=== PATIENT | male | born 1945 | race Caucasian/White ===

== ENCOUNTER → 2018-05-06 21:32 | Outpatient (CLI) | payer MEDICARE, SELFPAY ==
[2018-05-06 21:50] LABS: Absolute Lymphocyte Count 2.33 X10^3/ul (0.83-4.51); Absolute Neutrophil Count 4.7 X10^3/uL (2.0-7.7); Basophil# 0.03 X10^3/uL; Basophil% 0.4 % (0-1); Eosinophil# 0.26 X10^3/uL; Eosinophils% 3.3 % (0-5); Hemoglobin 15.9 g/dl (13.0-16.5); Lymphocyte # 2.33 X10^3/ul (4.0); Lymphocyte % 29.7 % (19-41); Mean Corp Hgb Conc 33.8 g/gl (32-36); Mean Corpuscular Hgb 29.4 pg (27.0-32.0); Mean Platelet Vol. 10.8 fl (6.2-12.0); Monocyte# 0.48 X10^3/uL; Monocyte% 6.1 % (0-10); Neutrophil # 4.72 X10^3/uL (2.7-7.7); Neutrophil % 60.2 % (47-70); Platelet Count 225 K/mm3 (150-450); RBC Distribution Width CV 12.8 % (11.6-14.6); RBC Distribution Width SD 40.8 fl (35.1-43.9); White Blood Count 7.8 K/mm3 (4.4-11.0)
[2018-05-06 21:51] LABS: POSITIVE COUNT NO; POSITIVE DIFFERENTIAL NO; POSITIVE MORPHOLOGY NO
[2018-05-06 21:54] LABS: ALB/GLOB Ratio 1.1 RATIO (0.9-2.4); AST(SGOT) 21 U/L (15-37); Alanine Aminotransfer ALT/SGPT 34 U/L (16-61); Alkaline Phosphatase 92 U/L (45-117); Anion Gap 7 (5-15); BUN 16 mg/dL (7-18); BUN/Creat Ratio 16.2 RATIO (10-20); Calcium,Total 8.7 mg/dL (8.5-10.1); Chloride 103 mmol/L (98-107); Cholesterol 185 mg/dL (200); Creatinine, Serum 0.98 mg/dL (0.70-1.30); EST Glomerular Filtration Rate 80 mL/min (>60); Est Glom Filt Rate - Afr Amer 97 mL/min (>60); Globulin 3.7 g/dL (2.2-4.2); Glucose 119 mg/dL (74-106); High Density Lipoprotein 29 mg/dL; Potassium 4.2 mmol/L (3.5-5.1); Protein, Total 7.7 g/dL (6.4-8.2); Sodium Level 136 mmol/L (136-145); Triglycerides 378 mg/dL; Very Low Density Lipoprotein 76 mg/dL (5-40)
== END ==
PROVIDERS: Referring Provider Nurse Practitioner; Visit Provider Nurse Practitioner
DX: I10 Essential (primary) hypertension (principal)
CPT/HCPCS: 80053; 80061; 85025

== ENCOUNTER → 2019-05-06 21:53 | Outpatient (CLI) | payer MEDICARE, SELFPAY ==
[2019-05-06 16:41] VITALS: BMI 34.3
[2019-05-06 22:01] LABS: Absolute Lymphocyte Count 2.89 X10^3/uL (0.83-4.51); Absolute Neutrophil Count 5.1 X10^3/uL (2.0-7.7); Basophil# 0.04 X10^3/uL; Basophil% 0.5 % (0-1); Eosinophil# 0.23 X10^3/uL; Eosinophils% 2.6 % (0-5); Hematocrit 48.5 % (40-54); Hemoglobin 16.2 g/dL (13.0-16.5); Lymphocyte # 2.89 X10^3/ul (4.0); Lymphocyte % 32.8 % (19-41); Mean Corp Hgb Conc 33.4 g/dL (32-36); Mean Corpuscular Hgb 28.8 pg (27.0-32.0); Mean Corpuscular Volume 86.3 fL (80-94); Mean Platelet Vol. 11.7 fl (6.2-12.0); Monocyte# 0.52 X10^3/uL; Monocyte% 5.9 % (0-10); NRBC Flagged by Analyzer 0 % (0-5); Neutrophil # 5.11 X10^3/uL (2.7-7.7); Platelet Count 239 K/mm3 (150-450); RBC Distribution Width CV 12.4 % (11.6-14.6); RBC Distribution Width SD 38.7 fl (35.1-43.9); Red Blood Count 5.62 M/mm3 (4.6-6.2); White Blood Count 8.8 K/mm3 (4.4-11.0)
[2019-05-06 22:29] LABS: ALB/GLOB Ratio 1.1 RATIO (0.9-2.4); AST(SGOT) 28 U/L (15-37); Alanine Aminotransfer ALT/SGPT 39 U/L (16-61); Albumin, Serum 4.2 g/dL (3.2-5.0); Alkaline Phosphatase 87 U/L (45-117); Anion Gap 7 (5-15); BUN 20 mg/dL (7-18); BUN/Creat Ratio 21.5 RATIO (10-20); Calcium,Total 9.2 mg/dL (8.5-10.1); Chloride 100 mmol/L (98-107); Cholesterol 202 mg/dL (200); Creatinine, Serum 0.93 mg/dL (0.70-1.30); EST Glomerular Filtration Rate 85 mL/min (>60); Est Glom Filt Rate - Afr Amer 103 mL/min (>60); Globulin 3.7 g/dL (2.2-4.2); Glucose 108 mg/dL (74-106); High Density Lipoprotein 34 mg/dL; PSA,Total - Annual Screen 0.84 ng/mL (0.00-4.00); Potassium 4.3 mmol/L (3.5-5.1); Protein, Total 7.9 g/dL (6.4-8.2); Sodium Level 136 mmol/L (136-145); Triglycerides 379 mg/dL; Very Low Density Lipoprotein 76 mg/dL (5-40)
== END ==
PROVIDERS: Referring Provider Nurse Practitioner; Visit Provider Nurse Practitioner
DX: R35.0 Frequency of micturition (principal); I10 Essential (primary) hypertension; E78.1 Pure hyperglyceridemia; Z12.5 Encounter for screening for malignant neoplasm of prostate
CPT/HCPCS: 80053; 80061; 84153; 85025; G0103

== ENCOUNTER → 2020-05-03 21:17 | Outpatient (CLI) | payer MEDICARE, SELFPAY ==
[2020-05-03 15:18] VITALS: BMI 33.1
[2020-05-03 21:28] LABS: Absolute Lymphocyte Count 2.02 X10^3/uL (0.83-4.51); Absolute Neutrophil Count 5.9 X10^3/uL (2.0-7.7); Basophil# 0.04 X10^3/uL; Basophil% 0.5 % (0-1); Eosinophil# 0.13 X10^3/uL; Eosinophils% 1.5 % (0-5); Hematocrit 46.2 % (40-54); Hemoglobin 15.4 g/dL (13.0-16.5); Lymphocyte # 2.02 X10^3/ul (4.0); Lymphocyte % 23.5 % (19-41); Mean Corp Hgb Conc 33.3 g/dL (32-36); Mean Corpuscular Hgb 29.2 pg (27.0-32.0); Mean Corpuscular Volume 87.5 fL (80-94); Mean Platelet Vol. 11.6 fl (6.2-12.0); Monocyte# 0.44 X10^3/uL; Monocyte% 5.1 % (0-10); NRBC Flagged by Analyzer 0 % (0-5); Neutrophil # 5.93 X10^3/uL (2.7-7.7); Neutrophil % 69.1 % (47-70); Platelet Count 249 K/mm3 (150-450); RBC Distribution Width CV 12.3 % (11.6-14.6); RBC Distribution Width SD 39.6 fl (35.1-43.9); Red Blood Count 5.28 M/mm3 (4.6-6.2); White Blood Count 8.6 K/mm3 (4.4-11.0)
[2020-05-03 22:08] LABS: ALB/GLOB Ratio 1.1 RATIO (0.9-2.4); AST(SGOT) 21 U/L (15-37); Alanine Aminotransfer ALT/SGPT 35 U/L (16-61); Albumin, Serum 4.1 g/dL (3.2-5.0); Alkaline Phosphatase 88 U/L (45-117); Anion Gap 5 (5-15); BUN 15 mg/dL (7-18); BUN/Creat Ratio 15.3 RATIO (10-20); Calcium,Total 9.3 mg/dL (8.5-10.1); Chloride 101 mmol/L (98-107); Cholesterol 194 mg/dL (200); Creatinine, Serum 0.98 mg/dL (0.70-1.30); EST Glomerular Filtration Rate 80 mL/min (>60); Est Glom Filt Rate - Afr Amer 96 mL/min (>60); Globulin 3.7 g/dL (2.2-4.2); Glucose 102 mg/dL (74-106); High Density Lipoprotein 38 mg/dL; Potassium 4.3 mmol/L (3.5-5.1); Protein, Total 7.8 g/dL (6.4-8.2); Sodium Level 137 mmol/L (136-145); Triglycerides 319 mg/dL; Very Low Density Lipoprotein 64 mg/dL (5-40)
== END ==
LOC: OLS.AHF 21:18 → LABSPEC 05-04 06:30
PROVIDERS: Visit Provider Nurse Practitioner
DX: I10 Essential (primary) hypertension (principal); E11.9 Type 2 diabetes mellitus without complications
CPT/HCPCS: 80053; 80061; 85025

== ENCOUNTER → 2022-05-02 | Outpatient (CLI) | payer MEDICARE, SELFPAY ==
[2022-05-02 22:04] LABS: Absolute Lymphocyte Count 1.73 X10^3/uL (0.83-4.51); Absolute Neutrophil Count 4.8 X10^3/uL (2.0-7.7); Basophil# 0.03 X10^3/uL; Basophil% 0.4 % (0-1); Eosinophil# 0.22 X10^3/uL; Hematocrit 44.4 % (40-54); Hemoglobin 14.6 g/dL (13.0-16.5); Lymphocyte # 1.73 X10^3/ul (0.83-4.51); Mean Corp Hgb Conc 32.9 g/dL (32-36); Mean Corpuscular Hgb 29.2 pg (27.0-32.0); Mean Corpuscular Volume 88.8 fL (80-94); Monocyte# 0.45 X10^3/uL; Monocyte% 6.2 % (0-10); NRBC Flagged by Analyzer 0 % (0-5); Neutrophil # 4.77 X10^3/uL (2.7-7.7); Neutrophil % 66.1 % (47-70); Platelet Count 219 K/mm3 (150-450); RBC Distribution Width CV 12.4 % (11.6-14.6); RBC Distribution Width SD 40.2 fl (35.1-43.9); White Blood Count 7.2 K/mm3 (4.4-11.0)
[2022-05-02 22:33] LABS: ALB/GLOB Ratio 1.2 RATIO (0.9-2.4); AST(SGOT) 25 U/L (15-37); Alanine Aminotransfer ALT/SGPT 47 U/L (16-61); Albumin, Serum 3.9 g/dL (3.2-5.0); Alkaline Phosphatase 93 U/L (45-117); Anion Gap 5 (5-15); BUN 23 mg/dL (7-18); BUN/Creat Ratio 25.5 RATIO (10-20); Calcium,Total 8.9 mg/dL (8.5-10.1); Chloride 105 mmol/L (98-107); Cholesterol 102 mg/dL (200); EST Glomerular Filtration Rate 87 mL/min (>60); Est Glom Filt Rate - Afr Amer 106 mL/min (>60); Globulin 3.3 g/dL (2.2-4.2); Glucose 111 mg/dL (74-106); High Density Lipoprotein 39 mg/dL; PSA,Total - Annual Screen 0.85 ng/mL (0.00-4.00); Potassium 4.6 mmol/L (3.5-5.1); Protein, Total 7.2 g/dL (6.4-8.2); Sodium Level 138 mmol/L (136-145); Triglycerides 163 mg/dL; Very Low Density Lipoprotein 33 mg/dL (5-40)
[2022-05-02 22:41] LABS: Hemoglobin A1c 6.4 % (3.8-5.6)
== END | disposition home or self-care (01) ==
PROVIDERS: Visit Provider Nurse Practitioner
DX: I10 Essential (primary) hypertension (principal); E11.9 Type 2 diabetes mellitus without complications; N40.0 Benign prostatic hyperplasia without lower urinary tract symptoms; Z12.5 Encounter for screening for malignant neoplasm of prostate
CPT/HCPCS: 80053; 80061; 83036; 84153; 85025; G0103

== ENCOUNTER → 2023-04-22 | Outpatient (CLI) | payer MEDICARE, SELFPAY ==
[2023-04-22 21:47] LABS: Absolute Lymphocyte Count 1.79 X10^3/uL (0.83-4.51); Absolute Neutrophil Count 5.2 X10^3/uL (2.0-7.7); Basophil# 0.04 X10^3/uL; Basophil% 0.5 % (0-1); Eosinophil# 0.19 X10^3/uL; Eosinophils% 2.5 % (0-5); Hematocrit 44.3 % (40-54); Hemoglobin 14.9 g/dL (13.0-16.5); Lymphocyte # 1.79 X10^3/ul (0.83-4.51); Lymphocyte % 23.6 % (19-41); Mean Corp Hgb Conc 33.6 g/dL (32-36); Mean Corpuscular Hgb 29.4 pg (27.0-32.0); Mean Corpuscular Volume 87.4 fL (80-94); Mean Platelet Vol. 11.6 fl (6.2-12.0); Monocyte# 0.35 X10^3/uL; Monocyte% 4.6 % (0-10); NRBC Flagged by Analyzer 0 % (0-5); Neutrophil # 5.18 X10^3/uL (2.7-7.7); Neutrophil % 68.4 % (47-70); Platelet Count 224 K/mm3 (150-450); RBC Distribution Width CV 12.7 % (11.6-14.6); RBC Distribution Width SD 40.4 fl (35.1-43.9); Red Blood Count 5.07 M/mm3 (4.6-6.2); White Blood Count 7.6 K/mm3 (4.4-11.0)
[2023-04-22 22:07] LABS: ALB/GLOB Ratio 1.3 RATIO (0.9-2.4); AST(SGOT) 23 U/L (15-37); Alanine Aminotransfer ALT/SGPT 49 U/L (16-61); Albumin, Serum 3.9 g/dL (3.2-5.0); Alkaline Phosphatase 82 U/L (45-117); Anion Gap 6 (5-15); BUN 23 mg/dL (7-18); Calcium,Total 8.8 mg/dL (8.5-10.1); Chloride 104 mmol/L (98-107); Cholesterol 96 mg/dL (200); Creatinine, Serum 1.15 mg/dL (0.70-1.30); EST Glomerular Filtration Rate 66 mL/min (>60); Est Glom Filt Rate - Afr Amer 80 mL/min (>60); Globulin 2.9 g/dL (2.2-4.2); Glucose 148 mg/dL (74-106); High Density Lipoprotein 41 mg/dL; Potassium 4.1 mmol/L (3.5-5.1); Protein, Total 6.8 g/dL (6.4-8.2); Sodium Level 138 mmol/L (136-145); Triglycerides 103 mg/dL; Very Low Density Lipoprotein 21 mg/dL (5-40)
[2023-04-23 14:05] LABS: Hemoglobin A1c 6.4 % (3.8-5.6)
== END | disposition home or self-care (01) ==
PROVIDERS: Visit Provider Nurse Practitioner
DX: E11.9 Type 2 diabetes mellitus without complications (principal); I10 Essential (primary) hypertension; E78.1 Pure hyperglyceridemia; N40.0 Benign prostatic hyperplasia without lower urinary tract symptoms
CPT/HCPCS: 80053; 80061; 83036; 84153; 85025

== ENCOUNTER → 2024-04-16 | Outpatient (CLI) | payer MEDICARE, SELFPAY ==
[2024-04-16 21:55] LABS: Absolute Lymphocyte Count 1.71 X10^3/uL (0.83-4.51); Absolute Neutrophil Count 5.5 X10^3/uL (2.0-7.7); Basophil# 0.04 X10^3/uL; Basophil% 0.5 % (0-1); Eosinophil# 0.24 X10^3/uL; Hematocrit 44.2 % (40-54); Hemoglobin 14.7 g/dL (13.0-16.5); Lymphocyte # 1.71 X10^3/ul (0.83-4.51); Lymphocyte % 21.6 % (19-41); Mean Corp Hgb Conc 33.3 g/dL (32-36); Mean Corpuscular Hgb 29.1 pg (27.0-32.0); Mean Corpuscular Volume 87.5 fL (80-94); Mean Platelet Vol. 11.8 fl (6.2-12.0); Monocyte# 0.37 X10^3/uL; Monocyte% 4.7 % (0-10); NRBC Flagged by Analyzer 0 % (0-5); Neutrophil # 5.51 X10^3/uL (2.7-7.7); Neutrophil % 69.8 % (47-70); Platelet Count 220 K/mm3 (150-450); RBC Distribution Width CV 13.3 % (11.6-14.6); RBC Distribution Width SD 42.5 fl (35.1-43.9); Red Blood Count 5.05 M/mm3 (4.6-6.2); White Blood Count 7.9 K/mm3 (4.4-11.0)
[2024-04-16 22:15] LABS: ALB/GLOB Ratio 1.3 RATIO (0.9-2.4); AST(SGOT) 21 U/L (15-37); Alanine Aminotransfer ALT/SGPT 41 U/L (16-61); Alkaline Phosphatase 80 U/L (45-117); Anion Gap 5 (5-15); BUN 19 mg/dL (7-18); BUN/Creat Ratio 21.6 RATIO (10-20); Calcium,Total 9.2 mg/dL (8.5-10.1); Chloride 105 mmol/L (98-107); Cholesterol 95 mg/dL (200); Creatinine, Serum 0.88 mg/dL (0.70-1.30); EST Glomerular Filtration Rate 89 mL/min (>60); Est Glom Filt Rate - Afr Amer 108 mL/min (>60); Glucose 112 mg/dL (74-106); High Density Lipoprotein 40 mg/dL; PSA,Total - Annual Screen 1.08 ng/mL (0.00-4.00); Potassium 4.2 mmol/L (3.5-5.1); Sodium Level 137 mmol/L (136-145); Triglycerides 118 mg/dL; Very Low Density Lipoprotein 24 mg/dL (5-40)
== END | disposition home or self-care (01) ==
PROVIDERS: PCP Nurse Practitioner; Referring Provider Nurse Practitioner; Visit Provider Nurse Practitioner
DX: E11.65 Type 2 diabetes mellitus with hyperglycemia (principal); N40.0 Benign prostatic hyperplasia without lower urinary tract symptoms; E78.1 Pure hyperglyceridemia; I10 Essential (primary) hypertension; Z12.5 Encounter for screening for malignant neoplasm of prostate
CPT/HCPCS: 80053; 80061; 84153; 85025; G0103

== ENCOUNTER → 2025-04-14 | Outpatient (CLI) | payer MEDICARE, SELFPAY ==
--- OUTSIDE RECORDS SUMMARY | 2025-04-14 21:51 | XMS RPT_ITS | CCD ---
Author Organization [facility] Care Team Providers Care Loaf Counter Name Role Phone Gorge Moore Unavailable Unavailable Claude Medina Unavailable Unavailable Stefano MANAGER ENVIRONMENTAL HEALTH.Claude LÓPEZ Primary Care Provide r Stefano MANAGER ENVIRONMENTAL HEALTH.Claude LÓPEZ Primary Care Provide r CLAUDE MEDINA Primary Care Unavailable GABBY GAMA Referring Unavailable GABBY GAMA Attending Unavailable CLAUDE MEDINA Primary Care Unavailable Stefano MANAGER ENVIRONMENTAL HEALTH.Claude LÓPEZ Primary Care Provide r Medications Current Medications Medication Drug Class(es) Dates Sig (Normalized) Sig (Original) aspirin 81 mg delayed release oral tablet (5 sources) Platelet Aggregation Inhibitor, Nonsteroidal Anti-inflammatory Drug take 1 tablet by mouth once daily aspirin, enteric coated 81 mg ORAL EC tablet Take 81 mg by mouth once daily. Active Comment on above: Take 81 mg by mouth once daily. ASPIRIN/SOD BICARB/CITRIC ACID (SVITLANA-SELTZER ORAL) (5 sources) ASPIRIN/SOD BICARB/CITRIC ACID (SVITLANA-SELTZER ORAL) Take by mouth as needed. Active ASPIRIN/SOD BICA RB/CITRIC ACID (SVITLANA-SELTZER ORAL) Take by mouth as needed. 0 Active Comment on above: Take by mouth as nee ded. atenolol 100 mg oral tablet (5 sources) beta-Adrenergic Bobby take 1 tablet by mouth once daily atenolol 100 mg ORAL tablet Take 100 mg by mouth once daily. Active Comment on above: Take 100 mg by mouth once daily. atorvastatin 80 mg oral tablet (5 sources) HMG-CoA Reductase Inhibitor Start: 1 take 1 tablet by mouth once daily at bedtime atorvastatin (LIPITOR) 80 mg tablet 1 tablet by ORAL/FEEDING TUBE route daily at bedtime. 90 tablet 1 04/26/2021 Active Start: 04-26-2021 take 1 tablet by zina th once daily at bedtime atorvastatin (LIPITOR) 80 mg tablet 1 tablet by ORAL/FEEDING TUBE route daily at bedtime. 90 tablet 1 04/26/2021 Active Comment on above: 1 tablet by ORAL/FEE DING TUBE route daily at bedtime. cholecalciferol 0.025 mg oral capsule (5 sources) Vitamin D Cholecalciferol, Vitamin D3, (VITAMIN D) 25 mcg (1,000 unit) cap Take 1,000 Units by mouth once daily. Active Comment on above: Take 1,000 Units by mouth once daily. clopidogrel 75 mg oral tablet (5 sources) P2Y12 Platelet Inhibitor Start: 04-27-20 take 1 tablet by mouth once daily clopidogrel (PLAVIX) 75 mg tablet Take 1 tablet by mouth once daily for 88 doses. 88 tablet 04/27/2021 Active Comment on above: Take 1 tablet by zina th once daily for 88 doses. CYANOCOBALAMIN/COBAMAMID E (B12 SUBLINGUAL) (5 sources) CYANOCOBALAMIN/C OBA MAMIDE (B12 SUBLINGUAL) Dissolve under the tongue once daily. Active CYANOCOBALAMIN/C OBAMAMIDE (B12 SUBLINGUAL) Dissolve under the tongue once daily. 0 Active Comment on above: Dissolve under the t ongue once daily. esomeprazole 40 mg delayed release oral capsule (5 sources) Proton Pump Inhibitor take 1 capsule by mouth once daily esomeprazole (NEXIUM) 40 mg capsule Take 40 mg by mouth once daily. Active Comment on above: Take 40 mg by mouth once daily. hydroCHLOROthiazide / Lisinopril (5 sources) Thiazide Diuretic, Angiotensin Converting Enzyme Inhibitor take 20 mg by mouth twice daily LISINOPRIL-HYDROCHLO ROTHIAZIDE ORAL Take 20 mg by mouth twice daily. Active take 20 mg by mouth twice daily LISINOPRIL-HYDROCHLOROTHIAZIDE ORAL Take 20 mg by mouth twice daily. 0 Active Comment on above: Take 20 mg by mouth twice daily. meclizine hydrochloride 12.5 mg oral tablet (5 sources) Antiemetic take 2 tablets by mouth every eight hours as needed meclizine (ANTIVERT) 12.5 mg tab Take 25 mg by mouth three times daily as needed. Active Comment on above: Take 25 mg by mouth three times daily as needed. metFORMIN hydrochloride 500 mg oral tablet (5 sources) Biguanide take 1 tablet by mouth twice daily at mealtime metFORMIN (GLUCOPHAGE) 500 mg tablet Take 500 mg by mouth twice daily with meals. Active Comment on above: Take 500 mg by mouth twice daily with meals. Mcqmdnzdfrdwk-Nibimpcw-L utein (CENTRUM SILVER) ORAL Tab (5 sources) take 1 tablet by mouth once daily Multivitamins-Plodding Operator als-Lutein (CENTRUM SILVER) ORAL Tab Take 1 tablet by mouth once daily. Active take 1 tablet by zina th once daily Bdxouefummyps-Rhfljjsd-Hfewgg (CENTRUM S ILVER) ORAL Tab Take 1 tablet by mouth once daily. 0 Active Comment on above: Take 1 tablet by zina th once daily. Opumt-4-XKM-EPA-Fis h Oil (FISH OIL) 1,000 (120-180) mg cap (1 source) Start: 02-06-2024 take 2 capsules by mouth once daily Tglny-6-OQM-EPA-Fis h Oil (FISH OIL) 1,000 (120-180) mg cap Take 2 capsules by mouth once daily. 02/06/2024 Active psyllium husk (METAMUCIL ORAL) (1 source) psyllium husk (METAMUCIL ORAL) Take by mouth. Active turmeric/turmeric ext/pepr ext (TURMERIC-TURMERIC EXT-PEPPER) 500-3 mg cap (1 source) turmeric/turmeri c ext/pepr ext (TURMERIC-TURMERIC EXT-PEPPER) 500-3 mg cap Take by mouth. Active Completed/Discontinued Medications Medication Drug Class(es) Dates Sig (Normalized) Sig (Original) doxycycline hyclate 100 mg oral tablet (1 source) Tetracycline-clas s Drug Start: 09-20-2019 take 1 tablet by mouth once daily Doxycycline Monohydrate 100 MG Oral Tablet TAKE 1 TABLET EVERY 12 HOURS DAILY. Quantity: 20 Refills: 0 Gorge Moore MD Start : 20-Sep-2019 Active Problems Problem Classification Problem Date Documented Date Episodic/Chronic Acute cerebrovascular disease (7 sources) Cerebrovascular accident; Translations: [Cerebral infarction, unspecified] Onset: 04-24-2021 Chronic Diabetes mellitus without complication (5 sources) Type 2 diabetes mellitus; Translations: [Type 2 diabetes mellitus without complications] Onset: 04-24-2021 04-26-2021 Chronic Disorders of lipid metabolism (6 sources) Mixed hyperlipidemia; Translations: [Mixed hyperlipidemia] Onset: 10-19-2021 Chronic Essential hypertension (7 sources) Essential hypertension; Translations: [Essential (primary) hypertension] Onset: 04-24-2021 Chronic Occlusion or stenosis of precerebral arteries (14 sources) Bilateral stenosis of carotid arteries; Translations: [Occlusion and stenosis of bilateral carotid arteries] Onset: 04-24-2021 Chronic Other nutritional; endocrine; and metabolic disorders (5 sources) Obese class I; Translations: [Obesity, unspecified] Onset: 04-24-2021 04-26-2021 Chronic Other screening for suspected conditions (not mental disorders or infectious disease) (2 sources) Patient encounter status; Translations: [Encounter for screening for cardiovascular disorders] Episodic Otitis media and related conditions (1 source) Infection of ear; Translations: [Infection of left ear] Episodic Results Test Name Value Interpretation Reference Range Facility CNOVon 05-04-2024 CNOV Office Visit (VASSMD ) KAMAR FOUNTAIN ([id number]) 1945 M Date Time Provider Department 05/04/24 1:15 PM GABBY GAMA During your visit today, we recorded the following information about you: Pulse Blood pressure 83/minute 126/64 Gabby Gama DO 05/04/2024 2:19 PM Signed [facility] [place] [facility] OUTPATIENT VISIT DATE May 04, 2024 OUTPATIENT VISIT TYPE ESTABLISHED SERVICE DATE: 05/04/2024 SERVICE TIME: 1:15 PM PRIMARY CARE PHYSICIAN: Claude Medina APRN.PHYSICIAN NEONATOLOGY HISTORY OF PRESENT ILLNESS: Mr. Fountain is a 78 year old male who presents today for a vascular surgery follow-up visit after carotid duplex. He denies any complaints. Denies focal neurologic deficit PAST MEDICAL HISTORY Diagnosis Date Carotid artery stenosis 04/24/2021 Hypertension Mixed hyperlipidemia 10/19/2021 Stroke (cerebrum) ([facility]) 04/24/2021 Type 2 diabetes mellitus ([facility]) 04/24/2021 PAST SURGICAL HISTORY Procedure Laterality Date APPENDECTOMY HX SOCIAL HISTORY Social History Tobacco Use Smoking status: Former Current packs/day: 0.00 Types: Cigarettes Quit date: 09/22/1991 Years since quittin.6 Smokeless tobacco: Never Substance Use Topics Alcohol use: No Drug use: No MEDICATIONS: atorvastatin (LIPITOR) 80 mg tablet 1 tablet by ORAL/FEEDING TUBE route daily at bedtime. metFORMIN (GLUCOPHAGE) 500 mg tablet Take 500 mg by mouth twice daily with meals. atenolol 100 mg ORAL tablet Take 100 mg by mouth once daily. aspirin, enteric coated 81 mg ORAL EC tablet Take 81 mg by mouth once daily. meclizine (ANTIVERT) 12.5 mg tab Take 25 mg by mouth three times daily as needed. (Patient not taking: Reported on 10/19/2021 ) Cholecalciferol, Vitamin D3, (VITAMIN D) 25 mcg (1,000 unit) cap Take 1,000 Units by mouth once daily. clopidogrel (PLAVIX) 75 mg tablet Take 1 tablet by mouth once daily for 88 doses. (Patient not taking: Reported on 10/19/2021 ) LISINOPRIL-HYDROCHLOROT HIAZIDE ORAL Take 20 mg by mouth twice daily. Multivitamins-Minerals- Lutein (CENTRUM SILVER) ORAL Tab Take 1 tablet by mouth once daily. CYANOCOBALAMIN/COBAMAMI DE (B12 SUBLINGUAL) Dissolve under the tongue once daily. esomeprazole (NEXIUM) 40 mg capsule Take 40 mg by mouth once daily. (Patient not taking: Reported on 10/19/2021 ) ASPIRIN/SOD BICARB/CITRIC ACID (SVITLANA-SELTZER ORAL) Take by mouth as needed. ALLERGIES: ALLERGIES No Known Allergies PHYSICAL EXAM: There were no vitals taken for this visit. Gen- no distress Neuro- no focal deficit Diagnostic tests reviewed for today's visit: Most recent labs Most recent imaging Carotid Duplex Compared to prior study of 02/26/2023, No change from previous study. RIGHT SIDE Common carotid artery: Plaque visualized without evidence of hemodynamically significant stenosis. Internal carotid artery: Occluded. Known occlusion. External carotid artery: Patent. Vertebral artery: Patent and antegrade flow noted. Innominate artery: Patent. Subclavian artery: Patent. LEFT SIDE Common carotid artery: Plaque visualized without evidence of hemodynamically significant stenosis. Internal carotid artery: 20-39% stenosis. External carotid artery: Patent. Vertebral artery: Patent and antegrade flow noted. Subclavian artery: Patent. IMPRESSION: Mr. Fountain is a 78 year old male with carotid artery stenosis . PLAN and RECOMMENDATIONS: Continue surveillance Recommend continued blood pressure and cholesterol control Follow up in 2 years with repeat imaging SIGNATURE: Gabby Gama DO PATIENT NAME: Kamar Fountain DATE: May 04, 2024 TIME: 1:15 PM Referring Provider: GABBY GAMA [[id number]] Allergies As of Date: 05/04/2024 (No Known Allergies) Date Reviewed: 05/04/2024 Reviewed by: Chana Bonilla OCCA - Fully Assessed Reason for Visit: Established Patient [175] Primary Visit Diagnosis:Bilateral carotid artery stenosis [I65.23] Prescriptions as of 05/04/2024 - psyllium husk (METAMUCIL ORAL) Take by mouth. - Wioxd-1-EZT-EPA-Fish Oil (FISH OIL) 1,000 (120-180) mg cap Take 2 capsules by mouth once daily. - turmeric/turmeric ext/pepr ext (TURMERIC-TURMERIC EXT-PEPPER) 500-3 mg cap Take by mouth. - meclizine (ANTIVERT) 12.5 mg tab Take 25 mg by mouth three times daily as needed. - Cholecalciferol, Vitamin D3, (VITAMIN D) 25 mcg (1,000 unit) cap Take 1,000 Units by mouth once daily. - atorvastatin (LIPITOR) 80 mg tablet 1 tablet by ORAL/FEEDING TUBE route daily at bedtime. - clopidogrel (PLAVIX) 75 mg tablet Take 1 tablet by mouth once daily for 88 doses. - metFORMIN (GLUCOPHAGE) 500 mg tablet Take 500 mg by mouth twice daily with meals. - atenolol 100 mg ORAL tablet Take 100 mg by mouth once daily. - LISINOPRIL-HYDROCHLOROT HIAZIDE ORAL T (more content not included)... Normal [facility] CAROTID ARTERIES [facility]AS LABon 05-04-2024 US CAROTID ARTERIES [facility] Non-Invasive Vascular Laboratory [facility] Carotid Duplex Bilateral/Complete Date of service/time: 05/04/2024 12:28:25 PM Name: KAMAR FOUNTAIN Date of : 1945 Age: 78 years Gender: M Medical History Tobacco: Former Carotid artery disease: Yes Hypertension: Yes Diabetes: Yes Clinical Indication Follow-up study on a patient with known carotid disease. TECHNIQUE -------- A carotid duplex ultrasound examination was performed, including grayscale imaging and color Doppler and spectral Doppler examination of the below mentioned arteries. FINDINGS -------- RIGHT SIDE Common carotid artery: Origin: PSV: 60 cm/s. EDV: 0 cm/s. Proximal: PSV: 93 cm/s. EDV: 0 cm/s. Mid: PSV: 92 cm/s. EDV: 0 cm/s. Distal: PSV: 41 cm/s. EDV: 7 cm/s. Mild heterogeneous calcified plaque at distal. Internal carotid artery: Origin: PSV: 0 cm/s. EDV: 0 cm/s. Proximal: PSV: 0 cm/s. EDV: 0 cm/s. Mid: PSV: 0 cm/s. EDV: 0 cm/s. Distal: PSV: 0 cm/s. EDV: 0 cm/s. ICA/CCA Ratio: 0.0 External carotid artery: PSV: 84 cm/s. EDV: 10 cm/s. heterogeneous calcified and shadowing plaque at origin. Subclavian artery: Proximal: PSV: 99 cm/s. EDV: 0 cm/s. Innominate artery: PSV: 75 cm/s. EDV: 0 cm/s. Vertebral artery: PSV: 46 cm/s. EDV: 13 cm/s. LEFT SIDE Common carotid artery: Proximal: PSV: 68 cm/s. EDV: 17 cm/s. Mid: PSV: 77 cm/s. EDV: 21 cm/s. Distal: PSV: 64 cm/s. EDV: 19 cm/s. Mild heterogeneous plaque at distal. Internal carotid artery: Origin: PSV: 75 cm/s. EDV: 19 cm/s. Proximal: PSV: 80 cm/s. EDV: 21 cm/s. Mid: PSV: 80 cm/s. EDV: 29 cm/s. Distal: PSV: 75 cm/s. EDV: 24 cm/s. heterogeneous calcified and shadowing plaque from origin to proximal. ICA/CCA Ratio: 1.2 External carotid artery: PSV: 87 cm/s. EDV: 14 cm/s. Subclavian artery: Proximal: PSV: 94 cm/s. EDV: 0 cm/s. Vertebral artery: PSV: 29 cm/s. EDV: 8 cm/s. IMPRESSION Irregular cardiac rhythm noted. Compared to prior study of 02/26/2023, No change from previous study. RIGHT SIDE Common carotid artery: Plaque visualized without evidence of hemodynamically significant stenosis. Internal carotid artery: Occluded. Known occlusion. External carotid artery: Patent. Vertebral artery: Patent and antegrade flow noted. Innominate artery: Patent. Subclavian artery: Patent. LEFT SIDE Common carotid artery: Plaque visualized without evidence of hemodynamically significant stenosis. Internal carotid artery: 20-39% stenosis. External carotid artery: Patent. Vertebral artery: Patent and antegrade flow noted. Subclavian artery: Patent. Technologist: Alyssa Rice T Ordering physician: GABBY GAMA Interpreting physician: Juan Farah MD, RPVI Final CC [facility] : [id number] ISUID See Link below for Image Normal [facility] Basic Metabolic Panlon 04-26 Anion gap [Moles/Vol] 8 mmol/L Low -18 [facility] Comment on above: Performed By: #### B MP, CBC ####[facility] [address] [place], [place] [phone] Calcium [Mass/Vol] 9.2 mg/dL Normal 8.5-10.2 [facility] Comment on above: Performed By: #### B MP, CBC ####[facility] [address] [place] [address] Chloride [Moles/Vol] 101 mmol/L Normal 97-105 [facility] Comment on above: Performed By: #### B MP, CBC ####[facility] [address] [place] [address] CO2 [Moles/Vol] 26 mmol/L Normal 22-30 [facility] Comment on above: Performed By: #### B MP, CBC ####[facility] [address] [place] [address] Creatinine [Mass/Vol] 0.88 mg/dL Normal 0.73-1.22 [facility] Comment on above: Performed By: #### B MP, CBC ####[facility] [address] [place] [address] eGFR- Amer. >60 Normal [facility] Comment on above: Performed By: #### B MP, CBC ####[facility] [address] [place] [address] eGFR-All Other Races >60 Normal [facility] Comment on above: Result Comment: eGFR (Estimated GFR) Units of measure: mL/min/1.73 meters squared eGFR is derived from the reexpressed MDRD Study equation using the following parameters: serum creatinine, age, gender and race. The creatinine assay has been calibrated to be traceable to IDMS. An eGFR <60 mL/min/1.73m2 for >3 months is consistent with chronic kidney disease. Refer to KDOQI guidelines for clinical interpretation. In patients with unstable renal function, e.g. those with acute kidney injury, the eGFR may not accurately reflect actual GFR. Performed By: #### B MP, CBC ####[facility] [address] [place] [address] Glucose [Mass/Vol] 111 mg/dL High 74-99 [facility] Comment on above: Result Comment: The Stateless Diabetes Association (ADA) provides guidance for cutoff values for fasting glucose and random glucose. The ADA defines fasting as no caloric intake for at least 8 hours. Fasting plasma glucose results between 100 to 125 mg/dL indicate increased risk for diabetes (prediabetes). Fasting plasma glucose results greater than or equal to 126 mg/dL meet the criteria for diagnosis of diabetes. In the absence of unequivocal hyperglycemia, results should be confirmed by repeat testing. In a patient with classic symptoms of hyperglycemia or hyperglycemic crisis, random plasma glucose results greater than or equal to 200 mg/dL meet the criteria for diagnosis of diabetes. Reference: Standards of Medical Care in Diabetes 2016, Stateless Diabetes Association. Diabetes Care. 2016.39(Suppl 1). Performed By: #### B MP, CBC ####[place] [address] Potassium [Moles/Vol] 3.9 mmol/L Normal 3.7-5.1 [facility] Comment on above: Performed By: #### B MP, CBC ####[place] [address] Sodium [Moles/Vol] 135 mmol/L Low 136-144 [facility] Comment on above: Performed By: #### B MP, CBC ####[place] [address] Urea nitrogen [Mass/Vol] 16 mg/dL Normal 9-24 [facility] Comment on above: Performed By: #### B MP, CBC ####[place] [address] CBCon 04-26-2021 Absolute nRBC <0.01 Normal <0.01 [facility] Comment on above: Performed By: #### B MP, CBC ####[place] [address] Erythrocyte distribution width (RBC) [Ratio] 12.5 % Normal 11.5-15.0 [facility] Comment on above: Performed By: #### B MP, CBC ####[place] [address] Hematocrit (Bld) [Volume fraction] 43.0 % Normal 39.0-51.0 [facility] Comment on above: Performed By: #### B MP, CBC ####[place] [address] Hemoglobin (Bld) [Mass/Vol] 14.9 g/dL Normal 13.0-17.0 [facility] Comment on above: Performed By: #### B MP, CBC ####[place] [phone] MCH 30.4 pG Normal 26.0-34.0 [facility] Comment on above: Performed By: #### B MP, CBC ####[facility] [address] [place], [place] [phone] MCHC (RBC) [Mass/Vol] 34.7 g/dL Normal 30.5-36.0 [facility] Comment on above: Performed By: #### B MP, CBC ####[facility] [address] [place], [place] [phone] MCV (RBC) [Entitic vol] 87.8 fL Normal 80.0-100.0 [facility] Comment on above: Performed By: #### B MP, CBC ####[facility] [address] [place], [place] [phone] Platelet mean volume (Bld) [Entitic vol] 11.3 fL Normal 9.0-12.7 [facility] Comment on above: Performed By: #### B MP, CBC ####[facility] [address] [place], [place] [phone] Platelets (Bld) [#/Vol] 212 10*3/uL Normal 150-400 [facility] Comment on above: Performed By: #### B MP, CBC ####[facility] [address] [place], [place] [phone] RBC (Bld) [#/Vol] 4.90 10*6/uL Normal 4.20-6.00 [facility] Comment on above: Performed By: #### B MP, CBC ####[facility] [address] [place], [place] [phone] WBC (Bld) [#/Vol] 8.25 10*3/uL Normal 3.70-11.00 [facility] Comment on above: Performed By: #### B MP, CBC ####[facility] [address] [place], [place] [phone] CNDSon 04-26-2021 CNDS HNO ID: [id number] Author: Jasmine Alcantara DO Service: Hospital Medicine Author Type: Physician Type: Discharge Summary Filed: 04/26/2021 11:09 AM Note Text: DISCHARGE SUMMARY PATIENT NAME: Kamar Fountain ADMISSION DATE: 04/23/2021 DISCHARGE DATE: 04/26/2021 ATTENDING PHYSICIAN: Jasmine Alcantara DO Code Status: Not on file Highest Readmission Risk Score: 15 The 30 day readmissions risk score is derived from an internally validated risk model which evaluates patient level characteristics, utilization history, medication orders and lab results up until the day of discharge. Patients with a score of 40 or above are considered highest risk for readmission. Specific patient level drivers will be listed at the bottom of the summary. CONSULTING TEAMS DURING HOSPITALIZATION: Treatment Team: Attending Provider: Jasmine Alcantara DO Consulting: MD Dr. Elizabteh Hirsch [facility] REASON FOR HOSPITALIZATION: Acute Stroke DIAGNOSIS: Principal Problem: Stroke (cerebrum) (HCC) POA: Yes Active Problems: Type 2 diabetes mellitus (HCC) POA: Unknown Hypertension POA: Unknown Obesity (BMI 30.0-34.9) POA: Unknown Carotid artery stenosis POA: Unknown Resolved Problems: * No resolved hospital problems. * OPERATIONS DURING HOSPITALIZATION: None PROCEDURES DURING HOSPITALIZATION: Echocardiogram The left ventricle is normal in size. There is mild septal left ventricular hypertrophy. Left ventricular systolic function is normal. EF = 69 ? 5% (2D biplane) Definity contrast used for endocardial border detection. Normal left ventricular diastolic function. - The right ventricle is dilated. Right ventricular systolic function is normal. - The right atrial cavity is dilated. - The visualized aorta is borderline dilated with a maximal dimension of 3.8 cm. - Tivial to mild tricuspid regurgitation. MRI Brain SMALL 8 MM FOCUS OF RESTRICTED DIFFUSION INVOLVING THE LEFT POSTERIOR/INFERIOR FRONTAL LOBE, COMPATIBLE WITH ACUTE INFARCT. NONSPECIFIC SMALL FOCI OF HIGH T2 SIGNAL INTENSITY SEEN INVOLVING THE WHITE MATTER, LIKELY REPRESENTING MILD CHRONIC MICROVASCULAR ISCHEMIC CHANGES. ABNORMAL FLOW VOID OF THE RIGHT INTERNAL CAROTID ARTERY, COMPATIBLE WITH OCCLUSION SEEN ON PRIOR CTA DATED 04/23/2021. CTA Brain ?Complete occlusion of the right ICA from origin to intradural communicating segment. Primary differential considerations include dissection versus thrombosis. * ?Moderate to severe calcified plaque of the left ICA bulb with approximately 60% stenosis. Moderate stenosis of the left nondominant vertebral artery origin and C5 foraminal segment. Otherwise, no significant stenosis on CTA neck. HOSPITAL COURSE: This is a 75 year old male with a history of hypertension, obesity, previous smoker, hard of hearing right ear. Patient was in apparent normal state of health until yesterday afternoon @1 PM when he developed dizziness which he describes as the room spinning around him including everything in the room. The dizziness persisted and subsequently he started having nausea with clear-colored emesis multiple times. He denies any headache, no change in vision, speech problem, gait problems, focal weakness, paresthesia, abdominal pain, chest pain, shortness of breath, fever no chills. He denies any URI symptoms recently, no tinnitus. No prior symptoms nor history of migraines ? The emergency room, blood pressure 152/72, pulse 76, temperature 97.4, respiratory rate 18. Labs with leukocytosis 14.54, hyperglycemia 225. COVID-19 negative. Troponin less than 0.01 CT brain no acute process. 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 Primary differential considerations includes dissection versus thrombosis Moderate to severe calcified plaque of the left ICA bulb with approximately 60% stenosis. Moderate stenosis of the left nondominant vertebral artery origin and C5 foraminal segment. EKG sinus rhythm with marked sinus arrhythmia. Chronic incomplete right bundle branch block. QTc 436. He received 1 L of normal saline, meclizine 25 mg x 1 and Ativan 1 mg x1 before admission On admission he was placed on stroke protocol. MRI of the brain was done and positive for stroke. He was seen in consult by tele-neurology. He was started on plavix and continued on aspirin therapy. He was also started on high dose statin. Echocardiogram was obtained. Risk factor modification was discussed. Neurology recommended DAPT for 3 months, follow up with stroke neuro then determine continuation of the plavix. He was also seen in consult by vascular surgery for carotid artery occlusion and stenosis. Statin and DAPT were recommended with outpatient follow up. His dizziness resolved and balance improved over the next 48 hours. He was seen by PT and outpatient PT was advised, but patient declined (more content not included)... Normal [facility] THERAPY NTon 04-26-2021 THERAPY NT HNO ID: [id number] Author: Suzanne Pierre OT/L Service: Occupational Therapy Author Type: Occupational Therapist Type: Therapy (PT/OT/Speech/Resp) Filed: 04/26/2021 10:19 AM Note Text: OCCUPATIONAL THERAPY MISSED VISIT SERVICE DATE: 04/26/2021 SERVICE TIME: 1018 to 1018 ROOM: [place] [address] Attempted Evaluation. Patient not seen due to No Skilled Needs. Pt reports no concerns with self care tasks at this time. Per RN, pt ready for d/c. Will discontinue OT order, please re-consult pending change in status. SIGNATURE: Suzanne Pierre OT/L PATIENT NAME: Kamar Fountain DATE: April 26, 2021 TIME: 10:18 AM [facility] ALLIED HEALTHon 04-25-2021 ALLIED HEALTH HNO ID: [id number] Author: DODIE Ulrich Service: Radiology Author Type: Clinical Hairspring Assembler Type: Allied Health Filed: 04/25/2021 10:59 AM Note Text: Radiology Service Progress Note PATIENT NAME: Kamar Fountain DATE OF SERVICE: April 25, 2021 TIME: 10:59 AM PATIENT IDENTITY VERIFICATION COMPLETED USING TWO (2) IDENTIFIERS: Name and Date of confirmed by patient verbally. FALL SCREENING: Has the patient had 2 falls in the last year or 1 fall with injury or currently using an Ambulatory Assistive Device (Walker, Cane, Wheelchair, Crutches, etc.)? Inpatient: Screened on floor PATIENT GENDER DATA: Male PATIENT RELEVANT IMPLANT DATA REVIEWED: Not Applicable RADIOLOGY DEPARTMENT: Ultrasound PERIPHERAL IV DATA: Not applicable SIGNED BY: DODIE Ulrich April 25, 2021 10:59 AM [facility] ASP/VINCENT Resist Panelon 04-25 ADP Max Aggreg 23 % Max Low 65-93 [facility] Comment on above: Performed By: #### A SPCLP ####[facility] [place], [place] [phone] Arach Max Aggreg 8 % Max Low 75-100 [facility] Comment on above: Performed By: #### A SPCLP ####[address] [phone] Interpretation (NOTE) Normal [facility] Comment on above: Result Comment: Perf orming Pathologist: Magda Paredes Interpretation: Abnormal - see comment below. The platelet aggregation study is abnormal and suggests combined therapy with aspirin and clopidogrel. If the patient is on aspirin therapy, the degree of platelet inhibition indicates aspirin responsiveness because the arachidonic acid aggregation is <20 percent and the ADP aggregation is <70 percent. These parameters were developed at the [facility] utilizing the assay and reagents performed on this patient's platelets. Moses OCASIO. Shayne Hutchinson. Diana OCASIO. Markie ROSEN. A prospective, blinded determination of the natural history of aspirin resistance among stable patients with cardiovascular disease. Journal of the Stateless College of Cardiology. 41(6):961-5, 2002. There is a decrease in ADP-induced platelet aggregation. Guidelines for optimal platelet inhibition during clopidogrel therapy have not been well-established. However, if the patient is currently receiving clopidogrel therapy, the results suggest clopidogrel response. No prior aspirin/clopidogrel results are available for comparison with the current study. The medication record indicates therapy with aspirin at 81 mg/day plus clopidogrel at 75 mg/day. Please correlate these laboratory results with clinical findings and medication history. Performed By: #### A SPCLP ####[facility] [address] [place], [place] [phone] Basic Metabolic Panlon 04-25 Anion gap [Moles/Vol] 9 mmol/L Normal 9-18 [facility] Comment on above: Performed By: #### B MP, CBC ####[facility] [address] [place] [address] Calcium [Mass/Vol] 9.3 mg/dL Normal 8.5-10.2 [facility] Comment on above: Performed By: #### B MP, CBC ####[facility] Ibynatbawe0567 [address] Chloride [Moles/Vol] 101 mmol/L Normal 97-105 [facility] Comment on above: Performed By: #### B MP, CBC ####[facility] Lzsigyrajs2944 [address] CO2 [Moles/Vol] 29 mmol/L Normal 22-30 [facility] Comment on above: Performed By: #### B MP, CBC ####[facility] Kuvqzmdtcy0168 [address] Creatinine [Mass/Vol] 0.95 mg/dL Normal 0.73-1.22 [facility] Comment on above: Performed By: #### B MP, CBC ####[facility] [address] [place] [address] eGFR- Amer. >60 Normal [facility] Comment on above: Performed By: #### B MP, CBC ####[facility] [address] [place] [address] eGFR-All Other Races >60 Normal [facility] Comment on above: Result Comment: eGFR (Estimated GFR) Units of measure: mL/min/1.73 meters squared eGFR is derived from the reexpressed MDRD Study equation using the following parameters: serum creatinine, age, gender and race. The creatinine assay has been calibrated to be traceable to IDMS. An eGFR <60 mL/min/1.73m2 for >3 months is consistent with chronic kidney disease. Refer to KDOQI guidelines for clinical interpretation. In patients with unstable renal function, e.g. those with acute kidney injury, the eGFR may not accurately reflect actual GFR. Performed By: #### B MP, CBC ####[facility] [address] [place] [address] Glucose [Mass/Vol] 116 mg/dL High 74-99 [facility] Comment on above: Result Comment: The Stateless Diabetes Association (ADA) provides guidance for cutoff values for fasting glucose and random glucose. The ADA defines fasting as no caloric intake for at least 8 hours. Fasting plasma glucose results between 100 to 125 mg/dL indicate increased risk for diabetes (prediabetes). Fasting plasma glucose results greater than or equal to 126 mg/dL meet the criteria for diagnosis of diabetes. In the absence of unequivocal hyperglycemia, results should be confirmed by repeat testing. In a patient with classic symptoms of hyperglycemia or hyperglycemic crisis, random plasma glucose results greater than or equal to 200 mg/dL meet the criteria for diagnosis of diabetes. Reference: Standards of Medical Care in Diabetes 2016, Stateless Diabetes Association. Diabetes Care. 2016.39(Suppl 1). Performed By: #### B MP, CBC ####[facility] Epnwavatxf0449 [address] Potassium [Moles/Vol] 4.0 mmol/L Normal 3.7-5.1 [facility] Comment on above: Performed By: #### B MP, CBC ####[facility] Fzjjxtqsew6728 [address] Sodium [Moles/Vol] 139 mmol/L Normal 136-144 [facility] Comment on above: Performed By: #### B MP, CBC ####[facility] [address] [place] [address] Urea nitrogen [Mass/Vol] 15 mg/dL Normal 9-24 [facility] Comment on above: Performed By: #### B MP, CBC ####[facility] [address] [place] [address] CBCon 04-25-2021 Absolute nRBC <0.01 Normal <0.01 [facility] Comment on above: Performed By: #### B MP, CBC ####[facility] [address] [place] [address] Erythrocyte distribution width (RBC) [Ratio] 12.8 % Normal 11.5-15.0 [facility] Comment on above: Performed By: #### B MP, CBC ####[place] [address] Hematocrit (Bld) [Volume fraction] 44.3 % Normal 39.0-51.0 [facility] Comment on above: Performed By: #### B MP, CBC ####[place] [address] Hemoglobin (Bld) [Mass/Vol] 15.2 g/dL Normal 13.0-17.0 [facility] Comment on above: Performed By: #### B MP, CBC ####[place] [address] MCH 30.3 pG Normal 26.0-34.0 [facility] Comment on above: Performed By: #### B MP, CBC ####[facility] [address] [place] [address] MCHC (RBC) [Mass/Vol] 34.3 g/dL Normal 30.5-36.0 [facility] Comment on above: Performed By: #### B MP, CBC ####[place] [address] MCV (RBC) [Entitic vol] 88.2 fL Normal 80.0-100.0 [facility] Comment on above: Performed By: #### B MP, CBC ####[facility] [address] [place] [address] Platelet mean volume (Bld) [Entitic vol] 10.9 fL Normal 9.0-12.7 [facility] Comment on above: Performed By: #### B MP, CBC ####[facility] Tseap[address]rfr6000 [phone] Platelets (Bld) [#/Vol] 203 10*3/uL Normal 150-400 [facility] Comment on above: Performed By: #### B MP, CBC ####[facility] Texyfangdj7647 [phone] RBC (Bld) [#/Vol] 5.02 10*6/uL Normal 4.20-6.00 [facility] Comment on above: Performed By: #### B MP, CBC ####[facility] [address] [place], [place] [phone] WBC (Bld) [#/Vol] 8.85 10*3/uL Normal 3.70-11.00 [facility] Comment on above: Performed By: #### B MP, CBC ####[facility] [address] [place], [place] [phone] CONSULT PROGon 04-25-2021 CONSULT PROG HNO ID: [id number] Author: Sherrie Castano MD Service: Neurology General Author Type: Physician Type: Consult Progress Note Filed: 04/25/2021 4:55 PM Note Text: [facility] TeleNeurology Consult Note Patient seen using Teleneurology Services. Recommendations are placed in the chart. Please review. For questions after hours, when teleneurologist is not available, for [place]: Please Page [phone] for the [facility] Neurology Group from 12pm to 8Am Admitting Provider/Consulted by:Gina Lopez MD Time of Note:04/25/2021 Patient Name:Kamar Fountain Admit Date:04/23/2021 Hospital Day:1 Patient is not dizzy any more. No weakness or numbness. Current Inpatient Medications: Scheduled meds: Current Facility-Administered Medications Medication Dose Route Frequency Provider Last Rate Last Admin - enoxaparin 40 mg injection (LOVENOX) 40 mg SUBCUTANEOUS q 24 HR Gina Lopez MD 40 mg at 04/25/21 0532 - NaCl 0.9% iv flush bag 20 mL INTRAVENOUS PRN Gina Lopez MD - sodium chloride 0.9 % (flush) 3-5 mL (BD POSIFLUSH) 3-5 mL INTRAVENOUS q 12 H Gina Lopez MD 5 mL at 04/24/212099 - sodium chloride 0.9 % (flush) 2-10 mL (BD POSIFLUSH) 2-10 mL INTRAVENOUS q 12 H Gina Lopez MD 5 mL at 04/24/21 2100 - aspirin 81 mg chewable tab(s) 81 mg ORAL/FEEDING TUBE DAILY Gina Lopez MD 81 mg at 04/24/21 0956 Or - aspirin 300 mg suppository 300 mg RECTAL DAILY Gina Lopez MD - ondansetron (PF) 4 mg injection (ZOFRAN) 4 mg INTRAVENOUS q 6 H PRN Gina Lopez MD - meclizine 25 mg tab(s) (ANTIVERT) 25 mg ORAL TID PRN Gina Lopez MD - dextrose 40 % 15 g 15 g ORAL PRN Gina Lopez MD Or - glucagon 1 mg injection 1 mg INTRAMUSCULAR PRN Gina Lopez MD Or - dextrose 50% in water 25 mL syringe 12.5 g INTRAVENOUS PRN Gina Lopez MD - pantoprazole DR 40 mg tab(s) (PROTONIX) 40 mg ORAL DAILY (6 AM) Gina Lopez MD 40 mg at 04/25/21 05 - clopidogrel 75 mg tab(s) (PLAVIX) 75 mg ORAL DAILY Sherrie Castano MD - atorvastatin 80 mg tab(s) (LIPITOR) 80 mg ORAL/FEEDING TUBE AT BEDTIME Sherrie Castano MD 80 mg at 04/24/212007 - sodium chloride 0.9 % (flush) 2-10 mL (BD POSIFLUSH) 2-10 mL INTRAVENOUS DIRECTED PRN Jasmine Alcantara DO And - perflutren lipid microspheres 1.1 mg/mL 1.3 mL injection (DEFINITY) 1.3 mL INTRAVENOUS DIRECTED PRN Jasmine Alcantara DO PHYSICAL EXAM: Performed over the teleneurology video Assisted by the teleneurology nurse at patient bedside BP 135/63 Pulse 60 Temp 36.3 ?C (97.4 ?F) (Temporal) Resp 18 Ht 175.3 cm (5' 9) Wt 100.4 kg (221 lb 5.5 oz) SpO2 95% BMI 32.69 kg/m? General Appearance: Well appearing, alert, in no acute distress, well-hydrated, well nourished. Neurological: ? Mental Status: Alert, with normal speech and language. Attention and concentration appeared normal. Oriented x 3. - Cranial Nerves: - CNII: Visual acuity normal, Visual eddy full to confrontation, Pupils OD 2-3mm, OS 2-3mm, equal, round and reactive to light, - CNIII, IV, : full extraoccular movements, nystagmus at primary gaze as well as right gaze. - CN V: Facial sensation intact bilaterally to fine touch and pinprick, masseter 5/5 - CN VII: right facial droop - CN VIII: Hears finger rub well bilaterally - CN IX: Gag Reflex Not examined - CN X: Palate elevates symmetrically - CN XI: Full strength shoulder shrug bilaterally - CN XII: Tongue protrusion full and midline ? Motor Exam: no muscle atrophy Individual muscle group was not assessed due to the indirect encounter over teleneurology RIGHT LEFT MUSCLES Upper Extremity 5 5 MUSCLES Lower Extremity 5 5 ? Reflexes Right Left Bicep 2/4 2/4 Tricep 2/4 2/4 Knee 0/4 0/4 Plantar Response Downward response Downward response ? Complex motor and coordination: No resting, postural or action tremor. No asterixis. Finger-to- nose-finger intact bilaterally Wbav-ye-vmai intact bilaterally. ? Sensory: Intact to light touch b/l. ? Gait: not assessed NIHSS: 1(a). Mental Status - LOC 0 = Alert and Attentive 1(b). LOC Questions 0 = Correct age and month 1(c). LOC-Commands 0 = Both 2. Gaze 0 = Normal 3. Visual Eddy 0 = Full 4. Facial Weakness 1 = Minor, lower 5(a). Left Arm 0 = No drift 5(b). Right Arm 0 = No drift 6(a). Left Leg 0 = No drift 6(b). Right Leg 0 = No drift 7. Ataxia 0 = Absent 8. Sensory 0 = Normal 9. Aphasia 0 = None 10. Dysarthria 0 = Absent 11. Neglect 0 = None NIHSS Total (0-42): 1 DATA: Diagnostic tests reviewed for today's visit, films/specimens were personally reviewed and interpreted by me: LABS: Lab Results Component Value Date PLT 247 04/24/2021 HB 15.0 04/24/2021 HCT 44.2 04/24/2021 ALB 4.2 04/24/2021 CA 9.0 04/24/2021 TBILI 0.5 04/24/2021 ALKPHOS 70 04/24/2021 AST 19 04/24/2021 GLUC 137 04/24/2021 (more content not included)... Normal [facility] CONSULT PROG HNO ID: [id number] Author: Sherrie Castano MD Service: Neurology General Author Type: Physician Type: Consult Progress Note Filed: 04/25/2021 2:39 PM Note Text: [facility] TeleNeurology Consult Note Patient seen using Teleneurology Services. Recommendations are placed in the chart. Please review. For questions after hours, when teleneurologist is not available, for [place]: Please Page [phone] for the [facility] Neurology Group from 12pm to 8Am Admitting Provider/Consulted by:Gina Lopez MD Time of Note:04/25/2021 Patient Name:Kamar Fountain Admit Date:04/23/2021 Hospital Day:1 Patient is not dizzy any more. No weakness or numbness. Current Inpatient Medications: Scheduled meds: Current Facility-Administered Medications Medication Dose Route Frequency Provider Last Rate Last Admin - enoxaparin 40 mg injection (LOVENOX) 40 mg SUBCUTANEOUS q 24 HR Gina Lopez MD 40 mg at 04/25/21 0532 - NaCl 0.9% iv flush bag 20 mL INTRAVENOUS PRN Gina Lopez MD - sodium chloride 0.9 % (flush) 3-5 mL (BD POSIFLUSH) 3-5 mL INTRAVENOUS q 12 H Gina Lopez MD 5 mL at 04/24/21 2100 - sodium chloride 0.9 % (flush) 2-10 mL (BD POSIFLUSH) 2-10 mL INTRAVENOUS q 12 H Gina Lopez MD 5 mL at 04/24/21 2100 - aspirin 81 mg chewable tab(s) 81 mg ORAL/FEEDING TUBE DAILY Gina Lopez MD 81 mg at 04/24/21 0956 Or - aspirin 300 mg suppository 300 mg RECTAL DAILY Gina Lopez MD - ondansetron (PF) 4 mg injection (ZOFRAN) 4 mg INTRAVENOUS q 6 H PRN Gina Lopez MD - meclizine 25 mg tab(s) (ANTIVERT) 25 mg ORAL TID PRN Gina Lopez MD - dextrose 40 % 15 g 15 g ORAL PRN Gina Lopez MD Or - glucagon 1 mg injection 1 mg INTRAMUSCULAR PRN Gina Lopez MD Or - dextrose 50% in water 25 mL syringe 12.5 g INTRAVENOUS PRN Gina Lopez MD - pantoprazole DR 40 mg tab(s) (PROTONIX) 40 mg ORAL DAILY (6 AM) Gina Lopez MD 40 mg at 04/25/21 0532 - clopidogrel 75 mg tab(s) (PLAVIX) 75 mg ORAL DAILY Sherrie Castano MD - atorvastatin 80 mg tab(s) (LIPITOR) 80 mg ORAL/FEEDING TUBE AT BEDTIME Sherrie Castano MD 80 mg at 04/24/212007 - sodium chloride 0.9 % (flush) 2-10 mL (BD POSIFLUSH) 2-10 mL INTRAVENOUS DIRECTED PRN Jasmine Alcantara DO And - perflutren lipid microspheres 1.1 mg/mL 1.3 mL injection (DEFINITY) 1.3 mL INTRAVENOUS DIRECTED PRN Jasmine Alcantara DO PHYSICAL EXAM: Performed over the teleneurology video Assisted by the teleneurology nurse at patient bedside BP 135/63 Pulse 60 Temp 36.3 ?C (97.4 ?F) (Temporal) Resp 18 Ht 175.3 cm (5' 9) Wt 100.4 kg (221 lb 5.5 oz) SpO2 95% BMI 32.69 kg/m? General Appearance: Well appearing, alert, in no acute distress, well-hydrated, well nourished. Neurological: ? Mental Status: Alert, with normal speech and language. Attention and concentration appeared normal. Oriented x 3. - Cranial Nerves: - CNII: Visual acuity normal, Visual eddy full to confrontation, Pupils OD 2-3mm, OS 2-3mm, equal, round and reactive to light, - CNIII, IV, : full extraoccular movements, nystagmus at primary gaze as well as right gaze. - CN V: Facial sensation intact bilaterally to fine touch and pinprick, masseter 5/5 - CN VII: right facial droop - CN VIII: Hears finger rub well bilaterally - CN IX: Gag Reflex Not examined - CN X: Palate elevates symmetrically - CN XI: Full strength shoulder shrug bilaterally - CN XII: Tongue protrusion full and midline ? Motor Exam: no muscle atrophy Individual muscle group was not assessed due to the indirect encounter over teleneurology RIGHT LEFT MUSCLES Upper Extremity 5 5 MUSCLES Lower Extremity 5 5 ? Reflexes Right Left Bicep 2/4 2/4 Tricep 2/4 2/4 Knee 0/4 0/4 Plantar Response Downward response Downward response ? Complex motor and coordination: No resting, postural or action tremor. No asterixis. Finger-to- nose-finger intact bilaterally Qdfk-mc-lxfb intact bilaterally. ? Sensory: Intact to light touch b/l. ? Gait: not assessed NIHSS: 1(a). Mental Status - LOC 0 = Alert and Attentive 1(b). LOC Questions 0 = Correct age and month 1(c). LOC-Commands 0 = Both 2. Gaze 0 = Normal 3. Visual Eddy 0 = Full 4. Facial Weakness 1 = Minor, lower 5(a). Left Arm 0 = No drift 5(b). Right Arm 0 = No drift 6(a). Left Leg 0 = No drift 6(b). Right Leg 0 = No drift 7. Ataxia 0 = Absent 8. Sensory 0 = Normal 9. Aphasia 0 = None 10. Dysarthria 0 = Absent 11. Neglect 0 = None NIHSS Total (0-42): 1 DATA: Diagnostic tests reviewed for today's visit, films/specimens were personally reviewed and interpreted by me: LABS: Lab Results Component Value Date PLT 247 04/24/2021 HB 15.0 04/24/2021 HCT 44.2 04/24/2021 ALB 4.2 04/24/2021 CA 9.0 04/24/2021 TBILI 0.5 04/24/2021 ALKPHOS 70 04/24/2021 AST 19 04/24/2021 GLUC 137 04/24/2021 (more content not included)... Normal [facility] Lipid Panel, [place] 021 Cholesterol [Mass/Vol] 184 mg/dL Normal <200 [facility] Comment on above: Performed By: #### L IPB ####[facility] Abxbqisptn2852 [address] Cholesterol in HDL [Mass/Vol] 35 mg/dL Low >39 [facility] Comment on above: Performed By: #### L IPB ####[facility] Pcqmzyevwg5425 [address] Cholesterol in LDL [Mass/Vol] 93 mg/dL Normal <100 [facility] Comment on above: Performed By: #### L IPB ####[facility] Urbcdxbqfd5143 [address] Fasting Time Unknown Normal [facility] Comment on above: Performed By: #### L IPB ####[facility] Yxrkbibqhh7096 [address] LDL:HDL Ratio 2.66 High <2.54 [facility] Comment on above: Result Comment: Refe rence: 1. National Cholesterol Education Program ATP III Guideline At-A-Glance Quick Desk Reference: National Heart, Lung, and Blood [place]. National Institutes of Health. 2001: NIH Publication No. 01-3305. 2. An International Atherosclerosis Society position paper: global recommendations for the management of dyslipidemia: executive summary, Atherosclerosis. 2014: 232(2):410-413. Performed By: #### L IPB ####[facility] [address] [place] [phone] Non HDL Cholesterol 149 mg/dL High <130 [facility] Comment on above: Performed By: #### L IPB ####[facility] Iy[address]ahbmw2148 [address] TC:HDL Ratio 5.26 High <5.10 [facility] Comment on above: Performed By: #### L IPB ####[facility] Hjrinikmye2414 [address] Triglyceride [Mass/Vol] 280 mg/dL High <150 [facility] Comment on above: Performed By: #### L IPB ####[facility] [address] [place] [address] VLDL Cholesterol 56 mg/dL High <30 [facility] Comment on above: Performed By: #### L IPB ####[facility] [address] [place] [address] THERAPY NTon 04-25-2021 THERAPY NT HNO ID: [id number] Author: Princess Sher, PT Service: Physical Therapy Author Type: Physical Therapist Type: Therapy (PT/OT/Speech/Resp) Filed: 04/25/2021 2:13 PM Note Text: Physical Therapy Evaluation SERVICE DATE: 04/25/2021 SERVICE TIME: 1116 to 1158 ROOM: [place] [address] Recommended Discharge Disposition: Outpatient Physical Therapy Recommended Discharge Disposition Comments: Pt with decreased balance post CVA, would benefit from high level balance activity for return to OF Anticipated Discharge Needs: Physical Assist at Home Physical Assist at Home for: Laundry;Cleaning;Meals; Shopping;Transportation (until returned to baseline) Recommended Discharge Equipment: Wheeled Walker (to be issued) PT 6 Clicks Score: 22 Precautions/Activity Restrictions: Fall Risk Current Hospital Course: + CVA Reason for Hospital Admission: dizziness, N/V Relevant Past Medical History: HTN Response to Therapy Interventions: Good participation in activities, Notable progression with functional activities/skills, On-track to achieve discharge goals Continue skilled needs due to: Functional mobility/skill impairments Treatment Interventions: Education;Joint Mobility;Strengthening; Functional Mobility Training;Balance Training Plan for next visit: Sit to Stand Transfers, Standing Balance, Walker Training Home Environment Patient Lives With: Spouse Assistance Available: 24 Hour Entry To Home: Stairs Number Of Stairs Into Home: 3 (platform) Number Of Stairs To Bed/Bath: 0 Tub/Shower Type: tub shower with grab bar Laundry: first floor Equipment Owned: Cane;Grab Bars-Shower;Hand Held Shower Prior Functional Level: Within Functional Limits Prior Functional Level Comments: Pt reports independence with ADLs/IADLs, no use of device, 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 Pt reports dizziness has subsided CURRENT FUNCTIONAL STATUS: Most recent performance Current Functional Mobility Assist Level Additional Information Rolling Supine to Sit Stand By Assistance Sit to Supine Stand By Assistance Scooting Stand By Assistance Sit to Stand Stand By Assistance Stand to Sit Stand By Assistance Bed to Chair Stand By Assistance Toilet/Commode Gait Contact Guard Assistance;Additional Information Gait Device: None;Wheeled Walker Gait Distance (feet): 1 x 120', 1 x 20' intermittent L lateral lean, able to readjust. 20' bout without device with decreased love/step length noted Stairs Curb Step Additional Information demonstration/vrbal explanation provided for technique with walker Car Transfer Blank eddy indicate activity not attempted General Deviations/Observations : Lateral sway increased Range of Motion: WFL Strength: WFL Balance: Static Sitting;Dynamic Sitting;Static Standing;Dynamic Standing Static Sitting Balance: Good Patient able to maintain balance without handhold support, limited postural sway Dynamic Sitting Balance: Good Patient accepts moderate challenge, able to maintain balance while picking up object off floor Static Standing Balance: Good Patient able to maintain balance without handhold support, limited postural sway Dynamic Standing Balance: Fair Patient accepts minimal challenge, able to maintain balance while turning head/trunk -HLM: 7: Walk 25 feet or more Learning/Educational Needs: Discharge Plan;Equipment;Family Education/Training;Func tional Activities/Mobility;Kay n of Care;Rehabilitation Techniques and Procedures;Safety Goals for Plan of Care: Patient /Caregiver Goals: Go Home Goals: Patient will demonstrate understanding of importance of mobility during hospital stay and resolve all functional needs identified.;Patient will demonstrate progress with functional mobility to allow safe discharge to home with available support and/or physical assistance.;Patient will demonstrate progress to optimize functional mobility, maximize activity tolerance and endurance to maximize function upon discharge. Progress Toward Goals: Progressing as expected Rehab Potential: Good Patient will be discontinued from Physical Therapy when no further skilled needs are identified in this setting. PLAN: PT Frequency: 5 times per week Plan of Care developed with: Patient (spouse) TREATMENT INTERVENTIONS: Therapy Diagnosis: Unsteadiness on feet Interventions Provided: Evaluation;Therapeutic Activity (55737);Gait Training (30044) $ Evaluation-Low (96464) Billed Units: 1 unit Therapeutic Activity (02027) Treatment Minutes: 15 $ Therapeutic Activity (63154) Billed Units: 1 unit Gait Training (57836) Treatment Minutes: 10 $ Gait Training (96718) Billed Units: 1 unit Training AND education provided in: Anatomy and impact on deficits, Assistive device use, Benefits of in-hospital mobility, Curb step navigation, Discharge planning, Disease specific education, Equipment, Expected function (more content not included)... [facility] THERAPY NT HNO ID: [id number] Author: Princess Sher PT Service: Physical Therapy Author Type: Physical Therapist Type: Therapy (PT/OT/Speech/Resp) Filed: 04/25/2021 9:56 AM Note Text: PHYSICAL THERAPY MISSED VISIT SERVICE DATE: 04/25/2021 SERVICE TIME: 0950 to 0950 ROOM: [place] [address] ([facility]) Attempted Evaluation. Patient not seen due to Test/Procedure (echo). SIGNATURE: Princess Sher PT PATIENT NAME: Kamar Fountain DATE: April 25, 2021 TIME: 9:56 AM [facility] US CAROTID BILon 04-25-2021 US CAROTID MECHE * * *Final Report* * * DATE OF EXAM: Apr 25 2021 10:57AM U 1077 - US CAROTID MECHE / PROCEDURE REASON: Stroke, follow up * * * * Physician Interpretation * * * * Duplex Ultrasound with Color Flow analysis of Carotid Arteries: HISTORY: Stroke, follow up TECHNIQUE: Grayscale and color-flow Doppler ultrasound were used to examine the carotid arterial systems bilaterally.Images stored and permanent archive. RESULT: Comparison: CTA neck 04/23/2021. Showed complete occlusion of the RIGHT internal carotid artery FINDINGS: Plaque: Mild amount of plaque in the distal common arteries bilaterally and LEFT proximal internal carotid arteries is seen. Large amount of calcified plaque in the distal common carotid arteries bilaterally ICA Peak Systolic Velocity (cm/sec) Right: Completely occluded Left 114 ICA End Diastolic Velocity (cm/sec) Right: Completely occluded Left: 32 CCA Peak Systolic Velocity (cm/sec) Right: 119 Left: 96 ECA Peak Systolic Velocity (cm/sec) Right: 103 Left: 107 Vertebrals Right: Antegrade Left: Antegrade ICA/CCA Systolic Velocity Ratio Right: N/A Left: 1.2 ICA Stenosis Estimation per NASCET criteria. Right: <30% Left: <30% IMPRESSION: 1. Complete occlusion RIGHT internal carotid artery 2. No other hemodynamically significant lesions are seen. 3. No significant plaque formation distal common proximal internal carotid arteries. Plastic And Reconstructive Surgeon: PSCB Transcribe Date/Time: Apr 25 2021 11:29A Dictated by : AUNDREA THAO DO This examination was interpreted and the report reviewed and electronically signed by: AUNDREA THAO DO on Apr 25 2021 11:33AM EST [id number] [facility] HNO ID: [id number] Author: DODIE Chavez Service: Radiology Author Type: Clinical Hairspring Assembler Type: [facility] Filed: 04/24/2021 12:20 PM Note Text: Radiology Service Progress Note PATIENT NAME: Kamar Fountain DATE OF SERVICE: April 24, 2021 TIME: 12:20 PM PATIENT IDENTITY VERIFICATION COMPLETED USING TWO (2) IDENTIFIERS: Name and Date of confirmed by patient verbally and Name and Date of confirmed by identification band. FALL SCREENING: Has the patient had 2 falls in the last year or 1 fall with injury or currently using an Ambulatory Assistive Device (Walker, Cane, Wheelchair, Crutches, etc.)? Inpatient: Screened on floor PATIENT GENDER DATA: Male PATIENT RELEVANT IMPLANT DATA REVIEWED: Yes RADIOLOGY DEPARTMENT: MR; Exam(s) Completed: Head: Routine Brain PERIPHERAL IV DATA: Not applicable SIGNED BY: DODIE Chavez April 24, 2021 12:20 PM [facility] HNO ID: [id number] Author: DODIE Neely Service: Radiology Author Type: Clinical Hairspring Assembler Type: [facility] Filed: 04/23/2021 10:38 PM Note Text: Radiology Service Progress Note DATE OF SERVICE: April 23, 2021 TIME: 10:37 PM PATIENT IDENTITY VERIFICATION COMPLETED USING TWO (2) STANDARD IDENTIFIERS: Name and Date of confirmed by patient verbally and Name and Date of confirmed by identification band. FALL SCREENING: Has the patient had 2 falls in the last year or 1 fall with injury or currently using an Ambulatory Assistive Device (Walker, Cane, Wheelchair, Crutches, etc.)? Emergency Room Patient: Screened in ED PATIENT GENDER DATA: Male PATIENT RELEVANT IMPLANT DATA REVIEWED: Not Applicable ALLERGIES: Reviewed and unchanged CONTRAST ALLERGY: NO. EXAM: CT -CONTRAST INDUCED NEPHROPATHY RISK FACTORS: Patient age > 60 years and Diabetic: Yes. Current medication(s): Metformin. Patient currently has insulin pump?: No. CREATININE: Creatinine Date Value Ref Range Status 04/23/2021 0.79 0.73 - 1.22 mg/dL Final 10/29/2011 0.76 0.70 - 1.40 mg/dL Final 10/08/2010 0.9 0.8 - 1.4 MG/DL Final eGFR-All Other Races Date Value Ref Range Status 04/23/2021 >60 . Final Comment: eGFR (Estimated GFR) Units of measure: mL/min/1.73 meters squared eGFR is derived from the reexpressed MDRD Study equation using the following parameters: serum creatinine, age, gender and race. The creatinine assay has been calibrated to be traceable to IDMS. An eGFR <60 mL/min/1.73m2 for >3 months is consistent with chronic kidney disease. Refer to KDOQI guidelines for clinical interpretation. In patients with unstable renal function, e.g. those with acute kidney injury, the eGFR may not accurately reflect actual GFR. eGFR- Date Value Ref Range Status 04/23/2021 >60 Final P.O.C.T. RESULTS: POC done: Yes, See Lab Tab April 23, 2021 TREATMENT: N/A PERIPHERAL IV DATA: Inpatient - refer to [facility] documentation RADIOLOGY DEPARTMENT: CT; Exam(s) Completed: CTA Brain and CTA Neck SIGNATURE: DODIE Neely PATIENT NAME: Kamar Fountain DATE: April 23, 2021 TIME: 10:37 PM Normal [facility] APC Resistanceon 04-24-2021 APC Resistance 2.52 Ratio Normal >1.96 [facility] Comment on above: Result Comment: The specimen was treated with heparinase to remove heparin activity from the plasma. No resistance to Activated Protein C was identified in a functional test. The Factor V Leiden mutation is unlikely. This does not exclude other causes for the hypercoagulable state. Performed By: #### F VIIIC, PRCFUN, AT3ASY, PRSCLT, APC, STACLT ####[facility] [place], [place] [phone]#### HYPER ####[place] [phone] Comment Test Not Indicated Normal [facility] Comment on above: Performed By: #### F VIIIC, PRCFUN, AT3ASY, PRSCLT, APC, STACLT ####[place] [phone]#### HYPER ####[place] [phone] APTTon 04-24-2021 aPTT Coag (Bld) [Time] 23.6 s Normal 23.0-32.4 [facility] Comment on above: Result Comment: Unfr actionated Heparin Therapeutic Ranges: Standard Heparin Nomogram: 53 to 78 seconds (anti-Xa level of 0.3 to 0.7 U/ml) Low Dose/ACS Nomogram: 49 to 67 seconds (anti-Xa level of 0.2 to 0.5 U/ml) Stroke Treatment Nomogram: 49 to 67 seconds (anti-Xa level of 0.2 to 0.5 U/ml) Note: The APTT therapeutic range has been determined for the current lot of laboratory APTT reagent in use throughout the [facility]. Performed By: #### H SCRP, PROCAL, HBA1C ####[place] [phone]#### PT, CBCDIF, PTT, CK ####[place] [address] Antithrombin Assayon 021 Antithrombin Assay 92 % Normal 84-138 [facility] Comment on above: Performed By: #### F VIIIC, PRCFUN, AT3ASY, PRSCLT, APC, STACLT ####[place] [phone]#### HYPER ####[address] [place], [place] [phone] CASE MGT INIT Tone 2020 CASE MGT INIT LEON HNO ID: [id number] Author: Veronica Messina RN Service: ? Author Type: Registered Nurse Type: Care Mgt Initial Assessment Filed: 04/24/2021 2:22 PM Note Text: CARE MANAGEMENT: ASSESSMENT AND DISCHARGE PLAN SERVICE DATE: April 24, 2021 SERVICE TIME: 2:12 PM parcel post carrier spoke with patient to complete Care Management Assessment. Introduction made and role of Care Management explained. PRIMARY CARE PHYSICIAN: Claude Medina APRN.PHYSICIAN NEONATOLOGY - confirms ADMISSION STATUS: Observation Needs Prior to Discharge: To Be Determined;OT/PT Evaluation MEDICAL: MEDICARE A AND B Patient/Direct Care Provider Stated Goals: To return home to life as it was Health Insurance: Medicare Health Issues Impacting Discharge Plan: Newly diagnosed;Chronic Newly Diagnosed: Dizziness Chronic: Hyperglycemia - HTN - Obesity Last Discharge Date: 10/29/11 Is this Within the Past 30 days? Last discharge within 30 days: No Advance Directive: Current Advance Directive: None Diving Supervisor Attempted to Assist with AD Completion: Yes Action: Education Provided Health LiteracyHow often do you need to have someone help you when you read instructions, pamphlets, or other written material from your doctor or pharmacy? : 1 - Never How confident are you filling out medical forms by yourself?: 1 - Extremely Baseline Mental Status Prior to this Illness what was the patient's Baseline Mental Status?: Alert AND Oriented Prior to this illness, has anyone described the patient having any of the following behaviors?: Not Applicable Relationship of the informant to the patient:: Self Functional Status: Independent Does Patient Currently Receive Any Community Services or Home Care?: None Equipment Prior to Admission: Cane;Glucometer Has the Patient Been in a Halfway Facility in the Past 30 days?: No Patient states only uses cane as needed. Not on a regular basis. Patient states he does not require any assistance prior to admission. . Drives himself. 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.) Primary Contact: Extended Emergency Contact Information Primary Emergency Contact: LISA FOUNTAIN Address: [address] [place], [place] [id number] [facility] Mobile Relation: None Supportive Patient Contact:: Yes Contact Resources: Family Family Name/Phone: LISA FOUNTAIN Caregiver AssessmentCaregiver is ready, willing and able to meet the patient's needs as recommended by the inter-professional team:: No Caregiver needed Does the patient have an acute stroke diagnosis, or has the patient had a stroke during this admission?: Unable to assess at this time Patient's transition needs and plan for meeting these needs: Home/Self Care. Spouse to Transport Home at Discharge. Patient's perception of need for this admission: Dizziness Medication Adherance I am convinced of the importance of my prescription medication: 0 - Agree Completely I worry that my prescription medication will do more harm than good to me : 0 - Disagree Completely I feel financially burdened by my qgl-sk-gajhyd expenses for my prescription medication:: 0 - Disagree Completely Risk Score: 0 Patient is categorized as: Low risk < 2 Medication Management: Self Pharmacy Preference: [facility] [place] Are you interested in bedside delivery of your medications? No Is Patient Psychosocially Complex?: No ASSESSMENT AND PLAN: Medical Needs: Medical Needs: Two or more chronic diseases Psychosocial Needs: Psychosocial Needs: None FREEDOM OF CHOICE EXPLAINED: [place] of Choice Given: No (No skilled service needs identified for discharge at this time.) POTENTIAL TRANSITION PLANS Discharge Needs: To be Determined PT/OT evaluations Patient anticipates returning Home/Self Care. Denies any discharge concerns or needs at this time. Spouse to Transport at Discharge. CM Dept to Follow. SIGNATURE: Veronica Messina RN PATIENT NAME: Kamar Fountain DATE: April 24, 2021 TIME: 2:08 PM PAGER/CONTACT #: [phone] Normal [facility] CBC and Differentialon 04-24 Abs Baso <0.03 Normal <0.11 [facility] Comment on above: Performed By: #### H SCRP, PROCAL, HBA1C ####[facility] [address] [place], [place] [phone]#### PT, CBCDIF, PTT, CK ####[facility] [address] [place] [address] Abs Eosin <0.03 Normal <0.46 [facility] Comment on above: Performed By: #### H SCRP, PROCAL, HBA1C ####[place] [address]#### PT, CBCDIF, PTT, CK ####[place] [address] Abs [place] 0.66 k/uL Normal <0.87 [facility] Comment on above: Performed By: #### H SCRP, PROCAL, HBA1C ####[place] [address]#### PT, CBCDIF, PTT, CK ####[place] [address] Abs Neut 11.13 k/uL High 1.45-7.50 [facility] Comment on above: Performed By: #### H SCRP, PROCAL, HBA1C ####[place] [address]#### PT, CBCDIF, PTT, CK ####[place] [address] Absolute nRBC <0.01 Normal <0.01 [facility] Comment on above: Performed By: #### H SCRP, PROCAL, HBA1C ####[place] [address]#### PT, CBCDIF, PTT, CK ####[place] [address] Basophils/100 WBC (Bld) 0.1 % Normal [facility] Comment on above: Performed By: #### H SCRP, PROCAL, HBA1C ####[place] [phone]#### PT, CBCDIF, PTT, CK ####[place] [address] DTYPE Auto Diff Normal [facility] Comment on above: Performed By: #### H SCRP, PROCAL, HBA1C ####[place] [address] [phone]#### PT, CBCDIF, PTT, CK ####[place] [address] Eosinophils/100 WBC (Bld) 0.0 % Normal [facility] Comment on above: Performed By: #### H SCRP, PROCAL, HBA1C ####[place] [address] [phone]#### PT, CBCDIF, PTT, CK ####[place] [address] Erythrocyte distribution width (RBC) [Ratio] 12.9 % Normal 11.5-15.0 [facility] Comment on above: Performed By: #### H SCRP, PROCAL, HBA1C ####[place] [address] [phone]#### PT, CBCDIF, PTT, CK ####[place] [address] Hematocrit (Bld) [Volume fraction] 44.2 % Normal 39.0-51.0 [facility] Comment on above: Performed By: #### H SCRP, PROCAL, HBA1C ####[place] [address] [place] [phone]#### PT, CBCDIF, PTT, CK ####[place] [address] Hemoglobin (Bld) [Mass/Vol] 15.0 g/dL Normal 13.0-17.0 [facility] Comment on above: Performed By: #### H SCRP, PROCAL, HBA1C ####[place] [address] [phone]#### PT, CBCDIF, PTT, CK ####[place] [address] Lymphocytes (Bld) [#/Vol] 1.64 10*3/uL Normal 1.00-4.00 [facility] Comment on above: Performed By: #### H SCRP, PROCAL, HBA1C ####[place] [address] [address] [phone]#### PT, CBCDIF, PTT, CK ####[place] [address] Lymphocytes/100 WBC (Bld) 12.2 % Normal [facility] Comment on above: Performed By: #### H SCRP, PROCAL, HBA1C ####[place] [phone]#### PT, CBCDIF, PTT, CK ####[place] [address] MCH 30.2 pG Normal 26.0-34.0 [facility] Comment on above: Performed By: #### H SCRP, PROCAL, HBA1C ####[place] [phone]#### PT, CBCDIF, PTT, CK ####[place] [address] MCHC (RBC) [Mass/Vol] 33.9 g/dL Normal 30.5-36.0 [facility] Comment on above: Performed By: #### H SCRP, PROCAL, HBA1C ####[place] [address] [phone]#### PT, CBCDIF, PTT, CK ####[place] [address] MCV (RBC) [Entitic vol] 89.1 fL Normal 80.0-100.0 [facility] Comment on above: Performed By: #### H SCRP, PROCAL, HBA1C ####[address] [phone]#### PT, CBCDIF, PTT, CK ####[facility] [address] [place] [address] Monocytes/100 WBC (Bld) 4.9 % Normal [facility] Comment on above: Performed By: #### H SCRP, PROCAL, HBA1C ####[place] [address] [phone]#### PT, CBCDIF, PTT, CK ####[place] [address] Neutrophils/100 WBC (Bld) 82.8 % Normal [facility] Comment on above: Performed By: #### H SCRP, PROCAL, HBA1C ####[place] [address] [address] [phone]#### PT, CBCDIF, PTT, CK ####[place] [address] NRBCs 0.0 /100 WBC Normal 0 [facility] Comment on above: Performed By: #### H SCRP, PROCAL, HBA1C ####[place] [address] [phone]#### PT, CBCDIF, PTT, CK ####[place] [address] Platelet mean volume (Bld) [Entitic vol] 11.4 fL Normal 9.0-12.7 [facility] Comment on above: Performed By: #### H SCRP, PROCAL, HBA1C ####[place] [address] [phone]#### PT, CBCDIF, PTT, CK ####[place] [address] Platelets (Bld) [#/Vol] 247 10*3/uL Normal 150-400 [facility] Comment on above: Performed By: #### H SCRP, PROCAL, HBA1C ####[place] [address] [address] [phone]#### PT, CBCDIF, PTT, CK ####[place] [address] [place] [phone] RBC (Bld) [#/Vol] 4.96 10*6/uL Normal 4.20-6.00 [facility] Comment on above: Performed By: #### H SCRP, PROCAL, HBA1C ####[place] [phone]#### PT, CBCDIF, PTT, CK ####[facility] [address] [place], [place] [phone] WBC (Bld) [#/Vol] 13.44 10*3/uL High 3.70-11.00 [facility] Comment on above: Performed By: #### H SCRP, PROCAL, HBA1C ####[place] [phone]#### PT, CBCDIF, PTT, CK ####[facility] [address] [place] [address] CKon 04-24-2021 CK [Catalytic activity/Vol] 123 U/L Normal 51-298 [facility] Comment on above: Performed By: #### H SCRP, PROCAL, HBA1C ####[place] [phone]#### PT, CBCDIF, PTT, CK ####[facility] [address] [place] [address] CONSULTon 04-24-2021 CONSULT HNO ID: [id number] Author: Robert Quiles MD Service: Vascular Surgery Author Type: Physician Type: Consults Filed: 04/24/2021 1:33 PM Note Text: [facility] INITIAL CONSULT Service Date: 04/24/2021 Admit Date: 04/23/2021 Service Time: 1215 LOS: 0 Vascular Physician: Robert Quiles MD Subjective Chief Complaint: Carotid artery stenosis HPI: Mr Fountain is a 75 y/o male PMH HTN, former smoker admitted yesterday for complaints of vertigo and nausea. Onset of symptoms presented after waking up from a nap following voodoo attendance. He notes the dizziness has somewhat improved. Denies prior episodes, denies history of stroke. Underwent CT head which was negative for infarction. CTA head/neck demonstrated occlusion of right ICA extending to skull base. Left ICA with 60% stenosis. He is active day to day, engaged in yardwork and chores. Denies any chest pain or shortness of breath with activities. Had been on ASA as outpatient. Started on plavix and statin therapy. PAST MEDICAL HISTORY Diagnosis Date - Hypertension PAST SURGICAL HISTORY Procedure Laterality Date - APPENDECTOMY HX No family history on file. Social History Tobacco Use - Smoking status: Former Smoker - Smokeless tobacco: Never Used Substance Use Topics - Alcohol use: No - Drug use: No atenolol 100 mg ORAL tablet, Take 100 mg by mouth once daily., Disp: , Rfl: , 04/23/2021 at Unknown time LISINOPRIL-HYDROCHLOROT HIAZIDE ORAL, Take 20 mg by mouth twice daily. , Disp: , Rfl: , 04/23/2021 at Unknown time aspirin, enteric coated 81 mg ORAL EC tablet, Take 81 mg by mouth once daily., Disp: , Rfl: , 04/23/2021 at Unknown time Multivitamins-Minerals- Lutein (CENTRUM SILVER) ORAL Tab, Take 1 tablet by mouth once daily., Disp: , Rfl: , 04/23/2021 at Unknown time CYANOCOBALAMIN/COBAMAMI DE (B12 SUBLINGUAL), Dissolve under the tongue once daily. , Disp: , Rfl: , 04/23/2021 at Unknown time esomeprazole (NEXIUM) 40 mg ORAL capsule, Take 40 mg by mouth once daily. , Disp: , Rfl: , 04/23/2021 at Unknown time ASPIRIN/SOD BICARB/CITRIC ACID (SVITLANA-SELTZER ORAL), Take by mouth as needed. , Disp: , Rfl: ondansetron 4 mg ORAL tablet, Take 1 tablet by mouth every 4 hours as needed for Nausea/Vomiting., Disp: 8 tablet, Rfl: 0 Current Facility-Administered Medications Medication Dose Route Frequency - iv contrast (radiology procedure) INTRAVENOUS DIRECTED PRN - enoxaparin 40 mg injection (LOVENOX) 40 mg SUBCUTANEOUS q 24 HR - NaCl 0.9% iv flush bag 20 mL INTRAVENOUS PRN - sodium chloride 0.9 % (flush) 3-5 mL (BD POSIFLUSH) 3-5 mL INTRAVENOUS q 12 H - sodium chloride 0.9 % (flush) 2-10 mL (BD POSIFLUSH) 2-10 mL INTRAVENOUS q 12 H - aspirin 81 mg chewable tab(s) 81 mg ORAL/FEEDING TUBE DAILY Or - aspirin 300 mg suppository 300 mg RECTAL DAILY - ondansetron (PF) 4 mg injection (ZOFRAN) 4 mg INTRAVENOUS q 6 H PRN - meclizine 25 mg tab(s) (ANTIVERT) 25 mg ORAL TID - [START ON 04/25/2021] meclizine 25 mg tab(s) (ANTIVERT) 25 mg ORAL TID PRN - dextrose 40 % 15 g 15 g ORAL PRN Or - glucagon 1 mg injection 1 mg INTRAMUSCULAR PRN Or - dextrose 50% in water 25 mL syringe 12.5 g INTRAVENOUS PRN - pantoprazole DR 40 mg tab(s) (PROTONIX) 40 mg ORAL DAILY (6 AM) - [START ON 04/25/2021] clopidogrel 75 mg tab(s) (PLAVIX) 75 mg ORAL DAILY - atorvastatin 80 mg tab(s) (LIPITOR) 80 mg ORAL/FEEDING TUBE AT BEDTIME Medication and Non-Pharmacologic VTE Prophylaxis/Anticoagula nts Anticoagulant AND Antiplatelet Medications (From admission, onward) Start Dose Route Frequency Last Action Ordered Stop 04/25/21899 clopidogrel 75 mg tab(s) (PLAVIX) 75 mg ORAL DAILY Ordered 04/24/2115 05/15/21 0859 04/24/21 09 aspirin 81 mg chewable tab(s) (aspirin non-enteric coated 81mg ORAL OR 300mg AL) 81 mg PO/FT DAILY Given, 04/24 95604/24/21537 -- 04/24/21599 enoxaparin 40 mg injection (LOVENOX) (Medical Risk Categories) 40 mg SUBCUTANEOUS EVERY 24 HOURS Given, 04/24 60304/24/21537 -- 04/24/21599 activity - mobilize patient (dc,wa) ALLERGIES No Known Allergies COMPLETE REVIEW OF SYSTEMS CONSTITUTIONAL: no malaise remainder ROS noncontributory Objective PHYSICAL EXAM Physical Exam Performed Patient Vitals for the past 24 hrs: BP Temp Temp src Pulse Resp SpO2 Height Weight 04/24/21 1250 158/72 36.4 ?C (97.5 ?F) Temporal 67 16 96 % ? ? 04/24/21 1000 143/68 36.4 ?C (97.6 ?F) Temporal 64 16 ? ? ? 04/24/21 0800 126/60 36.5 ?C (97.7 ?F) Temporal 73 16 96 % ? ? 04/24/21 0549 134/63 36.3 ?C (97.4 ?F) Temporal 71 16 94 % 175.3 cm (5' 9) 101.8 kg (224 lb 6.9 oz) 04/24/21 0500 127/60 ? ? 66 15 96 % ? ? 04/24/21 0400 131/64 ? ? 75 13 95 % ? ? 04/24/21 0200 121/56 ? ? 71 17 (!) 93 % ? ? 04/24/21 0109 139/66 ? ? 79 20 99 % ? ? 04/24/21 0036 147/82 ? ? 78 20 97 % ? ? 04/24/21 0002 127/61 ? ? (!) 95 20 97 % ? ? 04/23/21 2300 122/55 ? ? 76 17 96 % ? ? (more content not included)... [facility] CONSULT HNO ID: [id number] Author: Sherrie Castano MD Service: Neurology General Author Type: Physician Type: Consults Filed: 04/24/2021 9:30 AM Note Text: [facility] TeleNeurology Consult Note Patient seen using Teleneurology Services. Recommendations are placed in the chart. Please review. For questions after hours, when teleneurologist is not available, for [place]: Please Page [phone] for the [facility] from 12pm to 8Am Admitting Provider/Consulted by:Gina Lopez MD Time of Note:04/24/2021 Patient Name:Kamar Fountain Admit Date:04/23/2021 Hospital Day:0 CC: dizzy History of Present Illness: Kamar Fountain is a 75 year old right handed male with a past medical history of hypertension, DMII, obesity, previous smoker quit 37 years ago, hard of hearing right ear, who presented with vertigo. LKW/time of onset was 1pm yesterday afternoon when he was standing and started to feel room spinning and dizziness. He had some trouble to walk due to lack of balance. He feels ok when eyes are closed. He feels dizzy when eyes are open. No diplopia. No weakness or numbness. He endorsed slight nausea. No LOC. Prior to Admission medications : Medication atenolol 100 mg ORAL tablet, Sig Take 100 mg by mouth once daily., Start Date , End Date , Taking? Yes, Authorizing Provider [facility] Provider Medication LISINOPRIL-HYDROCHLOROT HIAZIDE ORAL, Sig Take 20 mg by mouth twice daily. , Start Date , End Date , Taking? Yes, Authorizing Provider [facility] Provider Medication aspirin, enteric coated 81 mg ORAL EC tablet, Sig Take 81 mg by mouth once daily., Start Date , End Date , Taking? Yes, Authorizing Provider [facility] Provider Medication Multivitamins-Minerals- Lutein (CENTRUM SILVER) ORAL Tab, Sig Take 1 tablet by mouth once daily., Start Date , End Date , Taking? Yes, Authorizing Provider [facility] Provider Medication CYANOCOBALAMIN/COBAMAMI DE (B12 SUBLINGUAL), Sig Dissolve under the tongue once daily. , Start Date , End Date , Taking? Yes, Authorizing Provider [facility] Provider Medication esomeprazole (NEXIUM) 40 mg ORAL capsule, Sig Take 40 mg by mouth once daily. , Start Date , End Date , Taking? Yes, Authorizing Provider [facility] Provider Medication ASPIRIN/SOD BICARB/CITRIC ACID (SVITLANA-SELTZER ORAL), Sig Take by mouth as needed. , Start Date , End Date , Taking? Yes, Authorizing Provider [facility] Provider Medication ondansetron 4 mg ORAL tablet, Sig Take 1 tablet by mouth every 4 hours as needed for Nausea/Vomiting., Start Date 10/29/11, End Date , Taking? Yes, Authorizing Provider Dori Maldonado Current Inpatient Medications: Scheduled meds: Current Facility-Administered Medications Medication Dose Route Frequency Provider Last Rate Last Admin - enoxaparin 40 mg injection (LOVENOX) 40 mg SUBCUTANEOUS q 24 HR Gina Lopez MD 40 mg at 04/24/21 0603 - NaCl 0.9% iv flush bag 20 mL INTRAVENOUS PRN Gina Lopez MD - sodium chloride 0.9 % (flush) 3-5 mL (BD POSIFLUSH) 3-5 mL INTRAVENOUS q 12 H Gina Lopez MD 5 mL at 04/24/21 0603 - sodium chloride 0.9 % (flush) 2-10 mL (BD POSIFLUSH) 2-10 mL INTRAVENOUS q 12 H Gina Lopez MD - aspirin 81 mg chewable tab(s) 81 mg ORAL/FEEDING TUBE DAILY Gina Lopez MD Or - aspirin 300 mg suppository 300 mg RECTAL DAILY Gina Lopez MD - atorvastatin 40 mg tab(s) (LIPITOR) 40 mg ORAL/FEEDING TUBE AT BEDTIME Gina Lopez MD - ondansetron (PF) 4 mg injection (ZOFRAN) 4 mg INTRAVENOUS q 6 H PRN Gina Lopez MD - meclizine 25 mg tab(s) (ANTIVERT) 25 mg ORAL TID Gina Lopez MD - [START ON 04/25/2021] meclizine 25 mg tab(s) (ANTIVERT) 25 mg ORAL TID PRN Gina Lopez MD - dextrose 40 % 15 g 15 g ORAL PRN Gina Lopez MD Or - glucagon 1 mg injection 1 mg INTRAMUSCULAR PRN Gina Lopez MD Or - dextrose 50% in water 25 mL syringe 12.5 g INTRAVENOUS PRN Gina Lopez MD - pantoprazole DR 40 mg tab(s) (PROTONIX) 40 mg ORAL DAILY (6 AM) Gina Lopez MD 40 mg at 04/24/21 0635 - iv contrast (radiology procedure) INTRAVENOUS DIRECTED PRN Erickson Alomdovar MD PAST MEDICAL HISTORY Diagnosis Date - Hypertension PAST SURGICAL HISTORY Procedure Laterality Date - APPENDECTOMY HX Social History Tobacco Use - Smoking status: Former Smoker - Smokeless tobacco: Never Used Substance Use Topics - Alcohol use: No - Drug use: No No family history on file. ALLERGIES No Known Allergies REVIEW OF SYSTEMS: GENERAL: Normal sleep, appetite and activity. No fevers or irritability. HEENT: Negative for headaches, No problems with hearing or vision, no nose bleeds or other nasal problems NECK: Negative for stiffness, lumps or significant neck swelling RESPIRATORY: Negative for cough, wheezing or respiratory distress CARDIOVASCULAR: Negative for chest pain, syncope, lightheadness or heart racing GI: No nausea, vomiting, or (more content not included)... Normal [facility] CTA HEAD W IVCONon 1 CTA HEAD W IVCON * * *Final Report* * * DATE OF EXAM: Apr 23 2021 10:36PM [facility] - CTA HEAD W IVCON / PROCEDURE REASON: Ataxia, stroke suspected * * * * Physician Interpretation * * * * EXAMINATION: CTA NECK W IVCON, CTA HEAD W IVCON HISTORY: Intracranial hemorrhage DIZZINESS/VERTIGO TECHNIQUE: Spiral high resolution axial images were obtained through the head, neck and superior mediastinum following bolus administration of intravenous contrast for CT angiography. The data was subsequently post-processed utilizing 3D multi-planar reconstructions, 3D maximum intensity projections, and a tissue segmentation algorithm at a separate workstation under physician supervision. MQ: CTABNPlus_3 Contrast: 80 mL Omnipaque 350 IV Dose-Length Product (DLP): 715 mGy*cm CT Dose Reduction Employed: No dose reduction techniques were required COMPARISON: None. RESULT: NECK: Soft tissues: The soft tissue planes are maintained throughout. No evidence of a soft tissue mass in the neck or superior mediastinum. No significant lymphadenopathy is seen. Spine: Alignment is normal. Multilevel age-related degenerative changes which are greatest at C5-6 and C6-7 where calcified disc osteophyte complexes cause moderate spinal canal stenosis. Lung apices: The visualized lungs are clear. CT ARTERIOGRAM: Extracranial Circulation: Aortic Arch: There is a normal branching pattern from the aortic arch. There is no significant stenosis in the proximal brachiocephalic vessels. Carotid Stenosis: Right Common: No significant stenosis with scattered plaque. Right Internal Carotid Plaque: Mild to moderate plaque formation with complete occlusion just past bifurcation. Right Internal Carotid Stenosis (% by NASCET Criteria): 100 percent Left Common: No significant stenosis. Left Internal Carotid Plaque: Moderate to severe calcified plaque formation. Left Internal Carotid Stenosis (% by NASCET Criteria): Approximate 60 percent Cervical Vertebral Arteries: Patency: Moderate calcification of the left nondominant origin and foraminal C5 extracranial vertebral artery. No focal or significant stenosis of the right dominant extracranial vertebral artery. Dominance: Right Intracranial Circulation: Spot Sign Presence: Not Applicable Spot Sign Number: Not Applicable Anterior Circulation: Complete occlusion of the right cavernous and communicating ICA with opacification of the right MCA and MANDO with caliber overall similar to contralateral side. Otherwise, no large vessel occlusion or significant stenosis. No evidence of aneurysm. Left circulation. Vertebrobasilar Circulation: Scattered atherosclerotic changes with mild to moderate focal short segment stenosis of the right dominant intradural vertebral artery and somewhat overall uniform a small caliber of the basilar artery which is likely secondary to circulation. No significant superimposed short segment stenosis of the basilar artery. No filling defect of the opacified dural venous sinuses to suggest thrombus. No evidence of vascular. 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 Primary differential considerations include dissection versus thrombosis. * Moderate to severe calcified plaque of the left ICA bulb with approximately 60% stenosis. Moderate stenosis of the left nondominant vertebral artery origin and C5 foraminal segment. Otherwise, no significant stenosis on CTA neck. * No large vessel occlusion or significant stenosis on CTA head beyond already mentioned right communicating and cavernous ICA occlusion. Right MCA and MANDO are opacified with caliber roughly equivocal to contralateral side. Findings discussed with also brought at 12:00 AM Plastic And Reconstructive Surgeon: EFRAIN Transcribe Date/Time: Apr 23 2021 11:42P Dictated by : MARIAM PIMENTEL MD This examination was interpreted and the report reviewed and electronically signed by: MARIAM PIMENTEL MD on Apr 24 2021 12:03AM EST [id number] [facility] CTA NECK W IVCONon CTA NECK W IVCON * * *Final Report* * * DATE OF EXAM: Apr 23 2021 10:36PM [facility] [place] - CTA NECK W IVCON / PROCEDURE REASON: Intracranial hemorrhage * * * * Physician Interpretation * * * * EXAMINATION: CTA NECK W IVCON, CTA HEAD W IVCON HISTORY: Intracranial hemorrhage DIZZINESS/VERTIGO TECHNIQUE: Spiral high resolution axial images were obtained through the head, neck and superior mediastinum following bolus administration of intravenous contrast for CT angiography. The data was subsequently post-processed utilizing 3D multi-planar reconstructions, 3D maximum intensity projections, and a tissue segmentation algorithm at a separate workstation under physician supervision. MQ: CTABNPlus_3 Contrast: 80 mL Omnipaque 350 IV Dose-Length Product (DLP): 715 mGy*cm CT Dose Reduction Employed: No dose reduction techniques were required COMPARISON: None. RESULT: NECK: Soft tissues: The soft tissue planes are maintained throughout. No evidence of a soft tissue mass in the neck or superior mediastinum. No significant lymphadenopathy is seen. Spine: Alignment is normal. Multilevel age-related degenerative changes which are greatest at C5-6 and C6-7 where calcified disc osteophyte complexes cause moderate spinal canal stenosis. Lung apices: The visualized lungs are clear. CT ARTERIOGRAM: Extracranial Circulation: Aortic Arch: There is a normal branching pattern from the aortic arch. There is no significant stenosis in the proximal brachiocephalic vessels. Carotid Stenosis: Right Common: No significant stenosis with scattered plaque. Right Internal Carotid Plaque: Mild to moderate plaque formation with complete occlusion just past bifurcation. Right Internal Carotid Stenosis (% by NASCET Criteria): 100 percent Left Common: No significant stenosis. Left Internal Carotid Plaque: Moderate to severe calcified plaque formation. Left Internal Carotid Stenosis (% by NASCET Criteria): Approximate 60 percent Cervical Vertebral Arteries: Patency: Moderate calcification of the left nondominant origin and foraminal C5 extracranial vertebral artery. No focal or significant stenosis of the right dominant extracranial vertebral artery. Dominance: Right Intracranial Circulation: Spot Sign Presence: Not Applicable Spot Sign Number: Not Applicable Anterior Circulation: Complete occlusion of the right cavernous and communicating ICA with opacification of the right MCA and MANDO with caliber overall similar to contralateral side. Otherwise, no large vessel occlusion or significant stenosis. No evidence of aneurysm. Left circulation. Vertebrobasilar Circulation: Scattered atherosclerotic changes with mild to moderate focal short segment stenosis of the right dominant intradural vertebral artery and somewhat overall uniform a small caliber of the basilar artery which is likely secondary to circulation. No significant superimposed short segment stenosis of the basilar artery. No filling defect of the opacified dural venous sinuses to suggest thrombus. No evidence of vascular. 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 Primary differential considerations include dissection versus thrombosis. * Moderate to severe calcified plaque of the left ICA bulb with approximately 60% stenosis. Moderate stenosis of the left nondominant vertebral artery origin and C5 foraminal segment. Otherwise, no significant stenosis on CTA neck. * No large vessel occlusion or significant stenosis on CTA head beyond already mentioned right communicating and cavernous ICA occlusion. Right MCA and MANDO are opacified with caliber roughly equivocal to contralateral side. Findings discussed with also brought at 12:00 AM Plastic And Reconstructive Surgeon: EFRAIN Transcribe Date/Time: Apr 23 2021 11:42P Dictated by : MARIAM PIMENTEL MD This examination was interpreted and the report reviewed and electronically signed by: MARIAM PIMENTEL MD on Apr 24 2021 12:03AM EST [id number] Normal [facility] Comp Metabolic Panelon 04-24 Albumin [Mass/Vol] 4.2 g/dL Normal 3.9-4.9 [facility] Comment on above: Performed By: #### C MP ####[facility] [address] [place] [address] ALP [Catalytic activity/Vol] 70 U/L Normal 38-113 [facility] Comment on above: Performed By: #### C MP ####[facility] [address] [place] [address] ALT [Catalytic activity/Vol] 23 U/L Normal 10-54 [facility] Comment on above: Performed By: #### C MP ####[facility] [address] [place] [address] Anion gap [Moles/Vol] 11 mmol/L Normal 9-18 [facility] Comment on above: Performed By: #### C MP ####[facility] [address] [place] [address] AST [Catalytic activity/Vol] 19 U/L Normal 14-40 [facility] Comment on above: Performed By: #### C MP ####[facility] [address] [place] [address] Bilirubin [Mass/Vol] 0.5 mg/dL Normal 0.2-1.3 [facility] Comment on above: Performed By: #### C MP ####[facility] [address] [place] [address] Calcium [Mass/Vol] 9.0 mg/dL Normal 8.5-10.2 [facility] Comment on above: Performed By: #### C MP ####[facility] [address] [place] [address] Chloride [Moles/Vol] 99 mmol/L Normal 97-105 [facility] Comment on above: Performed By: #### C MP ####[facility] [address] [place] [address] CO2 [Moles/Vol] 28 mmol/L Normal 22-30 [facility] Comment on above: Performed By: #### C MP ####[facility] [address] [place] [address] Creatinine [Mass/Vol] 0.89 mg/dL Normal 0.73-1.22 [facility] Comment on above: Performed By: #### C MP ####[facility] [address] [place] [address] eGFR- Amer. >60 Normal [facility] Comment on above: Performed By: #### C MP ####[facility] [address] [place] [address] eGFR-All Other Races >60 Normal [facility] Comment on above: Result Comment: eGFR (Estimated GFR) Units of measure: mL/min/1.73 meters squared eGFR is derived from the reexpressed MDRD Study equation using the following parameters: serum creatinine, age, gender and race. The creatinine assay has been calibrated to be traceable to IDMS. An eGFR <60 mL/min/1.73m2 for >3 months is consistent with chronic kidney disease. Refer to KDOQI guidelines for clinical interpretation. In patients with unstable renal function, e.g. those with acute kidney injury, the eGFR may not accurately reflect actual GFR. Performed By: #### C MP ####[facility] [address] [place] [address] Glucose [Mass/Vol] 137 mg/dL High 74-99 [facility] Comment on above: Result Comment: The Stateless Diabetes Association (ADA) provides guidance for cutoff values for fasting glucose and random glucose. The ADA defines fasting as no caloric intake for at least 8 hours. Fasting plasma glucose results between 100 to 125 mg/dL indicate increased risk for diabetes (prediabetes). Fasting plasma glucose results greater than or equal to 126 mg/dL meet the criteria for diagnosis of diabetes. In the absence of unequivocal hyperglycemia, results should be confirmed by repeat testing. In a patient with classic symptoms of hyperglycemia or hyperglycemic crisis, random plasma glucose results greater than or equal to 200 mg/dL meet the criteria for diagnosis of diabetes. Reference: Standards of Medical Care in Diabetes 2016, Stateless Diabetes Association. Diabetes Care. 2016.39(Suppl 1). Performed By: #### C MP ####[facility] [address] [place] [address] Potassium [Moles/Vol] 4.3 mmol/L Normal 3.7-5.1 [facility] Comment on above: Performed By: #### C MP ####[facility] [address] [place] [address] Protein [Mass/Vol] 6.5 g/dL Normal 6.3-8.0 [facility] Comment on above: Performed By: #### C MP ####[facility] [address] [place] [address] Sodium [Moles/Vol] 138 mmol/L Normal 136-144 [facility] Comment on above: Performed By: #### C MP ####[facility] [address] [place] [address] Urea nitrogen [Mass/Vol] 16 mg/dL Normal 9-24 [facility] Comment on above: Performed By: #### C MP ####[facility] [address] [place] [address] ED NOTEon 04-24-2021 ED NOTE HNO ID: [id number] Author: Akosua Elder RN Service: ? Author Type: Registered Nurse Type: ED Notes Filed: 04/24/2021 3:05 AM Note Text: admitting dr in room to see pt. [facility] ED NOTE HNO ID: [id number] Author: Akosua Elder RN Service: ? Author Type: Registered Nurse Type: ED Notes Filed: 04/24/2021 2:09 AM Note Text: pt and update on bed assignment. delay . is going home. pt given pillow and bed lowered for comfort. call [facility] within reach. [facility] ED NOTE HNO ID: [id number] Author: Nettie Jacobsen RN Service: ? Author Type: Registered Nurse Type: ED Notes Filed: 04/24/2021 1:24 AM Note Text: Pt report was given to Akosua AVENDANO [facility] ED NOTE HNO ID: [id number] Author: Nettie Jacobsen RN Service: ? Author Type: Registered Nurse Type: ED Notes Filed: 04/24/2021 12:04 AM Note Text: Dr Scooby is bedside [facility] LUIGI Antibody Panelon 10-04-2 021 Centromere <0.2 Normal <1.0 [facility] Comment on above: Result Comment: NEGA TIVE Negative: <1.0 AI Positive: >0.9 AI Test performed using the Multiplex Flow Immunoassay technology. Performed By: #### E NAID ####[address] [phone] Chromatin Antibody 0.2 AI Normal <1.0 [facility] Comment on above: Result Comment: NEGA TIVE Negative: <1.0 AI Positive: >0.9 AI Test performed using the Multiplex Flow Immunoassay technology. Performed By: #### E NAID ####[place] [address] [address] [place], [place] [phone] STEPHANI 1 Antibody <0.2 Normal <1.0 [facility] Comment on above: Result Comment: NEGA TIVE Negative: <1.0 AI Positive: >0.9 AI Test performed using the Multiplex Flow Immunoassay technology. Performed By: #### E NAID ####[address] [place], [place] [phone] Ribosomal WAXED BAG MACHINE OPERATOR <0.2 Normal <1.0 [facility] Comment on above: Result Comment: NEGA TIVE Negative: <1.0 AI Positive: >0.9 AI Test performed using the Multiplex Flow Immunoassay technology. Performed By: #### E NAID ####[address] [phone] WAXED BAG MACHINE OPERATOR Antibody 0.2 AI Normal <1.0 [facility] Comment on above: Result Comment: NEGA TIVE Negative: <1.0 AI Positive: >0.9 AI Test performed using the Multiplex Flow Immunoassay technology. Performed By: #### E NAID ####[place] [address] [address], [place] [phone] Scleroderma IgG Ab <0.2 Normal <1.0 [facility] Comment on above: Result Comment: NEGA TIVE Negative: <1.0 AI Positive: >0.9 AI Test performed using the Multiplex Flow Immunoassay technology. Performed By: #### E NAID ####[address] [phone] Sm Antibody <0.2 Normal <1.0 [facility] Comment on above: Result Comment: NEGA TIVE Negative: <1.0 AI Positive: >0.9 AI Test performed using the Multiplex Flow Immunoassay technology. Performed By: #### E NAID ####[place] [phone] SSA Antibody <0.2 Normal <1.0 [facility] Comment on above: Result Comment: NEGA TIVE Negative: <1.0 AI Positive: >0.9 AI Test performed using the Multiplex Flow Immunoassay technology. Performed By: #### E NAID ####[address] [phone] SSB Antibody <0.2 Normal <1.0 [facility] Comment on above: Result Comment: NEGA TIVE Negative: <1.0 AI Positive: >0.9 AI Test performed using the Multiplex Flow Immunoassay technology. Performed By: #### E NAID ####[place] [phone] Expedited [id number] 04-24-20 SARS-CoV-2 (COVID-19) RNA MARYLU+probe Ql (Unsp spec) UPPER RESPIRATORY TRACT SWAB Normal [facility] Comment on above: Performed By: #### E XCOVD ####[address] SARS-CoV-2 (COVID-19) RNA MARYLU+probe Ql (Unsp spec) Negative for COVID19 (SARS CoV2) by RT-PCR or equivalent method. Normal Negative for COVID19 (SARS CoV2) by RT-PCR or equivalent method. [facility] Comment on above: Result Comment: This test has been authorized by FDA under an Emergency Use Authorization (EUA). Performed By: #### E XCOVD ####[address] Factor VIII:C Assayon 2020 Factor VIII:C Assay 249 % High 50-173 [facility] Comment on above: Result Comment: The specimen was treated with heparinase to remove heparin activity from the plasma. The factor VIII clottable activity level is elevated This can be observed during the acute phase response. Persistent elevation of factor VIII, however, has been shown to be a risk factor for venous thrombosis. Suggest rechecking the factor VIII level in 1-2 months. Performed By: #### F VIIIC, PRCFUN, AT3ASY, PRSCLT, APC, STACLT ####[facility] [address] [place] [address] [phone]#### HYPER ####[facility] [address] [place], [place] [phone] [phone] HISTORY PHYSICALon HISTORY PHYSICAL HNO ID: [id number] Author: Gina Lopez MD Service: Hospital Medicine Author Type: Physician Type: HANDP Filed: 04/24/2021 5:47 AM Note Text: DEPARTMENT OF HOSPITAL MEDICINE HISTORY AND PHYSICAL EXAM SERVICE DATE: 04/24/2021 Code Status: Not on file SERVICE TIME: 3:50 AM Primary Care Physician: Claude Medina APRN.[facility] NIGHT AND WEEKEND COVERAGE: [place] COVERAGE: Days: [phone], please page attending physician. Nights: [phone], please page [facility] Night coverage pager [phone]. Subjective CHIEF COMPLAINT: Dizziness HPI: This is a 75 year old male with a history of hypertension, obesity, previous smoker, hard of hearing right ear. Patient was in apparent normal state of health until yesterday afternoon @1 PM when he developed dizziness which he describes as the room spinning around him including everything in the room. The dizziness persisted and subsequently he started having nausea with clear-colored emesis multiple times. He denies any headache, no change in vision, speech problem, gait problems, focal weakness, paresthesia, abdominal pain, chest pain, shortness of breath, fever no chills. He denies any URI symptoms recently, no tinnitus. No prior symptoms nor history of migraines The emergency room, blood pressure 152/72, pulse 76, temperature 97.4, respiratory rate 18. Labs with leukocytosis 14.54, hyperglycemia 225. COVID-19 negative. Troponin less than 0.01 CT brain no acute process. 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 Primary differential considerations includes dissection versus thrombosis Moderate to severe calcified plaque of the left ICA bulb with approximately 60% stenosis. Moderate stenosis of the left nondominant vertebral artery origin and C5 foraminal segment. EKG sinus rhythm with marked sinus arrhythmia. Chronic incomplete right bundle branch block. QTc 436. He received 1 L of normal saline, meclizine 25 mg x 1 and Ativan 1 mg x1 before admission. PAST MEDICAL HISTORY Diagnosis Date - Hypertension PAST SURGICAL HISTORY Procedure Laterality Date - APPENDECTOMY HX No family history on file. Social History Tobacco Use - Smoking status: Former Smoker - Smokeless tobacco: Never Used Substance Use Topics - Alcohol use: No - Drug use: No PRIOR TO ADMISSION MEDICATIONS: (Not in a hospital admission) ALLERGIES No Known Allergies REVIEW OF SYSTEM: PAIN ASSESSMENT: Negative for pain, history of chronic pain, or current treatment for a chronic pain condition. GENERAL: No weight loss, malaise or fevers HEENT: Negative for frequent or significant headaches, No changes in hearing or vision, no nose bleeds or other nasal problems NECK: Negative for lumps, goiter, pain and significant neck swelling RESPIRATORY: Negative for cough, hemoptysis, wheezing, COPD, dyspnea or shortness of breath CARDIOVASCULAR: Positive for hypertension. Negative for chest pain, leg swelling, CHF or palpitations GI: No nausea, vomiting, or diarrhea, No heartburn or reflux symptoms and Constipation : No history of dysuria, frequency or incontinence MUSCULOSKELETAL: Negative for joint pain or swelling, back pain or muscle pain SKIN: Negative for lesions, rash, and itching PSYCH: Negative for sleep disturbance, mood disorder and recent psychosocial stressors HEMATOLOGY/LYMPHOLOGY: Negative for prolonged bleeding, bruising easily or swollen nodes ENDOCRINE: Negative for cold or heat intolerance, polyuria, polydipsia and goiter NEURO: No history of headaches, syncope, paralysis, seizures or tremors Objective PHYSICAL EXAM: BP 121/56 Pulse 71 Temp (Src) 97.4 (Oral) Resp 17 Wt 223 lb 4.8 oz (101.3kg) SpO2 93% O2 Therapy: Room Air Physical Exam Performed: GENERAL: Alert, no distress, cooperative, Obese LUNGS: Lungs clear to auscultation, no wheezes no rhonchi CARDIAC: Normal S1 and S2; no rubs, murmurs, or gallops ABDOMEN: Abdomen soft, non-tender, BS normal, EXTREMITIES: No edema nor calf tenderness NEURO: Awake, alert, oriented x3. Power 5/5 all limbs. Sensation grossly intact. Lzffib-cu-lzld test and lpxk-vo-mqnw test within normal range. Gait not assessed. Not count fingers on his peripheral vision II: Visual eddy intact. PERRLA. III, IV, : EOMI. ? Ptosis right eye ? Chronic . None on the left eye. Normal pursuits. V: Symmetric facial sensation to touch VII: Mild loss of right nasolabial fold VIII: Hearing right ear. + nystagmus. IX, X: Symmetric palatal rise. XI: Symmetric shoulder shrug. XII: Tongue midline with symmetric movements. Lines, Drains, and Airways Line Peripheral 04/23/212112 Admission to Hospital Short Left Hand 22 Gauge <1 day Peripheral 04/23/212119 Short Right Arm 20 Gauge <1 day Reviewed lines and needs to be continued: REASONS: Intravenous fluids, Telemetry and Electrolyte replacement (more content not included)... Normal [facility] Hemoglobin A1con 04-24-2021 Glucose [Mass/Vol] 157 mg/dL Normal [facility] Comment on above: Result Comment: eAG: (Estimated average glucose) is a calculated value from HgbA1c and is corporate sales representative of the average blood glucose level in the last 2-3 month period. Performed By: #### H SCRP, PROCAL, HBA1C ####[facility] [address] [place], [place] [phone]#### PT, CBCDIF, PTT, CK ####[facility] [address]3769 [phone] HbA1c (Bld) [Mass fraction] 7.1 % High 4.3-5.6 [facility] Comment on above: Result Comment: Amer ican Diabetes Association guidelines indicate that patients with HgbA1c in the range 5.7-6.4% are at increased risk for development of diabetes, and intervention by lifestyle modification may be beneficial. HgbA1c greater or equal to 6.5% is considered diagnostic of diabetes. Performed By: #### H SCRP, PROCAL, HBA1C ####[place] [address] [address] AveCA[address] [place] [phone]#### PT, CBCDIF, PTT, CK ####[address] Neuon 1 Hex Phase Confirm 37.9 sec Normal 34.2-47.9 [facility] Comment on above: Performed By: #### F VIIIC, PRCFUN, AT3ASY, PRSCLT, APC, STACLT ####[place] [address] [address] AveCL[address] [place] [phone]#### HYPER ####[address] [place], [place] [address]d [phone] Hex Phase Delta 0.6 delta sec Normal <7.1 [facility] Comment on above: Performed By: #### F VIIIC, PRCFUN, AT3ASY, PRSCLT, APC, STACLT ####[place] [phone]#### HYPER ####[address] [address] [address] [phone] Hex Phase Screen 38.5 sec Normal 34.0-51.8 [facility] Comment on above: Performed By: #### F VIIIC, PRCFUN, AT3ASY, PRSCLT, APC, STACLT ####[address] Av[place] [phone]#### HYPER ####[address] [address] [address] [phone] Hypercoag Diag Pnlon 021 aPTT Coag (Bld) [Time] 25.6 s Normal 23.0-32.4 [facility] Comment on above: Result Comment: Unfr actionated Heparin Therapeutic Ranges: Standard Heparin Nomogram: 53 to 78 seconds (anti-Xa level of 0.3 to 0.7 U/ml) Low Dose/ACS Nomogram: 49 to 67 seconds (anti-Xa level of 0.2 to 0.5 U/ml) Stroke Treatment Nomogram: 49 to 67 seconds (anti-Xa level of 0.2 to 0.5 U/ml) Note: The APTT therapeutic range has been determined for the current lot of laboratory APTT reagent in use throughout the [facility]. Performed By: #### F VIIIC, PRCFUN, AT3ASY, PRSCLT, APC, STACLT ####[place] [phone]#### HYPER ####[place] [address] [phone] aPTT Coag (Bld) [Time] 28.0 s Normal 24.0-35.1 [facility] Comment on above: Performed By: #### F VIIIC, PRCFUN, AT3ASY, PRSCLT, APC, STACLT ####[address] [place] [phone]#### HYPER ####[place] [address] [place] [phone] CRP [Mass/Vol] mg/L Normal <0.9 [facility] Comment on above: Performed By: #### F VIIIC, PRCFUN, AT3ASY, PRSCLT, APC, STACLT ####[place] [address] [address] [place] [phone]#### HYPER ####[place] [phone] [address] [address] [place] [phone] Fibrinogen 270 mg/dL Normal 200-400 [facility] Comment on above: Performed By: #### F VIIIC, PRCFUN, AT3ASY, PRSCLT, APC, STACLT ####[address] AvJeff[address] [place] [address]#### HYPER ####[place] [address] Homocysteine 5.8 umol/L Normal <15.1 [facility] Comment on above: Performed By: #### F VIIIC, PRCFUN, AT3ASY, PRSCLT, APC, STACLT ####[place] [address]#### HYPER ####[place] [address] IgA Cardiolipin Ab. <9.0 Normal <12.0 [facility] Comment on above: Result Comment: Nega tive: <12.0 APL Indeterminate: 12.0-20.0 APL Positive: >20.0 APL The following results were obtained with an [employer] QUANTA Lite MANDO IgA III CASTRO. Cardiolipin IgA values obtained with different manufacturers' assay methods may not be used interchangeably. The magnitude of the reported IgA levels cannot be correlated to an endpoint titer. Performed By: #### F VIIIC, PRCFUN, AT3ASY, PRSCLT, APC, STACLT ####[place] [address]#### HYPER ####[place] [address] [place] [address] IgG Cardiolipin Ab. <9.0 Normal <15.0 [facility] Comment on above: Result Comment: Nega tive: <15.0 GPL Indeterminate: 15.0-20.0 GPL Positive: >20.0 GP The following results were obtained with the [employer] QUANTA Lite MANDO IgG III CASTRO. Cardiolipin IgG values obtained with the different manufacturers' assay methods may not be used interchangeably. The magnitude of the reported IgG levels cannot be correlated to an endpoint titer. Performed By: #### F VIIIC, PRCFUN, AT3ASY, PRSCLT, APC, STACLT ####[address] AvZachary [place] [phone]#### HYPER ####[place] [address] IgM Cardiolipin Ab. <9.0 Normal <12.5 [facility] Comment on above: Result Comment: Nega tive: <12.5 MP Indeterminate: 12.5-20.0 MPL Positive: >20.0 MPL The following results were obtained with the [employer] QUANTA Lite MANDO IgM III CASTRO. Cardiolipin IgM values obtained with different manufacturers' assay methods may not be used interchangeably. The magnitude of the reported IgM levels cannot be correlated to an endpoint titer. Performed By: #### F VIIIC, PRCFUN, AT3ASY, PRSCLT, APC, STACLT ####[place] [phone]#### HYPER ####[place] [phone] Interpretation (NOTE) Normal [facility] Comment on above: Result Comment: Perf orming Pathologist: Magda Paredes Interpretation: Abnormal - see comment below. SIGNIFICANT FINDINGS: 1. Drug Effect: enoxaparin 2. Factor VIII clottable activity level: ELEVATED A laboratory evaluation for congenital and acquired risk factors for thrombophilia was performed. Both the PT and APTT results are normal. The anti-Xa screen was positive with a normal thrombin time and the results show adequate neutralization after heparinase. These results are consistent with the medication record indicating enoxaparin therapy. LUPUS ANTICOAGULANT AND ANTIPHOSPHOLIPID ANTIBODY TESTING: The normal hexagonal phase phospholipid neutralization and APTT assays make a lupus anticoagulant unlikely. The IgG, IgM and IgA anticardiolipin antibody titers were all negative. PROTEIN STUDIES: The factor VIII clottable activity level is elevated with normal levels of fibrinogen and C-reactive protein. A persistent elevation of factor VIII has been associated with an increased risk of venous thrombosis. Suggest rechecking the factor VIII in 8-12 weeks to determine whether the factor VIII is still elevated. The levels of protein C, protein S and antithrombin are normal. HOMOCYSTEINE: The homocysteine level is normal. GENOTYPING STUDIES: The activated protein C resistance ratio (APC-R) is normal. The Factor V Leiden mutation, a c.1601G>A variant (legacy name R506Q) in the Factor V (F5) gene, is unlikely. The patient is negative for the c.*97G>A variant (legacy name 06459T>A) in the 3' untranslated region of the Factor II (F2) prothrombin gene. This result is not associated with an increased risk of thromboembolic disease. Please refer to the interpretation provided with the PT Gene Mutation result for further diagnostic and prognostic information. Please correlate these laboratory results with clinical findings and medication history. THE FOLLOWING TESTS WERE ADDED AND ARE REPORTED SEPARATELY: Protein C functional, Antithrombin functional, protein S clottable, hexagonal phase phospholipid neutralization, factor VIII, activated protein C resistance. Performed By: #### F VIIIC, PRCFUN, AT3ASY, PRSCLT, APC, STACLT ####[address] [phone]#### HYPER ####[place] [phone] [phone] PT Gene Report See Below Normal [facility] Comment on above: Result Comment: (NOT E) Prothrombin Gene Mutation Laboratory Accession Number: [id number] Result: NORMAL Interpretation: The DNA sample is negative for the c.*97G>A variant (legacy name 13860T>A) in the 3' untranslated region of the Factor II (F2) gene. This result is not associated with an increased risk of thromboembolic disease. Thromboembolic disease is a multifactorial disorder and other causes are not excluded by this result. Methodology: Isolated Genomic DNA from the patient's blood specimen is evaluated for the c*97G>A ([id number]) variant of the F2 gene [RefSeq [id number];GRCh38/hg38] by multiplex polymerase chain reaction (PCR) followed by melting curve analysis. Limitations: This assay is designed to detect the c.*97G>A (82202J>A) variant in the F2 gene. Uncommon variants or single nucleotide polymorphisms may affect binding of probes and may rarely result in false negative, false positive or indeterminate results. This assay does not detect other disease-associated rare variants in F2 or other causes of thromboembolic disease. Disclaimer: This test was developed and its performance characteristics determined by [facility]'s [facility] [place] ([facility]). It has not been cleared or approved by the FDA. [facility] is regulated under CLIA as certified to perform high- complexity testing. This test is used for clinical purposes. It should not be regarded as investigational or for research. References: 1) Inheritied Thrombophilias in . ACOG Practice Bulletin. No. 197. [employer]eless College of Obstetricians and Gynecologists. Obsete Gynecol 2018;132:e18-34. 2) Meenu SR, Maribell FR, Trevor PH, and Milagros HAIRSTON. A common genetic variation in the 3'-untranslated region of the prothrombin gene is associated with elevated plasma prothrombin levels and an increase in venous thrombosis. Blood 88:3698-703, 1995. 3) Carol I, Anderson V, Reece C, Shayne K. Prothrombin 01042K>T: 16 new cases, association with the 71048Z>G polymorphism, and literature review. J Thromb Haemost. 2009;9:1585-7. As reviewed by Robert Waterman, PhD, HCLD Performed By: #### F VIIIC, PRCFUN, AT3ASY, PRSCLT, APC, STACLT ####[facility] [address] [place], [place] [phone]#### HYPER ####[address] [place], [place] [phone] PT INR 1.1 Normal 0.9-1.3 [facility] Comment on above: Result Comment: Brianna min K Antagonist (VKA) Therapeutic Range: INR 2 to 3 (Target INR of 2.5) Note: For patients treated with VKA drugs, such as warfarin, the [employer]eless College of [employer] Physicians 2012 Guideline recommends a therapeutic INR range of 2 to 3 (target INR of 2.5). This recommendation includes high-risk patients with antiphospholipid syndrome with previous arterial or venous thromboembolism, current-generation mechanical or bioprosthetic aortic heart valve replacement. Note: Patients with mechanical aortic valve replacement and additional risk factors for thromboembolic events (atrial fibrillation, previous thromboembolism, LV dysfunction, hypercoagulable conditions) or an older generation mechanical AVR (i.e., ball in-Cage) or any mechanical MVR should have a INR therapeutic range of 2.5 to 3.5 (target INR of 3). Marie THOMAS, et al. Chest 2012, 141:7S-47S Yumiko RA, et al. JAC 2017, 70: 252-289 Performed By: #### F VIIIC, PRCFUN, AT3ASY, PRSCLT, APC, STACLT ####[place] [phone]#### HYPER ####[place] [phone] PT Sec 11.4 sec Normal 9.7-13.0 [facility] Comment on above: Performed By: #### F VIIIC, PRCFUN, AT3ASY, PRSCLT, APC, STACLT ####[address] [phone]#### HYPER ####[address] [phone] Thrombin Time 18.0 sec Normal <18.6 [facility] Comment on above: Performed By: #### F VIIIC, PRCFUN, AT3ASY, PRSCLT, APC, STACLT ####[address] [phone]#### HYPER ####[facility] [address] [place] [phone] [phone] MRI BRAIN WO IVCONon 021 MRI BRAIN WO IVCON * * *Final Report* * * DATE OF EXAM: Apr 24 2021 12:34PM [facility] 0294 - MRI BRAIN WO IVCON / PROCEDURE REASON: TIA, initial exam * * * * Physician Interpretation * * * * EXAMINATION: MRI BRAIN WO IVCON CLINICAL HISTORY: Transient ischemic attacks, vertigo. TECHNIQUE: Routine noncontrast MRI protocol including diffusion images. MQ: [id number] COMPARISON: Prior CT/CT angiography dated 04/23/2021. RESULT: Acute Change: Small focus of restricted diffusion measuring 8 mm seen involving the left posterior/inferior frontal lobe, compatible with acute infarct. Hemorrhage: No evidence of prior parenchymal hemorrhage on the gradient echo images. Mass Lesion/ Mass Effect: Small incidental 5 mm lipoma along the right tentorium seen. No significant mass effect or midline shift. Chronic Change: Scattered small foci of increased T2 and FLAIR signal are present in the supratentorial white matter which is a nonspecific finding but likely represents mild chronic microvascular ischemia. Parenchyma: Age-appropriate generalized brain parenchymal volume loss is seen. The brain parenchyma is otherwise within normal limits of signal intensity and morphology. Ventricles: Normal caliber and morphology. Skull Base: Hypothalamic and pituitary region are grossly normal. Craniocervical junction is normal. No significant marrow replacement process. Vasculature: Abnormal flow void of the right internal carotid artery up to its distal supraclinoid segment noted, compatible with occlusion as seen on prior CTA dated 04/23/2021. Other: The visualized paranasal sinuses and mastoid air cells are clear. The orbits and extracranial soft tissues are unremarkable. IMPRESSION: SMALL 8 MM FOCUS OF RESTRICTED DIFFUSION INVOLVING THE LEFT POSTERIOR/INFERIOR FRONTAL LOBE, COMPATIBLE WITH ACUTE INFARCT. NONSPECIFIC SMALL FOCI OF HIGH T2 SIGNAL INTENSITY SEEN INVOLVING THE WHITE MATTER, LIKELY REPRESENTING MILD CHRONIC MICROVASCULAR ISCHEMIC CHANGES. ABNORMAL FLOW VOID OF THE RIGHT INTERNAL CAROTID ARTERY, COMPATIBLE WITH OCCLUSION SEEN ON PRIOR CTA DATED 04/23/2021. OTHERWISE, UNREMARKABLE MRI BRAIN WITHOUT CONTRAST. Plastic And Reconstructive Surgeon: EFRAIN Transcribe Date/Time: Apr 24 2021 12:36P Dictated by : ECHO TONY MD This examination was interpreted and the report reviewed and electronically signed by: ECHO TONY MD on Apr 24 2021 12:45PM EST [id number] Normal [facility] Procalcitoninon 04-24-2021 Procalcitonin 0.08 ng/mL Normal <0.09 [facility] Comment on above: Result Comment: For a guided interpretation of test results, please visit the Change in Procalcitonin Calculator, [email or web address]. Performed By: #### H SCRP, PROCAL, HBA1C ####[place] [phone]#### PT, CBCDIF, PTT, CK ####[place] [address] Protein C Functionalon 04-24 Protein C Functional 107 % Normal 76-147 [facility] Comment on above: Performed By: #### F VIIIC, PRCFUN, AT3ASY, PRSCLT, APC, STACLT ####[place] [phone]#### HYPER ####[place] [phone] Protein S Clottableon 2020 Protein S Clottable 104 % Normal 59-152 [facility] Comment on above: Result Comment: The specimen was treated with heparinase to remove heparin activity from the plasma. Performed By: #### F VIIIC, PRCFUN, AT3ASY, PRSCLT, APC, STACLT ####[address] [phone]#### HYPER ####[place] [phone] [phone] Protimeon 04-24-2021 PT INR 1.0 Normal 0.9-1.3 [facility] Comment on above: Result Comment: Brianna min K Antagonist (VKA) Therapeutic Range: INR 2 to 3 (Target INR of 2.5) Note: For patients treated with VKA drugs, such as warfarin, the [employer]icians 2012 Guideline recommends a therapeutic INR range of 2 to 3 (target INR of 2.5). This recommendation includes high-risk patients with antiphospholipid syndrome with previous arterial or venous thromboembolism, current-generation mechanical or bioprosthetic aortic heart valve replacement. Note: Patients with mechanical aortic valve replacement and additional risk factors for thromboembolic events (atrial fibrillation, previous thromboembolism, LV dysfunction, hypercoagulable conditions) or an older generation mechanical AVR (i.e., ball in-Cage) or any mechanical MVR should have a INR therapeutic range of 2.5 to 3.5 (target INR of 3). Marie GH, et al. Chest 2012, 141:7S-47S Yumiko RA, et al. [facility] 2017, 70: 252-289 Performed By: #### H SCRP, PROCAL, HBA1C ####[place] [phone]#### PT, CBCDIF, PTT, CK ####[place] [phone] PT Sec 10.9 sec Normal 9.7-13.0 [facility] Comment on above: Performed By: #### H SCRP, PROCAL, HBA1C ####[address] [phone]#### PT, CBCDIF, PTT, CK ####[place] [address] Ultra-sensitive CRPon 2020 UltraSens C-ReacProt 1.4 mg/L Normal <3.1 [facility] Comment on above: Result Comment: (NOT E) hsCRP < 1.0 mg/L, relative risk is low hsCRP 1.0-3.0 mg/L, relative risk is average hsCRP > 3.0 mg/L, relative risk is high Reference: Go TA, Maye GA, Faraz RW, et al. Markers of Inflammation and Cardiovascular Disease. Application to Clinical and Public Health Practice. A Statement for Healthcare Professionals From the Centers for Disease Control and Prevention and the [employer]eless Heart Association. Circulation 2003;107:499-511. Performed By: #### H SCRP, PROCAL, HBA1C ####[facility] [address] [place], [place] [phone]#### PT, CBCDIF, PTT, CK ####[facility] [address] [place] [address] Urinalysison 04-24-2021 Bilirubin, Urine Negative Normal Negative [facility] Comment on above: Performed By: #### U AMIC, UA ####[facility] [address] [place] [address] Clarity (U) Clear Normal Clear [facility] Comment on above: Performed By: #### U AMIC, UA ####[facility] [address] [place] [address] Color (U) Yellow Normal Yellow [facility] Comment on above: Performed By: #### U AMIC, UA ####[facility] [address] [place] [address] Glucose Ql (U) Trace Critically abnormal Negative [facility] Comment on above: Performed By: #### U AMIC, UA ####[facility] [address] [place] [address] Hemoglobin/Blood,Ur Negative Normal Negative [facility] Comment on above: Performed By: #### U AMIC, UA ####[facility] [address] [place] [address] Ketones Ql (U) Trace Critically abnormal Negative [facility] Comment on above: Performed By: #### U AMIC, UA ####[facility] [address] [place] [address] Leukest Negative Normal Negative [facility] Comment on above: Performed By: #### U AMIC, UA ####[facility] [address] [place] [address] Nitrite Ql (U) Negative Normal Negative [facility] Comment on above: Performed By: #### U AMIC, UA ####[facility] [address] [place] [address] pH (U) 6.0 [pH] Normal 5.0-8.0 [facility] Comment on above: Performed By: #### U AMIC, UA ####[facility] [address] [place] [address] Protein, Urine 2+ Critically abnormal Negative [facility] Comment on above: Performed By: #### U AMIC, UA ####[facility] [address] [place] [address] Specific Cable, Ur >=1.030 Normal 1.005-1.030 [facility] Comment on above: Performed By: #### U AMIC, UA ####[facility] [address] [place] [address] Urobilinogen Qn (U) 0.2 {Bao'U}/dL Normal 0.2-1.0 [facility] Comment on above: Performed By: #### U AMIC, UA ####[facility] [address] [place] [address] Urine Microscopic (FOR LAB U SE ONLY)on 04-24-2021 Bacteria Occasional Critically abnormal 0 [facility] Comment on above: Performed By: #### U AMIC, UA ####[facility] [address] [place] [address] Cast SEE COMMENT Normal 0 [facility] Comment on above: Result Comment: 0 Performed By: #### U AMIC, UA ####[facility] [address] [place] [address] Crystals LM Nom (Urine sed) SEE COMMENT Critically abnormal 0 [facility] Comment on above: Result Comment: Few Amorphous Performed By: #### U AMIC, UA ####[facility] [address] [place] [address] Epithelial cells LM Ql (Urine sed) SEE COMMENT Normal [facility] Comment on above: Result Comment: 0-5 Squamous Epithelial Cells Performed By: #### U AMIC, UA ####[facility] [address] [place] [address] RBC 0-3 Normal 0-3 [facility] Comment on above: Performed By: #### U AMIC, UA ####[facility] Wthaowhavz8933 [address] WBC 0-5 Normal 0-5 [facility] Comment on above: Performed By: #### U AMIC, UA ####[facility] [address] [place] [address] ALLIED HEALTHon 04-23-2021 ALLIED HEALTH HNO ID: [id number] Author: DODIE Neely Service: Radiology Author Type: Clinical Hairspring Assembler Type: Allied Health Filed: 04/23/2021 9:50 PM Note Text: Radiology Service Progress Note PATIENT NAME: Kamar Fountain DATE OF SERVICE: April 23, 2021 TIME: 9:50 PM PATIENT IDENTITY VERIFICATION COMPLETED USING TWO (2) IDENTIFIERS: Name and Date of confirmed by patient verbally and Name and Date of confirmed by identification band. FALL SCREENING: Has the patient had 2 falls in the last year or 1 fall with injury or currently using an Ambulatory Assistive Device (Walker, Cane, Wheelchair, Crutches, etc.)? Emergency Room Patient: Screened in ED PATIENT GENDER DATA: Male PATIENT RELEVANT IMPLANT DATA REVIEWED: Not Applicable RADIOLOGY DEPARTMENT: CT; Exam(s) Completed: Brain PERIPHERAL IV DATA: Not applicable SIGNED BY: DODIE Neely April 23, 2021 9:50 PM Normal [facility] CBCon 04-23-2021 Absolute nRBC <0.01 Normal <0.01 [facility] Comment on above: Performed By: #### C MP, MG1, CBC ####[facility] K[address]yhx0588 [address] Erythrocyte distribution width (RBC) [Ratio] 12.6 % Normal 11.5-15.0 [facility] Comment on above: Performed By: #### C MP, MG1, CBC ####[facility] Nkkosnkhxx6198 [address] Hematocrit (Bld) [Volume fraction] 47.6 % Normal 39.0-51.0 [facility] Comment on above: Performed By: #### C MP, MG1, CBC ####[facility] [address] [place] [address] Hemoglobin (Bld) [Mass/Vol] 16.3 g/dL Normal 13.0-17.0 [facility] Comment on above: Performed By: #### C MP, MG1, CBC ####[facility] [address] [place] [address] MCH 30.3 pG Normal 26.0-34.0 [facility] Comment on above: Performed By: #### C MP, MG1, CBC ####[facility] [address] [place] [address] MCHC (RBC) [Mass/Vol] 34.2 g/dL Normal 30.5-36.0 [facility] Comment on above: Performed By: #### C MP, MG1, CBC ####[facility] [address] [place] [address] MCV (RBC) [Entitic vol] 88.5 fL Normal 80.0-100.0 [facility] Comment on above: Performed By: #### C MP, MG1, CBC ####[facility] [address] [place] [address] Platelet mean volume (Bld) [Entitic vol] 11.2 fL Normal 9.0-12.7 [facility] Comment on above: Performed By: #### C MP, MG1, CBC ####[facility] [address] [place] [address] Platelets (Bld) [#/Vol] 242 10*3/uL Normal 150-400 [facility] Comment on above: Performed By: #### C MP, MG1, CBC ####[facility] [address] [place] [address] RBC (Bld) [#/Vol] 5.38 10*6/uL Normal 4.20-6.00 [facility] Comment on above: Performed By: #### C MP, MG1, CBC ####[facility] [address] [place] [address] WBC (Bld) [#/Vol] 14.54 10*3/uL High 3.70-11.00 [facility] Comment on above: Performed By: #### C MP, MG1, CBC ####[facility] [address] [place] [phone] CT BRAIN WO IVCONon 04-23-20 CT BRAIN WO IVCON * * *Final Report* * * DATE OF EXAM: Apr 23 2021 9:50PM [facility] - CT BRAIN WO IVCON / PROCEDURE REASON: Ataxia, stroke suspected * * * * Physician Interpretation * * * * EXAMINATION: CT BRAIN WO IVCON CLINICAL HISTORY: Ataxia, stroke suspected TECHNIQUE: Serial axial images without IV contrast were obtained from the vertex to the foramen magnum. MQ: CTBWO_[id number] CT Radiation dose: Integrated Dose-Length Product (DLP) for this visit = 744 mGy*cm CT Dose Reduction Employed: No dose reduction techniques were required COMPARISON: None. RESULT: Post-operative change: None. Acute change: No evidence of an acute infarct or other acute parenchymal process. The insular ribbons and vilchis-white matter differentiation are maintained. Hemorrhage: No evidence of acute intracranial hemorrhage. ECASS hemorrhagic transformation score: Not Applicable Mass Lesion / Mass Effect: There is no evidence of an intracranial mass or extraaxial fluid collection. No significant mass effect. 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 Parenchyma: There is no significant volume loss. The brain parenchyma is otherwise within normal limits for age. Ventricles: The ventricles are within normal limits of size and configuration for age. Paranasal sinuses and skull base: The visualized paranasal sinuses are grossly clear. The skull base and imaged soft tissues are unremarkable. Notch Grinder (topogram) images: No additional findings. IMPRESSION: No acute intracranial process identified. Plastic And Reconstructive Surgeon: PSCB Transcribe Date/Time: Apr 23 2021 9:51P Dictated by : EDEN DENNIS MD This examination was interpreted and the report reviewed and electronically signed by: EDEN DENNIS MD on Apr 23 2021 9:55PM EST [id number] Normal [facility] Comp Metabolic Panelon 04-23 Albumin [Mass/Vol] 4.7 g/dL Normal 3.9-4.9 [facility] Comment on above: Performed By: #### C MP, MG1, CBC ####[facility] [address] [place] [address] ALP [Catalytic activity/Vol] 80 U/L Normal 38-113 [facility] Comment on above: Performed By: #### C MP, MG1, CBC ####[facility] [address] [place] [address] ALT [Catalytic activity/Vol] 29 U/L Normal 10-54 [facility] Comment on above: Performed By: #### C MP, MG1, CBC ####[facility] [address] [place] [address] Anion gap [Moles/Vol] 14 mmol/L Normal 9-18 [facility] Comment on above: Performed By: #### C MP, MG1, CBC ####[facility] [address] [place] [address] AST [Catalytic activity/Vol] 22 U/L Normal 14-40 [facility] Comment on above: Performed By: #### C MP, MG1, CBC ####[facility] [address] [place] [address] Bilirubin [Mass/Vol] 0.5 mg/dL Normal 0.2-1.3 [facility] Comment on above: Performed By: #### C MUSA, MG1, CBC ####[facility] [address] [place] [address] Calcium [Mass/Vol] 9.3 mg/dL Normal 8.5-10.2 [facility] Comment on above: Performed By: #### C MP, MG1, CBC ####[facility] [address] [place] [address] Chloride [Moles/Vol] 96 mmol/L Low 97-105 [facility] Comment on above: Performed By: #### C MP, MG1, CBC ####[facility] [address] [place] [address] CO2 [Moles/Vol] 27 mmol/L Normal 22-30 [facility] Comment on above: Performed By: #### C MP, MG1, CBC ####[facility] [address] [place] [address] Creatinine [Mass/Vol] 0.79 mg/dL Normal 0.73-1.22 [facility] Comment on above: Performed By: #### C MP, MG1, CBC ####[facility] Z[address]vscli4342 [address]721[address] eGFR- Amer. >60 Normal [facility] Comment on above: Performed By: #### C MP, MG1, CBC ####[facility] P[address]walqxlt6835 [address] eGFR-All Other Races >60 Normal [facility] Comment on above: Result Comment: eGFR (Estimated GFR) Units of measure: mL/min/1.73 meters squared eGFR is derived from the reexpressed MDRD Study equation using the following parameters: serum creatinine, age, gender and race. The creatinine assay has been calibrated to be traceable to IDMS. An eGFR <60 mL/min/1.73m2 for >3 months is consistent with chronic kidney disease. Refer to KDOQI guidelines for clinical interpretation. In patients with unstable renal function, e.g. those with acute kidney injury, the eGFR may not accurately reflect actual GFR. Performed By: #### C MP, MG1, CBC ####[facility] [address]7211 [address]21[address] Glucose [Mass/Vol] 225 mg/dL High 74-99 [facility] Comment on above: Result Comment: The [employer]eless Diabetes Association (ADA) provides guidance for cutoff values for fasting glucose and random glucose. The ADA defines fasting as no caloric intake for at least 8 hours. Fasting plasma glucose results between 100 to 125 mg/dL indicate increased risk for diabetes (prediabetes). Fasting plasma glucose results greater than or equal to 126 mg/dL meet the criteria for diagnosis of diabetes. In the absence of unequivocal hyperglycemia, results should be confirmed by repeat testing. In a patient with classic symptoms of hyperglycemia or hyperglycemic crisis, random plasma glucose results greater than or equal to 200 mg/dL meet the criteria for diagnosis of diabetes. Reference: Standards of Medical Care in Diabetes 2016, Stateless Diabetes Association. Diabetes Care. 2016.39(Suppl 1). Performed By: #### C MP, MG1, CBC ####[facility] [address]q8737 [address]21[address] Potassium [Moles/Vol] 4.3 mmol/L Normal 3.7-5.1 [facility] Comment on above: Performed By: #### C MP, MG1, CBC ####[facility] [address] [place] [address] Protein [Mass/Vol] 7.2 g/dL Normal 6.3-8.0 [facility] Comment on above: Performed By: #### C MP, MG1, CBC ####[facility] [address] [place] [address] Sodium [Moles/Vol] 137 mmol/L Normal 136-144 [facility] Comment on above: Performed By: #### C MP, MG1, CBC ####[facility] [address] [place] [address] Urea nitrogen [Mass/Vol] 15 mg/dL Normal 9-24 [facility] Comment on above: Performed By: #### C MP, MG1, CBC ####[facility] [address] [place] [address] ED NOTEon 04-23-2021 ED NOTE HNO ID: [id number] Author: Carmina Arteaga RN Service: Nursing Author Type: Registered Nurse Type: ED Notes Filed: 04/23/2021 9:14 PM Note Text: Patient presents to ER with LST after vomiting many times since 1300. He was given zofran 8mg ivp en route, no relief. He states light sensitivity and dizziness. Placed on con't monitoring. Normal [facility] ED NOTE HNO ID: [id number] Author: Hay Pimentel RN Service: ? Author Type: Registered Nurse Type: ED Notes Filed: 04/23/2021 9:08 PM Note Text: Bed: ED-13 Expected date: 04/23/21 Expected time: 9:08 PM Means of arrival: [facility] Comments: LST Normal [facility] ED PROV NOTEon 04-23-2021 ED PROV NOTE HNO ID: [id number] Author: Erickson Almodovar MD Service: ? Author Type: Physician Type: ED Provider Notes Filed: 04/24/2021 3:08 AM Note Text: ED Provider Note Patient Name: Kamar Fountain SERVICE DATE: 04/23/21 History Patient presents with: Nausea AND Vomiting Dizziness 75-year-old male presents for intractable vertigo with associated nausea and vomiting. Patient with history of high cholesterol and hypertension but no history of stroke. States he has a family history of stroke in his brother who of a stroke. Patient tells me at 1 PM, while getting ready for the football game, he sat down in his chair and felt slightly dizzy. Ringling nauseated so went to the bathroom and states has been pretty much on the floor in the bathroom since then with intractable dizziness and nausea. Patient denies any chest pain or trouble breathing. No fevers or chills. No weakness to the arms or legs. Patient denies any numbness. States his vision is normal. His speech is normal. Is awake alert and appropriate otherwise. Patient was brought in by EMS about 8 hours after the start of his symptoms. Given 2 doses of Zofran in route without resolution of his nausea. PAST MEDICAL HISTORY Diagnosis Date - Hypertension PAST SURGICAL HISTORY Procedure Laterality Date - APPENDECTOMY HX No family history on file. Social History Tobacco Use - Smoking status: Former Smoker - Smokeless tobacco: Never Used Substance and Sexual Activity - Alcohol use: No - Drug use: No - Sexual activity: Not Currently ALLERGIES No Known Allergies Review of Systems Constitutional: Negative. HENT: Negative. Eyes: Negative. Respiratory: Negative. Cardiovascular: Negative. Gastrointestinal: Positive for nausea and vomiting. Endocrine: Negative. Genitourinary: Negative. Musculoskeletal: Negative. Skin: Negative. Allergic/Immunologic: Negative. Neurological: Positive for dizziness. Hematological: Negative. Psychiatric/Behavioral: Negative. Physical Exam BP 152/72 Pulse 76 Temp (Src) 97.4 (Oral) Resp 18 Wt 223 lb 4.8 oz (101.3kg) SpO2 96% Physical Exam Vitals and nursing note reviewed. Constitutional: Appearance: He is well-developed. HENT: Head: Normocephalic and atraumatic. Mouth/Throat: Comments: Poor but dry Eyes: Conjunctiva/sclera: Conjunctivae normal. Pupils: Pupils are equal, round, and reactive to light. Cardiovascular: Rate and Rhythm: Normal rate and regular rhythm. Heart sounds: Normal heart sounds. Pulmonary: Effort: Pulmonary effort is normal. No respiratory distress. Breath sounds: Normal breath sounds. No wheezing or rales. Abdominal: General: Bowel sounds are normal. There is no distension. Palpations: Abdomen is soft. There is no mass. Tenderness: There is no abdominal tenderness. There is no guarding or rebound. Musculoskeletal: General: No tenderness. Normal range of motion. Cervical back: Normal range of motion and neck supple. Skin: General: Skin is warm and dry. Neurological: General: No focal deficit present. Mental Status: He is alert and oriented to person, place, and time. Cranial Nerves: No cranial nerve deficit. Motor: No weakness. Comments: Patient's zkretg-lw-hvvc was normal with no evidence of ataxia. No weakness to the arms or legs. No visual field cuts or deficits. No aphasia and no slurred speech. Patient had no neglect. Sensation was normal. Psychiatric: Mood and Affect: Mood normal. Behavior: Behavior normal. Thought Content: Thought content normal. Judgment: Judgment normal. Diagnostic Testing ED Labs Ordered and Reviewed - No data to display Procedures ED Course / Clinical Impression Clinical Impressions as of Apr 24 27 Vertigo Nausea and vomiting, intractability of vomiting not specified, unspecified vomiting type MDM / Disposition / Plan Patient initial lab work and CT were negative. CT was ordered to rule out any type of posterior circulation abnormality as a cause for the patient's vertigo. Radiology called me and informed me that the posterior circulation X looks good but the right internal carotid is occluded. He has 60% stenosis on the left. Patient has no anterior circulation symptoms at this time. He has no weakness or numbness on the left side. He has no speech difficulty. Is no facial droop. Patient's symptoms are more consistent with posterior circulation at this time. Patient does feel quite a bit better after the Ativan and is able to stand. Cortcr-yc-xoyx and xhda-rj-tjfc were normal. Patient is still somewhat vertiginous in still need admission for this. There is also the concern of the occluded right internal carotid artery. This will need work-up also so I discussed the case with the hospitalist was comfortable admitting him here and consulting vascular. Patient was given aspirin in the ED and admitted in stable condition. EKG (more content not included)... Normal [facility] Magnesiumon 04-23-2021 Magnesium [Mass/Vol] 1.9 mg/dL Normal 1.7-2.3 [facility] Comment on above: Performed By: #### C MP, MG1, CBC ####[facility] [address] [place], [place] [phone] Troponin Ton 04-23-2021 Troponin T <0.010 Normal 0.000-0.029 [facility] Comment on above: Performed By: #### T NT ####[facility] Yjwxcecapn9909 [phone] Vital Signs Date Time Vital Sign Value Performing Clinician Facility 05-04-2024 13:19-0400 Diastolic blood pressure 64 mm[Hg] Gabby Gama DO Work Phone: [facility] 05-04-2024 13:19-0400 Heart rate 83 /min Gabby Gama DO Work Phone: [facility] 05-04-2024 13:19-0400 SaO2% (BldA) [Mass fraction] 95 % Gabby Gama DO Work Phone: [facility] 05-04-2024 13:19-0400 Systolic blood pressure 126 mm[Hg] Gabby Gama DO Work Phone: [facility] 02-26-2023 14:57-0400 Diastolic blood pressure 55 mm[Hg] Татьяна Octavio MANAGER ENVIRONMENTAL HEALTH.PHYSICIAN NEONATOLOGY Work Phone: [facility] 02-26-2023 14:57-0400 Heart rate 63 /min Татьяна Octavio MANAGER ENVIRONMENTAL HEALTH.PHYSICIAN NEONATOLOGY Work Phone: [facility] 02-26-2023 14:57-0400 SaO2% (BldA) [Mass fraction] 95 % Татьяна Octavio MANAGER ENVIRONMENTAL HEALTH.PHYSICIAN NEONATOLOGY Work Phone: [facility] 02-26-2023 14:57-0400 Systolic blood pressure 110 mm[Hg] Татьяна Octavio MANAGER ENVIRONMENTAL HEALTH.PHYSICIAN NEONATOLOGY Work Phone: [facility] 11-30-2021 13:27-0400 Body height 172.7 cm Gabby Gama DO Work Phone: [facility] 11-30-2021 13:27-0400 Body weight 97.98 kg Gabby Gama DO Work Phone: [facility] 05-12-2022 13:27-0400 Diastolic blood pressure 66 mm[Hg] Gabby Gama DO Work Phone: [facility] 11-30-2021 13:27-0400 Heart rate 63 /min Gabby Gama DO Work Phone: [facility] 11-30-2021 13:27-0400 SaO2% (BldA) [Mass fraction] 95 % Gabby Gama DO Work Phone: [facility] 11-30-2021 13:27-0400 Systolic blood pressure 112 mm[Hg] Gabby Gama DO Work Phone: [facility] 10-19-2021 09:40-0400 Body height 172.7 cm Erickson Cast DO Work Phone: [facility] 10-19-2021 09:40-0400 Body weight 99.02 kg Erickson Cast DO Work Phone: [facility] 10-19-2021 09:40-0400 Diastolic blood pressure 70 mm[Hg] Erickson Cast DO Work Phone: [facility] 10-19-2021 09:40-0400 Heart rate 60 /min Erickson Cast DO Work Phone: [facility] 10-19-2021 09:40-0400 SaO2% (BldA) [Mass fraction] 98 % Erickson Cast DO Work Phone: [facility] 10-19-2021 09:40-0400 Systolic blood pressure 134 mm[Hg] Erickson Cast DO Work Phone: [facility] 09-20-2019 16:38-0500 BMI (Body Mass Index) 32.49 kg/m2 Gorge [facility] Work Phone: 09-20-2019 16:38-0500 Body Temperature 98.1 [degF] Gorge [facility] Work Phone: 09-20-2019 16:38-0500 Body weight 99.79 kg Gorge [facility] Work Phone: 09-20-2019 16:38-0500 BSA (Body Surface Area) 2.15 m2 Gorge [facility] Work Phone: 09-20-2019 16:38-0500 Height 175.26 cm Gorge [facility] Work Phone: 09-20-2019 16:38-0500 Pulse (Heart Rate) 65 /min Gorge [facility] Work Phone: 09-20-2019 16:38-0500 Pulse Oximetry 94 % Gorge [facility] Work Phone: 09-20-2019 16:38-0500 Respiratory Rate 20 /min Gorge [facility] Work Phone: 09-20-2019 16:38-0500 2 1 Gorge [facility] Work Phone: Comment on above: Pain Scale Encounters Encounter Date Encounter Type Care Provider Facility Start: 05-04-2024 End: 05-04-2024 Patient encounter procedure Gabby Gama DO Work Phone: Vascular Surgery Comment on above: Bilateral carotid ar blair stenosis (Primary Dx) Start: 05-04-2024 End: 05-04-2024 ambulatory GABBY GAMA Facility:[facility] Start: 02-26-2023 End: 02-26-2023 Office outpatient visit 25 minutes Татьяна Cunningham APRN.PHYSICIAN NEONATOLOGY Work Phone: Vascular Surgery Comment on above: Bilateral carotid ar blair stenosis (Primary Dx); Primary hypertension Start: 01-18-2023 Telephone encounter Gabby Gama DO Work Phone: Vascular Surgery Comment on above: Appointment Start: 11-30-2021 End: 11-30-2021 Patient encounter procedure Gabby Gama DO Work Phone: Vascular Surgery Comment on above: Cerebrovascular acci dent (CVA), unspecified mechanism (HCC); Stenosis of left carotid artery; Occlusion of right carotid artery; Occlusion and stenosis of right carotid artery Start: 10-19-2021 End: 10-19-2021 Patient encounter procedure Erickson Cast DO Work Phone: Cardiology Comment on above: Cerebrovascular acci dent (CVA), unspecified mechanism (HCC) (Primary Dx); Encounter for screening for cardiovascular disorders; Bilateral carotid artery stenosis; Primary hypertension; Abnormal ECG; Mixed hyperlipidemia Procedures Date Procedure Procedure Detail Performing Clinician Start: 09-20-2019 Follow-up visit Plan of Treatment Date Care Activity Detail Author Start: 02-18-2027 Urine microalbumin profile DTaP,Tdap,Td Vaccine (2 - Td or Tdap) [facility] Start: 05-04-2025 BP Controlled (<130/80) BP Controlle d (<130/80) [facility] Start: 03-22-2024 Covid-19 Vaccine () Covid-19 Vaccine () [facility] Start: 03-22-2024 Influenza vaccination Influenza Vacc ine (#1) [facility] Start: 02-27-2024 BP CONTROLLED (<130/80) BP CONTROLLE D (<130/80) [facility] Start: 07-22-2023 Advance Directive Discussion Advance Directive Discussion [facility] Start: 03-22-2023 Influenza vaccination [facility] Start: 11-30-2022 BP CONTROLLED (<130/80) BP CONTROLLE D (<130/80) [facility] Start: 07-22-2022 ADVANCE DIRECTIVE DISCUSSION ADVANCE DIRECTIVE DISCUSSION [facility] Start: 07-22-2022 DEPRESSION ASSESSMENT DEPRESSION ASS ESSMENT [facility] Start: 04-25-2022 Hepatitis B surface antibody level LDL CHOLESTEROL [facility] Start: 10-23-2021 Hemoglobin A1c measurement HbA1C [facility] Start: 10-23-2021 Hemoglobin A1c/Hemoglobin.total in Blood HBA1C [facility] Start: 10-10-2021 COVID-19 VACCINE (4 - Booster for Moderna series) COVID-19 VACCINE (4 - Booster for Moderna series) [facility] Start: 08-07-2021 COVID-19 VACCINE (4 - Booster for Moderna series) COVID-19 VACCINE (4 - Booster for Moderna series) [facility] Start: 08-07-2021 COVID-19 VACCINE (4 - Moderna series) COVID-19 VACCINE (4 - Moderna series) [facility] Start: 07-22-2021 ADVANCE DIRECTIVE DISCUSSION ADVANCE DIRECTIVE DISCUSSION [facility] Start: 11-01-2016 Pneumococcal Vaccine : 65+ (2 of 2 - PPSV23 or PCV20) Pneumococcal Vaccine: 65+ (2 of 2 - PPSV23 or PCV20) [facility] Start: 2012 PNEUMOVAX AGE 65 AND OVER WITH 5YR LOOKBACK (#1) PNEUMOVAX AGE 65 AND OVER WITH 5YR LOOKBACK (#1) [facility] Start: 1997 SHINGRIX VACCINE (1 of 2) SHINGRIX VACCINE (1 of 2) [facility] Start: 1992 COLOGUARD (FIT-DNA) COLOGUARD (FIT-D NA) [facility] Start: 1992 Colonoscopy COLONOSCOPY [facility] Start: 1992 COLORECTAL CANCER SCREENING COLORECTAL CANCER SCREENING [facility] Start: [address] COLONOGRAPHY [facility] Start: 1992 FECAL OCCULT BLOOD FECAL OCCULT BLOO D [facility] Start: 1992 SIGMOIDOSCOPY SIGMOIDOSCOPY [facility] Start: 1966 Urine microalbumin profile DTAP,TDAP,TD (1 - Tdap) [facility] Start: 1965 ANNUAL PCP TEAM SAW MAKER JOSIAH DISEASE VISIT ANNUAL PCP TEAM CHRONIC DISEASE VISIT [facility] Start: 1965 Anxiety Screening Anxiety Screening [facility] Start: 1965 BP CONTROLLED (<130/80) BP CONTROLLE D (<130/80) [facility] Start: 1965 Depression Screening Depression Scre ening [facility] Start: 1965 HEPATITIS C SCREENING HEPATITIS C [facility] Start: 1965 Hepatitis C screening Hepatitis C [facility] Start: 1959 Adult depression screening assessment DEPRESSION SCREENING [facility] Start: 1957 3 comp foot exam completed DIABETIC FOOT EXAM [facility] Start: 1957 Diabetic foot examination Diabetic Foot Exam [facility] Start: 1957 Glaucoma screening Dilated Retinal E xam [facility] Start: 1957 Hepatitis B screening URINE AL BUMIN:CREATININE RATIO [facility] Start: 1957 Hepatitis C antibody , confirmatory test DILATED RETINAL EXAM [facility] Start: 1953 PNEUMOCOCCAL: 65+ (1 - PCV) PNEUMOCOCCAL: 65+ (1 - PCV) [facility] Start: 1947 ABDOMINAL AORTIC ANEURYSM SCREENING ABDOMINAL AORTIC ANEURYSM SCREENING [facility] End: 10-19-2022 ECG COMPLETE ECG COMPLETE ECG Routine Cerebrovascular accident (CVA), unspecified mechanism (HCC) Bilateral carotid artery stenosis Primary hypertension 1 Occurrences starting 10/19/2021 until 10/19/2022 [facility] Work Phone: Comment on above: 1 Occurrences starti ng 10/19/2021 until 10/19/2022 End: 11-30-2022 US CAROTID ARTERIES [facility] US CAROTID ARTERIES [facility] Vascular Lab Routine Cerebrovascular accident (CVA), unspecified mechanism (HCC) Occlusion and stenosis of right carotid artery 1 Occurrences starting 11/30/2021 until 11/30/2022 [facility] Work Phone: Comment on above: 1 Occurrences starti ng 11/30/2021 until 11/30/2022 [facility] Immunizations Immunization Date Immunization Notes Care Provider Charles martinez 07-31-2023 influenza virus vacc ine, unspecified formulation Gabby Gama DO Work Phone: [facility] Payers Date Payer Category Payer Medicare [id number] 2012 Medicare MEDICARE MEDICAR E A AND B [id number] 2012-Present [phone] [place] [address] Medicare [id number] 2012 Medicare [id number] Social History Date Type Detail Facility Assertion Tobacco smoking consumption unknown (finding) [facility] Work Phone: Start: 10-29-2011 End: 05-04-2024 Tobacco smoking status NHIS Ex-smoker [facility] End: 09-22-1991 History of tobacco use Current smoker [facility] Start: 10-29-2011 End: 05-04-2024 Tobacco use and exposure Smokeless tobacco non-user [facility] Start: 10-19-2021 End: 05-04-2024 Alcohol intake Current non-drinker of alcohol (finding) [facility] Start: 1945 Sex Assigned At Not on file [facility] Start: 08-26-2021 End: 09-25-2021 Exposure to SARS-CoV-2 (event) Not sure [facility] End: 09-22-1991 History of tobacco use Cigarette Smoker [facility] Start: 02-26-2023 End: 05-04-2024 History of Social function [facility] Start: 02-26-2023 End: 05-04-2024 Tobacco use panel [facility] National Score (1-100), lower number is lower risk 78 [facility] Goals Date Patient Goal Desired Activity /State Personal health goal Functional Status Date Assessment Result Facility NEGATED: Highlighted row Functional performance Functional status health issues are not documented [facility] Work Phone: Mental Status Date Assessment Result Facility NEGATED: Highlighted row Cognitive function [Interpretation] Cognitive status health issues are not documented [facility] Work Phone: Clinical Notes 04-24-2021 to 05-04-2024 Gabby Gama DO - 05/04/2024 1:15 PM Татьяна Marcos, MANAGER ENVIRONMENTAL HEALTH.PHYSICIAN NEONATOLOGY - 02/26/2023 3:01 PM EDTAddendum Note - Cathryn Hurtado - 01/18/2023 10:31 AM Kary Gama DO - 11/30/2021 4:47 PM EDT Note Date & Type Note Facility 05-04-2024 Note HNO ID: [id number] Author: GABBY GAMA DO Service: ? Author Type: Physician Type: Progress Notes Filed: 05/04/2024 14:19 Note Text: [facility] [place] DEPARTMENT OF VASCULAR SURGERY OUTPATIENT VISIT DATE May 04, 2024 OUTPATIENT VISIT TYPE ESTABLISHED SERVICE DATE: 05/04/2024 SERVICE TIME: 1:15 PM PRIMARY CARE PHYSICIAN: Claude Medina APRN.PHYSICIAN NEONATOLOGY HISTORY OF PRESENT ILLNESS: Mr. Fountain is a 78 year old male who presents today for a vascular surgery follow-up visit after carotid duplex. He denies any complaints. 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 metFORMIN (GLUCOPHAGE) 500 mg tablet Take 500 mg by mouth twice daily with meals. atenolol 100 mg ORAL tablet Take 100 mg by mouth once daily. aspirin, enteric coated 81 mg ORAL EC tablet Take 81 mg by mouth once daily. meclizine (ANTIVERT) 12.5 mg tab Take 25 mg by mouth three times daily as needed. (Patient not taking: Reported on 10/19/2021 ) Cholecalciferol, Vitamin D3, (VITAMIN D) 25 mcg (1,000 unit) cap Take 1,000 Units by mouth once daily. clopidogrel (PLAVIX) 75 mg tablet Take 1 tablet by mouth once daily for 88 doses. (Patient not taking: Reported on 10/19/2021 ) LISINOPRIL-HYDROCHLOROTHIAZIDE ORAL Take 20 mg by mouth twice daily. Popfgkjytxayr-Iokfsgwy-Rldcsr (CENTRUM SILVER) ORAL Tab Take 1 tablet by mouth once daily. CYANOCOBALAMIN/COBAMAMIDE (B12 SUBLINGUAL) Dissolve under the tongue once daily. esomeprazole (NEXIUM) 40 mg capsule Take 40 mg by mouth once daily. (Patient not taking: Reported on 10/19/2021 ) ASPIRIN/SOD BICARB/CITRIC ACID (SVITLANA-SELTZER ORAL) Take by mouth as needed. ALLERGIES: ALLERGIES No Known Allergies PHYSICAL EXAM: There were no vitals taken for this visit. Gen- no distress Neuro- no focal deficit Diagnostic tests reviewed for today's visit: Most recent labs Most recent imaging Carotid Duplex Compared to prior study of 02/26/2023, No change from previous study. RIGHT SIDE Common carotid artery: Plaque visualized without evidence of hemodynamically significant stenosis. Internal carotid artery: Occluded. Known occlusion. External carotid artery: Patent. Vertebral artery: Patent and antegrade flow noted. Innominate artery: Patent. Subclavian artery: Patent. LEFT SIDE Common carotid artery: Plaque visualized without evidence of hemodynamically significant stenosis. Internal carotid artery: 20-39% stenosis. External carotid artery: Patent. Vertebral artery: Patent and antegrade flow noted. Subclavian artery: Patent. IMPRESSION: Mr. Fountain is a 78 year old male with carotid artery stenosis . PLAN and RECOMMENDATIONS: Continue surveillance Recommend continued blood pressure and cholesterol control Follow up in 2 years with repeat imaging SIGNATURE: Gabby Gama DO PATIENT NAME: Kamar Fountain DATE: May 04, 2024 TIME: 1:15 PM [facility] 05-04-2024 History of Present illness Narrative Images from the original note were not included. [facility] [place] DEPARTMENT OF VASCULAR SURGERY OUTPATIENT VISIT DATE May 04, 2024 OUTPATIENT VISIT TYPE ESTABLISHED SERVICE DATE: 05/04/2024 SERVICE TIME: 1:15 PM PRIMARY CARE PHYSICIAN: Claude Medina APRN.PHYSICIAN NEONATOLOGY HISTORY OF PRESENT ILLNESS: Mr. Fountain is a 78 year old male who presents today for a vascular surgery follow-up visit after carotid duplex. He denies any complaints. 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 metFORMIN (GLUCOPHAGE) 500 mg tablet Take 500 mg by mouth twice daily with meals. atenolol 100 mg ORAL tablet Take 100 mg by mouth once daily. aspirin, enteric coated 81 mg ORAL EC tablet Take 81 mg by mouth once daily. meclizine (ANTIVERT) 12.5 mg tab Take 25 mg by mouth three times daily as needed. (Patient not taking: Reported on 10/19/2021 ) Cholecalciferol, Vitamin D3, (VITAMIN D) 25 mcg (1,000 unit) cap Take 1,000 Units by mouth once daily. clopidogrel (PLAVIX) 75 mg tablet Take 1 tablet by mouth once daily for 88 doses. (Patient not taking: Reported on 10/19/2021 ) LISINOPRIL-HYDROCHLOROTHIAZIDE ORAL Take 20 mg by mouth twice daily. Sazemfpxehufe-Pjfkgtlo-Zxgnkj (CENTRUM SILVER) ORAL Tab Take 1 tablet by mouth once daily. CYANOCOBALAMIN/COBAMAMIDE (B12 SUBLINGUAL) Dissolve under the tongue once daily. esomeprazole (NEXIUM) 40 mg capsule Take 40 mg by mouth once daily. (Patient not taking: Reported on 10/19/2021 ) ASPIRIN/SOD BICARB/CITRIC ACID (SVITLANA-SELTZER ORAL) Take by mouth as needed. ALLERGIES: ALLERGIES No Known Allergies PHYSICAL EXAM: There were no vitals taken for this visit. Gen- no distress Neuro- no focal deficit Diagnostic tests reviewed for today's visit: Most recent labs Most recent imaging Carotid Duplex Compared to prior study of 02/26/2023, No change from previous study. RIGHT SIDE Common carotid artery: Plaque visualized without evidence of hemodynamically significant stenosis. Internal carotid artery: Occluded. Known occlusion. External carotid artery: Patent. Vertebral artery: Patent and antegrade flow noted. Innominate artery: Patent. Subclavian artery: Patent. LEFT SIDE Common carotid artery: Plaque visualized without evidence of hemodynamically significant stenosis. Internal carotid artery: 20-39% stenosis. External carotid artery: Patent. Vertebral artery: Patent and antegrade flow noted. Subclavian artery: Patent. IMPRESSION: Mr. oFuntain is a 78 year old male with carotid artery stenosis . PLAN and RECOMMENDATIONS: Continue surveillance Recommend continued blood pressure and cholesterol control Follow up in 2 years with repeat imaging SIGNATURE: Gabby Gama DO PATIENT NAME: Kamar Fountain DATE: May 04, 2024 TIME: 1:15 PM documented in this encounter [facility] 02-26-2023 History of Present illness Narrative Images from the original note were not included. [facility] [place] DEPARTMENT OF VASCULAR SURGERY OUTPATIENT VISIT DATE February 26, 2023 OUTPATIENT VISIT TYPE ESTABLISHED SERVICE DATE: 02/26/2023 SERVICE TIME: 3:01 PM PRIMARY CARE PHYSICIAN: Claude Medina APRN.RENE HISTORY OF PRESENT ILLNESS: Mr. Fountain is a 77 year old male with PMhx of HTN, HDl, Carotid Artery Stenosis, CVA that who presents today for to review non-invasive testing. Reports feeling well. He denies any focal neurologic deficit. Overall, he is doing well. 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 atorvastatin (LIPITOR) 80 mg tablet 1 tablet by ORAL/FEEDING TUBE route daily at bedtime. metFORMIN (GLUCOPHAGE) 500 mg tablet Take 500 mg by mouth twice daily with meals. atenolol 100 mg ORAL tablet Take 100 mg by mouth once daily. LISINOPRIL-HYDROCHLOROTHIAZIDE ORAL Take 20 mg by mouth twice daily. aspirin, enteric coated 81 mg ORAL EC tablet Take 81 mg by mouth once daily. Bfsoavyilqenw-Drdkurki-Idespd (CENTRUM SILVER) ORAL Tab Take 1 tablet by mouth once daily. CYANOCOBALAMIN/COBAMAMIDE (B12 SUBLINGUAL) Dissolve under the tongue once daily. ASPIRIN/SOD BICARB/CITRIC ACID (SVITLANA-SELTZER ORAL) Take by mouth as needed. meclizine (ANTIVERT) 12.5 mg tab Take 25 mg by mouth three times daily as needed. (Patient not taking: Reported on 10/19/2021 ) clopidogrel (PLAVIX) 75 mg tablet Take 1 tablet by mouth once daily for 88 doses. (Patient not taking: Reported on 10/19/2021 ) esomeprazole (NEXIUM) 40 mg capsule Take 40 mg by mouth once daily. (Patient not taking: Reported on 10/19/2021 ) Review of Systems: PAIN ASSESSMENT: Negative for pain, history of chronic pain, or current treatment for a chronic pain condition. GENERAL: No weight loss, malaise or fevers. HEENT: Negative for frequent or significant headaches, No changes in hearing or vision, no nose bleeds or other nasal problems NECK: Negative for goiter, pain or significant neck swelling RESPIRATORY: Negative for cough, hemoptysis, wheezing, COPD, dyspnea or shortness of breath CARDIOVASCULAR: Negative for chest pain, leg swelling, hypertension, CHF or palpitations GI: No nausea, vomiting, or diarrhea : No history of dysuria, frequency or incontinence MUSCULOSKELETAL: Negative for joint pain or swelling, back pain or muscle pain SKIN: Negative for lesions, rash, and itching. The remainder of the review of systems is negative. ALLERGIES: ALLERGIES No Known Allergies PHYSICAL EXAM: BP 110/55 (BP Site: Right Arm, BP Position: Sitting, BP Cuff Size: Regular Adult) Pulse 63 SpO2 95% General: Alert and oriented x3 Integumentary: Normal color, no rash, no lesions. HEENT: EOM, pupils equal, round and reactive. Cardiovascular: Normal S1 & S2, no rubs, murmurs or gallops. No JVD., Pulse regular. Lungs: Normal breath sounds, no wheezes or crackles. Abdomen: Soft, non-tender, no rigidity. Extremities: No deformity, no edema or tenderness, no joint swelling or clubbing. Neurological: Normal cognition and motor skills. Vascular: Carotid Exam: WNL Diagnostic tests reviewed for today's visit: Most recent imaging 02/26/2023 Carotid Duplex: PARISH: Right ICA is chronically occluded LICA: 20-39% IMPRESSION: Mr. Fountain is a 77 year old male HTN, HDl, Carotid Artery Stenosis with chronically occluded Right ICA, stable PLAN and RECOMMENDATIONS: - Continue with antihypertensives - Continue with surveillance testing with Carotid Duplex 1 year - Follow up with Vascular surgery in 1 year SIGNATURE: Татьяна Cunningham APRN.CNP PATIENT NAME: Kamar Fountain DATE: February 26, 2023 TIME: 3:01 PM documented in this encounter [facility] 01-18-2023 Miscellaneous Notes Addended by: CATHRYN HURTADO on: 01/18/2023 10:31 AM Modules accepted: Orders Patients calling into the office stating that they where told that her was supposed to follow up in one year with a [facility] but there are no orders. Please advise documented in this encounter [facility] 11-30-2021 History of Present illness Narrative This office note has been dictated. Gabby Gama DO documented in this encounter [facility] 10-19-2021 History of Present illness Narrative Images from the original note were not included. [facility] SE[facility] OUTPATIENT VISIT DATE October 19, 2021 PRIMARY CARE PHYSICIAN: Claude Medina (Sarina) [address] [place], [place] [id number] HISTORY OF PRESENT ILLNESS: Mr. Fountain is a 76 year old male. The patient presents for evaluation treatment options due to recent history of CVA. He additionally is required for screening for cardiovascular disease. Patient was recently admitted to the hospital with vertigo. He has been found to have an occluded right carotid artery and moderate disease on the left. He thankfully has an intact [place]. He has since had a desk monitor which showed short runs of paroxysmal atrial tachycardia characterizes SVT. No other dysrhythmias were appreciated. He was placed uncovertebral for 3 months and is concluded that. He and his are active. He denies chest,, dyspnea orthopnea, paroxysmal nocturnal dyspnea, palpitations, near-syncope or syncope. The patient is and lives at home with his spouse. He is a non-smoker, social drinker. He is active around his house doing activities of daily living. He is retired. Cardiac risk factors: Age, gender, hypertension, hyperlipidemia, diabetes, peripheral arterial disease Impression: 1. Recent CVA 2. Encounter for screening for cardiovascular disorders 3. Bilateral carotid stenosis followed by vascular surgery 4. Hypertension 5. Hyperlipidemia 6. Diabetes 7. Abnormal EKG PLAN AND RECOMMENDATIONS: Given the patient's CVA he should be screened for paroxysmal atrial fibrillation I would recommend consideration for a Linq monitor through electrophysiology. The patient also should be screened for further disease within his aorta for which we recommend a transesophageal echo. Lastly the patient should be screened for coronary artery disease given his comorbidities for which we recommend nuclear stress imaging. We discussed these factors with the patient for which she wishes to further think about them. We have made no additions or changes to his medical regimen in the interim. Dietary and lifestyle modification was briefly emphasized. The patient is somewhat confounded as he is relatively asymptomatic and initially simply wanted evaluation and treatment for his vertigo which he has had intermittently for a number of years. We discussed this with he and his in detail. Once again he will discuss further with family his potential screenings and review such with us in follow-up in a couple months time after which further recommendations will follow. Vitals: BP 134/70 Pulse 60 Ht 172.7 cm (5' 8) Wt 99 kg (218 lb 4.8 oz) SpO2 98% BMI 33.19 kg/m Physical Exam Vitals reviewed. Constitutional: General: He is not in acute distress. Appearance: He is well-developed. He is not diaphoretic. HENT: Head: Normocephalic and atraumatic. Right Ear: External ear normal. Left Ear: External ear normal. Nose: Nose normal. Eyes: General: No scleral icterus. Right eye: No discharge. Left eye: No discharge. Pupils: Pupils are equal, round, and reactive to light. Neck: Thyroid: No thyromegaly. Vascular: Decreased carotid pulses. Carotid bruit present. No JVD. Cardiovascular: Rate and Rhythm: Normal rate and regular rhythm. Heart sounds: No murmur heard. No friction rub. No gallop. Pulmonary: Effort: Pulmonary effort is normal. No respiratory distress. Breath sounds: Normal breath sounds. No wheezing or rales. Abdominal: General: Bowel sounds are normal. Palpations: Abdomen is soft. Musculoskeletal: General: Normal range of motion. Cervical back: Neck supple. Skin: General: Skin is warm and dry. Coloration: Skin is not pale. Neurological: Mental Status: He is alert and oriented to person, place, and time. Cranial Nerves: No cranial nerve deficit. Psychiatric: Mood and Affect: Mood is not anxious or depressed. Behavior: Behavior normal. Thought Content: Thought content normal. Judgment: Judgment normal. Review of Systems Constitutional: Negative for activity change, appetite change, fatigue and unexpected weight change. HENT: Negative for ear pain and trouble swallowing. Eyes: Negative for pain and visual disturbance. Respiratory: Negative for chest tightness and shortness of breath. Cardiovascular: Negative for chest pain, palpitations and leg swelling. Gastrointestinal: Negative for abdominal pain and blood in stool. Endocrine: Negative for cold intolerance and heat intolerance. Genitourinary: Negative for dysuria, hematuria and scrotal swelling. Musculoskeletal: Negative for arthralgias and myalgias. Skin: Negative for pallor and rash. Allergic/Immunologic: Negative for immunocompromised state. Neurological: Negative for dizziness, syncope and light-headedness. Hematological: Negative for adenopathy. Does not bruise/bleed easily. Psychiatric/Behavioral: Negative for sleep disturbance. The patient is not nervous/anxious. PAST MEDICAL HISTORY Diagnosis Date Carotid artery stenosis 04/24/2021 Hypertension Mixed hyperlipidemia 10/19/2021 Stroke (cerebrum) ([facility]) 04/24/2021 Type 2 diabetes mellitus ([facility]) 04/24/2021 PAST SURGICAL HISTORY Procedure Laterality Date APPENDECTOMY HX Social History Tobacco Use Smoking status: Former Smoker Quit date: 09/22/1991 Years since quittin.0 Smokeless tobacco: Never Used Substance Use Topics Alcohol use: No Drug use: No No family history on file. No family history of premature coronary artery disease. ALLERGIES No Known Allergies CURRENT MEDICATIONS: Cholecalciferol, Vitamin D3, (VITAMIN D) 25 mcg (1,000 unit) cap Take 1,000 Units by mouth once daily. atorvastatin (LIPITOR) 80 mg tablet 1 tablet by ORAL/FEEDING TUBE route daily at bedtime. metFORMIN (GLUCOPHAGE) 500 mg tablet Take 500 mg by mouth twice daily with meals. atenolol 100 mg ORAL tablet Take 100 mg by mouth once daily. LISINOPRIL-HYDROCHLOROTHIAZIDE ORAL Take 20 mg by mouth twice daily. aspirin, enteric coated 81 mg ORAL EC tablet Take 81 mg by mouth once daily. Kinscfxdajjyw-Yszmfwtu-Lygfzj (CENTRUM SILVER) ORAL Tab Take 1 tablet by mouth once daily. CYANOCOBALAMIN/COBAMAMIDE (B12 SUBLINGUAL) Dissolve under the tongue once daily. ASPIRIN/SOD BICARB/CITRIC ACID (SVITLANA-SELTZER ORAL) Take by mouth as needed. meclizine (ANTIVERT) 12.5 mg tab Take 25 mg by mouth three times daily as needed. clopidogrel (PLAVIX) 75 mg tablet Take 1 tablet by mouth once daily for 88 doses. esomeprazole (NEXIUM) 40 mg capsule Take 40 mg by mouth once daily. EKG performed today demonstrates sinus rhythm with sinus arrhythmia and an incomplete right bundle branch block pattern. Erickson Cast DO, FACC, FACOI Clinical and Preventive Cardiology Department of Medicine and Division of Cardiology, [facility] [employer]er[employer] cargo specialist supervisor [facility] [employer] Truer of Congestive Heart Failure Clinic [facility] Cardiology Office [employer] [facility] Staff Mathematics Academic Chair, Adonis Velásquez Department of Cardiovascular Medicine/[facility] [place], [facility] Clinical Public Health Representative Profressor of Medicine, [facility] [employer] [facility] Please note: This note has been produced using speech recognition software and may contain errors related to that system including jd, punctuation, spelling, words, gender and phrases that may be inappropriate. documented in this encounter [facility] 04-26-2021 Note HNO ID: [id number] Author: Sia Herrera RN Service: Care Management Author Type: Registered Nurse Type: Care Mgt Progress Note Filed: 04/26/2021 11:24 AM Note Text: CARE MANAGEMENT DISCHARGE NOTE SERVICE DATE: 04/26/2021 SERVICE TIME: 11:23 AM LOS: 2 days Admission Date: 04/23/2021 DISCHARGE ARRANGEMENT (list agency and phone number) Discharge Arrangement: Home Provider Name: NA Phone: NA CAREGIVER ASSESSMENT: Caregiver is ready, willing and able to meet the patient's needs as recommended by the inter-professional team:: No Does the patient have an acute stroke diagnosis, or has the patient had a stroke during this admission?: Yes Patient's transition needs and plan for meeting these needs: Home with , self care. HANDOFF COMMUNICATION: Handoff to: Primary Care Physician Primary Care Physician Name/Phone: Claude Medina [phone] TRANSPORTATION ARRANGEMENTS: Transportation Arrangements: Car ADDITIONAL CONTACT RESOURCES: NA Needs Prior to Discharge: Ready for Discharge IMM Follow Up Copy Given: Yes Copy given to:: Patient Method: In Person Discharge written for patient to go home. PT recommends outpatient therapy. Walker issued. Patient agreeable to discharge plan and denies needs. to transport. Bedside nurse updated. SOC sent to PCP. SIGNATURE: Sia Herrera RN PATIENT NAME: Kamar Fountain DATE: April 26, 2021 TIME: 11:23 AM PAGER/CONTACT #: [phone] [facility] 04-25-2021 Note HNO ID: [id number] Author: Robert Quiles MD Service: Vascular Surgery Author Type: Physician Type: Progress Notes Filed: 04/26/2021 12:19 PM Note Text: [facility] VASCULAR SURGERY PROGRESS NOTE INTERVAL EVENTS / PERTINENT ROS: MRI positive for small infarct of left posterior/inferior frontal lobe DUS carotids demonstrated occlusion of right ICA, left ICA w/o clinically significant stenosis Subjective Patient feeling better, decreased dizziness Objective Patient Vitals for the past 24 hrs: BP Temp Temp src Pulse Resp SpO2 Weight 04/25/21 1800 172/88 36.3 ?C (97.3 ?F) Temporal 70 18 97 % ? 04/25/21 1600 145/71 36.2 ?C (97.2 ?F) Temporal 71 18 97 % ? 04/25/21 1400 160/69 36.2 ?C (97.2 ?F) Temporal 72 18 97 % ? 04/25/21 1200 159/77 36.2 ?C (97.2 ?F) Temporal 67 18 97 % ? 04/25/21 1058 169/87 36.4 ?C (97.5 ?F) Temporal 61 18 97 % ? 04/25/21 0800 157/83 36.3 ?C (97.4 ?F) Temporal 70 18 95 % ? 04/25/21 0600 135/63 36.3 ?C (97.4 ?F) Temporal 60 18 95 % ? 04/25/21 0400 137/67 36.3 ?C (97.4 ?F) Temporal 73 16 93 % 100.4 kg (221 lb 5.5 oz) 04/25/21 0200 130/61 36.2 ?C (97.2 ?F) Temporal 73 18 95 % ? 04/25/21 0000 136/60 36.3 ?C (97.3 ?F) Temporal 73 16 95 % ? 04/24/21 2200 156/92 36.2 ?C (97.2 ?F) Temporal 61 18 96 % ? 04/24/21 2000 162/72 36.2 ?C (97.2 ?F) Temporal 69 18 96 % ? Intake/Output Summary (Last 24 hours) at 04/25/2021 1818 Last data filed at 04/25/2021 1800 Gross per 24 hour Intake 880 ml Output ? Net 880 ml Current Weight: Weight: 100.4 kg (221 lb 5.5 oz) Physical Exam: Neuro: AANDO CV: regular rate Resp: CTa Neuro: CN grossly intact, motor/sensory extremities intact Lab Data: Recent Labs 04/24/21 1005 04/24/21 0559 04/23/21 2130 PTSEC 11.4 10.9 -- INR 1.1 1.0 -- APTT 25.6 23.6 -- TROPT -- -- <0.010 Recent Labs 04/25/21 0809 04/24/21 0559 04/23/21 2130 WBC 8.85 13.44* 14.54* HB 15.2 15.0 16.3 HCT 44.3 44.2 47.6 PLT 203 247 242 MCV 88.2 89.1 88.5 MCH 30.3 30.2 30.3 MPV 10.9 11.4 11.2 RDWCV 12.8 12.9 12.6 Assessment/Plan 75 year old male admitted with left sided cerebral infarction, age indeterminate right ICA occlusion. DUS carotids did not demonstrate significant stenosis on left. Plan to review CTA w/ radiology. Continue aggressive medical management with DAPT, statin therapy. SIGNATURE: Robert Quiles MD PATIENT NAME: Kamar Fountain DATE: April 25, 2021 TIME: 6:18 PM ETX#[id number] Addendum CTA reviewed with in house radiology and center line reformatting performed personally on [facility] [employer]. Stenosis on left ICA <50%. Recommend continue aggressive medical management with DAPT, statin therapy. [facility] 04-25-2021 Note HNO ID: [id number] Author: Jasmine Alcantara DO Service: Hospital Medicine Author Type: Physician Type: Progress Notes Filed: 04/25/2021 3:48 PM Note Text: DEPARTMENT OF HOSPITAL MEDICINE PROGRESS NOTE SERVICE DATE: 04/25/2021 SERVICE TIME: 3:44 PM Hospital Medicine/Primary Attending: Jasmine Alcantara DO NIGHT AND WEEKEND COVERAGE: [place] COVERAGE: Days: [phone], please page attending physician. Nights: [phone], please page [facility] Night coverage pager [phone]. Subjective INTERVAL HPI: feels much better today. Dizziness is pretty much gone. Walked with PT and still kind of unsteady. Thinks he will benefit from a walker. No further neurological symptoms No fever or chills. Denies CP, SOB abd pain, Current Facility-Administered Medications Medication Dose Route Frequency - enoxaparin 40 mg injection (LOVENOX) 40 mg SUBCUTANEOUS q 24 HR - NaCl 0.9% iv flush bag 20 mL INTRAVENOUS PRN - sodium chloride 0.9 % (flush) 3-5 mL (BD POSIFLUSH) 3-5 mL INTRAVENOUS q 12 H - sodium chloride 0.9 % (flush) 2-10 mL (BD POSIFLUSH) 2-10 mL INTRAVENOUS q 12 H - aspirin 81 mg chewable tab(s) 81 mg ORAL/FEEDING TUBE DAILY Or - aspirin 300 mg suppository 300 mg RECTAL DAILY - ondansetron (PF) 4 mg injection (ZOFRAN) 4 mg INTRAVENOUS q 6 H PRN - meclizine 25 mg tab(s) (ANTIVERT) 25 mg ORAL TID PRN - dextrose 40 % 15 g 15 g ORAL PRN Or - glucagon 1 mg injection 1 mg INTRAMUSCULAR PRN Or - dextrose 50% in water 25 mL syringe 12.5 g INTRAVENOUS PRN - pantoprazole DR 40 mg tab(s) (PROTONIX) 40 mg ORAL DAILY (6 AM) - clopidogrel 75 mg tab(s) (PLAVIX) 75 mg ORAL DAILY - atorvastatin 80 mg tab(s) (LIPITOR) 80 mg ORAL/FEEDING TUBE AT BEDTIME - sodium chloride 0.9 % (flush) 2-10 mL (BD POSIFLUSH) 2-10 mL INTRAVENOUS DIRECTED PRN - atenolol 100 mg tab(s) (TENORMIN) 100 mg ORAL DAILY - lisinopril 20 mg tab(s) (ZESTRIL, PRINIVIL) 20 mg ORAL DAILY - [START ON 04/26/2021] hydroCHLOROthiazide 25 mg tab(s) (HYDRODIURIL, ESIDRIX) 25 mg ORAL DAILY Objective PHYSICAL EXAM: BP 160/69 Pulse 72 Temp (Src) 97.2 (Temporal) Resp 18 Ht 5' 9 (1.75m) Wt 221 lb 5.5 oz (100.4kg) SpO2 97% BMI 32.67 kg/(m2). O2 Therapy: Room Air Physical Exam Performed GENERAL: Alert, no distress, cooperative LUNGS: Lungs clear to auscultation, Good diaphragmatic excursion CARDIAC: Normal S1 and S2; no rubs, murmurs, or gallops ABDOMEN: Abdomen soft, non-tender, BS normal, EXTREMITIES: Extremities normal, no deformities, edema, clubbing or skin discoloration. NEURO: Gait not assessed. Reflexes normal and symmetric. Sensation grossly intact, Cranial nerves II-XII intact. Strength nml all 4 extremities. No ataxia by finger to nose or heel to santos. Nystagmus resolved Lines, Drains, and Airways Line Peripheral 04/23/212112 Admission to Hospital Short Left Hand 22 Gauge 1 day Peripheral 04/23/212119 Short Right Arm 20 Gauge 1 day DATA: Diagnostic tests reviewed for today's visit: Most recent labs Most recent imaging Assessment/Plan Problem List Stroke (cerebrum) (HCC) POA: Yes Type 2 diabetes mellitus (HCC) POA: . Hypertension POA: . Obesity (BMI 30.0-34.9) POA: . Carotid artery stenosis POA: . HOSPITAL COURSE: Kamar Fountain is a 75 year old male presented with past medical history of HTN, diabetes, former smoker presents with dizziness and vertigo. 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 Primary differential considerations includes dissection versus thrombosis Moderate to severe calcified plaque of the left ICA bulb with approximately 60% stenosis. Moderate stenosis of the left nondominant vertebral artery origin and C5 foraminal segment. Principal Problem: Stroke (cerebrum) (HCC) MRI with small acute infarct of left posterior/inferior frontal lobe Stroke protocol Start aspirin and plavix, high dose statin Neurology following Echo, lipid panel, HgA1c completed PT/OT F/u of hypercoag panel as per neurology Watch in hospital one more day. He is much improved in his dizziness but still unsteady gait. I hope for continued improvement and more steady on his feet tomorrow for discharge home Active Problems: Type 2 diabetes mellitus (HCC) Metformin on hold, monitor sugars Hypertension Restart Lisinopril/HCTZ and atenolol Carotid artery stenosis Vascular surgery consulted. DAPT and statin Medication and Non-Pharmacologic VTE Prophylaxis/Anticoagulants Anticoagulant AND Antiplatelet Medications (From admission, onward) Start Dose Route Frequency Last Action Ordered Stop 04/25/21 09 clopidogrel 75 mg tab(s) (PLAVIX) 75 mg ORAL DAILY Given, 04/25 83904/24/21 0915 05/15/21 0859 04/24/21 0900 aspirin 81 mg chewable tab(s) (aspirin non-enteric coated 81mg ORAL OR 300mg AL) 81 mg PO/FT DAILY Given, 04/25 83804/24/21537 -- 04/24/21 06 enoxapar (more content not included)... [facility] 04-25-2021 Note HNO ID: [id number] Author: Sridhar Gonsales RN Service: Diabetes Education Author Type: Registered Nurse Type: Patient Education Filed: 04/25/2021 11:32 AM Note Text: DIABETES EDUCATION INPATIENT PROGRESS NOTE INITIAL OR FOLLOW-UP: follow up visit VISIT TYPE: in-person SERVICE DATE: 04/25/2021 SERVICE TIME: 1100 RECOMMENDATIONS TO DISCHARGING PROVIDER FOR DISCHARGE ORDERS: Place outpatient referral for CONSULT TO DIABETES EDUCATION RECOMMENDATIONS TO INPATIENT NURSE: N/A PATIENT HISTORY/ASSESSMENT: Previously diagnosed: Type 2 Treatment prior to hospitalization: Oral Agent(s): metformin Has meter: reports he checks fasting daily Reviewed basic survival skills with pt. EDUCATION: Cognitive ability: Alert and Oriented. Motivation to learn: Interested. Barriers to learning: None Family support: High - Very involved in pt care Education Type: Individual instruction Written instruction - handouts Verbal instruction Response to education: States/Identifies. Education provided to: Patient and Family. Teachback method used: Yes Handouts provided: Healthy You: Survival Skills SIGNATURE: Sridhar Gonsales RN PATIENT NAME: Kamar Fountain DATE: April 25, 2021 TIME: 11:31 AM PAGER: [phone] [facility] 04-24-2021 Note HNO ID: [id number] Author: Sridhar Gonsales RN Service: Diabetes Education Author Type: Registered Nurse Type: Patient Education Filed: 04/24/2021 2:55 PM Note Text: DIABETES EDUCATION INPATIENT PROGRESS NOTE INITIAL OR FOLLOW-UP: First diabetes care AND education visit this admission VISIT TYPE: in-person SERVICE DATE: 04/24/2021 SERVICE TIME: 1450 RECOMMENDATIONS TO DISCHARGING PROVIDER FOR DISCHARGE ORDERS: Follow-up with PCP after discharge RECOMMENDATIONS TO INPATIENT NURSE: N/A PATIENT HISTORY/ASSESSMENT: New diagnosis: Undetermined type of DM - A1c is in process, elevation in setting of vomiting at admission Pt resting with eyes closed, knocked and pt did not stir in response. Meter and Survival Skills Guide left on windowsill will continue to follow. SIGNATURE: Sridhar Gonsales RN PATIENT NAME: Kamar Fountain DATE: April 24, 2021 TIME: 2:52 PM PAGER: [phone] [facility] 04-24-2021 Note HNO ID: [id number] Author: Jasmine Alcantara DO Service: Hospital Medicine Author Type: Physician Type: Progress Notes Filed: 04/24/2021 3:05 PM Note Text: DEPARTMENT OF HOSPITAL MEDICINE PROGRESS NOTE SERVICE DATE: 04/24/2021 SERVICE TIME: 2:52 PM Hospital Medicine/Primary Attending: Jasmine Alcantara DO NIGHT AND WEEKEND COVERAGE: [place] COVERAGE: : [phone], please page attending physician. Nights: [phone], please page [facility] Night coverage pager [phone]. Subjective INTERVAL HPI: doing better today. Seen in am and again with his at bedside. Reviewed results of MRI. No longer vomiting and less dizziness. Still has some nausea but did eat a little He can't sit up or stand yet but is moving his head back and forth and can keep his eyes open. He thinks he will be very unsteady on his feet. No slurred speech or weakness in the extremities. No fever or chills. Denies CP, SOB abd pain, Current Facility-Administered Medications Medication Dose Route Frequency - iv contrast (radiology procedure) INTRAVENOUS DIRECTED PRN - enoxaparin 40 mg injection (LOVENOX) 40 mg SUBCUTANEOUS q 24 HR - NaCl 0.9% iv flush bag 20 mL INTRAVENOUS PRN - sodium chloride 0.9 % (flush) 3-5 mL (BD POSIFLUSH) 3-5 mL INTRAVENOUS q 12 H - sodium chloride 0.9 % (flush) 2-10 mL (BD POSIFLUSH) 2-10 mL INTRAVENOUS q 12 H - aspirin 81 mg chewable tab(s) 81 mg ORAL/FEEDING TUBE DAILY Or - aspirin 300 mg suppository 300 mg RECTAL DAILY - ondansetron (PF) 4 mg injection (ZOFRAN) 4 mg INTRAVENOUS q 6 H PRN - meclizine 25 mg tab(s) (ANTIVERT) 25 mg ORAL TID - [START ON 04/25/2021] meclizine 25 mg tab(s) (ANTIVERT) 25 mg ORAL TID PRN - dextrose 40 % 15 g 15 g ORAL PRN Or - glucagon 1 mg injection 1 mg INTRAMUSCULAR PRN Or - dextrose 50% in water 25 mL syringe 12.5 g INTRAVENOUS PRN - pantoprazole DR 40 mg tab(s) (PROTONIX) 40 mg ORAL DAILY (6 AM) - [START ON 04/25/2021] clopidogrel 75 mg tab(s) (PLAVIX) 75 mg ORAL DAILY - atorvastatin 80 mg tab(s) (LIPITOR) 80 mg ORAL/FEEDING TUBE AT BEDTIME - sodium chloride 0.9 % (flush) 2-10 mL (BD POSIFLUSH) 2-10 mL INTRAVENOUS DIRECTED PRN And - perflutren lipid microspheres 1.1 mg/mL 1.3 mL injection (DEFINITY) 1.3 mL INTRAVENOUS DIRECTED PRN Objective PHYSICAL EXAM: BP 157/71 Pulse 67 Temp (Src) 97.5 (Temporal) Resp 16 Ht 5' 9 (1.75m) Wt 224 lb 6.9 oz (101.8kg) SpO2 96% BMI 33.13 kg/(m2). O2 Therapy: Room Air Physical Exam Performed GENERAL: Alert, no distress, cooperative LUNGS: Lungs clear to auscultation, Good diaphragmatic excursion CARDIAC: Normal S1 and S2; no rubs, murmurs, or gallops ABDOMEN: Abdomen soft, non-tender, BS normal, EXTREMITIES: Extremities normal, no deformities, edema, clubbing or skin discoloration. NEURO: Gait not assessed. Reflexes normal and symmetric. Sensation grossly intact, Cranial nerves II-XII intact. Strength nml all 4 extremities. No ataxia by finger to nose or heel to santos. +nystagmus most pronounced to the right Lines, Drains, and Airways Line Peripheral 04/23/212112 Admission to Hospital Short Left Hand 22 Gauge <1 day Peripheral 04/23/212119 Short Right Arm 20 Gauge <1 day DATA: Diagnostic tests reviewed for today's visit: Most recent labs Most recent imaging Assessment/Plan Problem List Stroke (cerebrum) ([facility]) POA: Yes Type 2 diabetes mellitus ([facility]) POA: . Hypertension POA: . Obesity (BMI 30.0-34.9) POA: . Carotid artery stenosis POA: . HOSPITAL COURSE: Kamar Fountain is a 75 year old male presented with past medical history of HTN, diabetes, former smoker presents with dizziness and vertigo. 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 Primary differential considerations includes dissection versus thrombosis Moderate to severe calcified plaque of the left ICA bulb with approximately 60% stenosis. Moderate stenosis of the left nondominant vertebral artery origin and C5 foraminal segment. Principal Problem: Stroke (cerebrum) ([facility]) MRI with small acute infarct of left posterior/inferior frontal lobe Stroke protocol Start aspirin and plavix, high dose statin Neurology following Check Echo, lipid panel, HgA1c PT/OT Active Problems: Type 2 diabetes mellitus ([facility]) Metformin on hold, monitor sugars Hypertension Lisinopril/HCTZ and atenolol held per stroke protocol Will restart tomorrow Carotid artery stenosis Vascular surgery consulted. DAPT and statin Medication and Non-Pharmacologic VTE Prophylaxis/Anticoagulants Anticoagulant AND Antiplatelet Medications (From admission, onward) Start Dose Route Frequency Last Action Ordered Stop 04/25/21 0900 clopidogrel 75 mg tab(s) (PLAVIX) 75 mg ORAL DAILY Ordered 04/24/21 0915 05/15/21 0859 04/24/21 0900 aspirin 81 mg chewable tab(s) (aspirin non-enteric coated 81mg ORAL OR 300mg AL (more content not included)... [facility] Evaluation note Diagnosis Cerebrovascular accident (CVA), unspecified mechanism (HCC)- Primary Encounter for screening for cardiovascular disorders Screening for other and unspecified cardiovascular conditions Bilateral carotid artery stenosis Occlusion and stenosis of carotid artery without mention of cerebral infarction Primary hypertension Unspecified essential hypertension Abnormal ECG Nonspecific abnormal electrocardiogram (ECG) (EKG) Mixed hyperlipidemia [facility] Diagnosis Cerebrovascular accident (CVA), unspecified mechanism (HCC) Stenosis of left carotid artery Occlusion and stenosis of carotid artery without mention of cerebral infarction Occlusion of right carotid artery Occlusion and stenosis of carotid artery without mention of cerebral infarction Occlusion and stenosis of right carotid artery Occlusion and stenosis of carotid artery without mention of cerebral infarction [facility] Diagnosis Stenosis of left carotid artery- Primary Occlusion and stenosis of carotid artery without mention of cerebral infarction [facility] Diagnosis Bilateral carotid artery stenosis- Primary Occlusion and stenosis of carotid artery without mention of cerebral infarction Primary hypertension Unspecified essential hypertension [facility] Diagnosis Bilateral carotid artery stenosis- Primary Occlusion and stenosis of carotid artery without mention of cerebral infarction [facility] Outpatient Procedure (Routine) - Closed Specialty Diagnoses / Procedures Referred By Ted anderson Referred To Contact [facility] Diagnoses Cerebrovascular accident (CVA), unspecified mechanism (HCC) Bilateral carotid artery stenosis Primary hypertension Abnormal ECG Procedures ECG COMPLETE ECG ROUTINE ECG W/LEAST 12 LDS W/I&R Erickson Cast DO [address] [place] [id number] [facility] [place] [address] [place] [id number] Referral ID Status Reason Start Date Expiration Date V isits Requested Visits Authorized [id number] Closed Auto-Generate d Referral 10/19/2021 10/19/2022 1 1 [facility] for referral (narrative)* Outpatient Procedure (Routine) - Pending Review Specialty Diagnoses / Procedures Referred By Contac t Referred To Contact [facility] Diagnoses Cerebrovascular accident (CVA), unspecified mechanism (HCC) Occlusion and stenosis of right carotid artery Procedures US CAROTID ARTERIES MECHE VAS LAB DUPLEX SCAN EXTRACRANIAL ART COMPL BI STUDY Gabby Gama DO [address] [place] [address] [facility] [place] [address] [place] [address] Referral ID Status Reason Start Date Expiration Date Visits Requested Visits Authorized [id number] Pending Review Auto-Generat ed Referral 11/30/2021 11/30/2022 1 1 [facility] Summary Purpose Family History No Family History Records FoundNo Family History Records FoundNo Family History Records Found Advance Directives Documents on File Type Date Recorded Patient Direct Care Provider Expl anation Advance Directive(s) 04/23/2021 9:21 PM Additional Source Comments (unrecognized sect ion and content) No Status Records FoundNo Status Records FoundNo Status Records Found INFORMATION SOURCE (unrecogn ized section and content) DATE CREATED AUTHOR 09/20/2019 [employer] DATE CREATED AUTHOR AUTHOR'S ORGANIZ ATION 04/26/2021 [facility] DATE CREATED AUTHOR AUTHOR'S ORGANIZ ATION 05/06/2024 [facility] Source Comments (unrecognize d section and content) In the event this informatio n is protected by the Federal Confidentiality of Alcohol and Drug Abuse Patient Records regulations: The Federal rules restrict any use of the information to criminally investigate or prosecute any alcohol or drug abuse patient.[facility] the event this information is protected by the Federal Confidentiality of Alcohol and Drug Abuse Patient Records regulations: The Federal rules restrict any use of the information to criminally investigate or prosecute any alcohol or drug abuse patient.[facility] the event this information is protected by the Federal Confidentiality of Alcohol and Drug Abuse Patient Records regulations: The Federal rules restrict any use of the information to criminally investigate or prosecute any alcohol or drug abuse patient.[facility] the event this information is protected by the Federal Confidentiality of Alcohol and Drug Abuse Patient Records regulations: The Federal rules restrict any use of the information to criminally investigate or prosecute any alcohol or drug abuse patient.[facility] the event this information is protected by the Federal Confidentiality of Alcohol and Drug Abuse Patient Records regulations: The Federal rules restrict any use of the information to criminally investigate or prosecute any alcohol or drug abuse patient.[facility] Reason for Visit (unrecogniz ed section and content) Reason Comments CARD New Patient Consult no cardiac issu es Reason Comments Established Patient Specialty Diagnoses / Procedures Referred By Contac t Referred To Contact Vascular Surgery Diagnoses Cerebrovascular accident (CVA), unspecified mechanism (HCC) Stenosis of left carotid artery Occlusion of right carotid artery Procedures CONSULT TO VASCULAR SURGERY NEW PATIENT VISIT LEVEL 5 Kristi Bea APRN.PHYSICIAN NEONATOLOGY [address] [place] [address] Referral ID Status Reason Start Date Expiration Date V isits Requested Visits Authorized [id number] Closed PCP Requested Referral 07/28/2021 07/28/2022 1 1 Reason Comments Appointment Reason Comments Established Patient Care Teams (unrecognized sec tion and content) Loaf Counter Relationship Specialty Start Date End Date Claude Medina, MANAGER ENVIRONMENTAL HEALTH.PHYSICIAN NEONATOLOGY [address] [place], [place] [id number] PCP - General Family Practice 04/23/21 Loaf Counter Relationship Specialty Start Date End Date Claude Medina, MANAGER ENVIRONMENTAL HEALTH.PHYSICIAN NEONATOLOGY [address] [place] [address] PCP - General Family Practice 04/23/21 Loaf Counter Relationship Specialty Start Date End Date Claude Medina, MANAGER ENVIRONMENTAL HEALTH.PHYSICIAN NEONATOLOGY [address] [place] [address] PCP - General Family Medicine 04/23/21 Loaf Counter Relationship Specialty Start Date End Date Claude Medina, MANAGER ENVIRONMENTAL HEALTH.PHYSICIAN NEONATOLOGY [address] [place] [address] PCP - General Family Medicine 04/23/21 Loaf Counter Relationship Specialty Start Date End Date Claude Medina, MANAGER ENVIRONMENTAL HEALTH.PHYSICIAN NEONATOLOGY [address] [place] [address] PCP - General Family Medicine 04/23/21 FOR RECORDS PERTAINING TO PATIENTS WHO ARE OR HAVE BEEN ENROLLED IN A CHEMICAL DEPENDENCY/SUBSTANCEABUSE PROGRAM, SOME INFORMATION MAY BE OMITTED. This clinical summary was aggregated from multiple sources. Caution should be exercised in using it in the provision of clinical care. This summary normalizes information from multiple sources, and as a consequence, information in this document may materially change the coding, format and clinical context of patient data. In addition, data may be omitted in some cases. CLINICAL DECISIONS SHOULD BE BASED ON THE PRIMARY CLINICAL RECORDS. [facility] [employer] [facility]. provides no warranty or guarantee of the accuracy or completeness of information in this document.
--- OUTSIDE RECORDS SUMMARY | 2025-04-14 21:51 | XMS RPT_ITS | CCD ---
Author Organization [facility] Care Team Providers Care Data Specialist Name Role Phone Gorge Moore Unavailable Unavailable Claude Medina Unavailable Unavailable Stefano PUBLIC HEALTH REPRESENTATIVE.Claude LÓPEZ Primary Care Provide r Stefano PUBLIC HEALTH REPRESENTATIVE.Claude LÓPEZ Primary Care Provide r CLAUDE MEDINA Primary Care Unavailable GABBY GAMA Referring Unavailable GABBY GAMA Attending Unavailable CLAUDE MEDINA Primary Care Unavailable Stefano PUBLIC HEALTH REPRESENTATIVE.Claude LÓPEZ Primary Care Provide r Medications Current [...] mg by mouth twice daily with meals. Gyvxceqostjzx-Hrrsqtrm-J utein (CENTRUM SILVER) ORAL Tab (5 sources) take 1 tablet by mouth once daily Multivitamins-Chief Analytics Officer als-Lutein (CENTRUM SILVER) ORAL Tab Take 1 tablet by mouth once daily. Active take 1 tablet by zina th once daily Eeilfbyqtausk-Wxfjtuju-Wjmntm (CENTRUM S ILVER) ORAL Tab Take 1 tablet by mouth once daily. 0 Active Comment on above: Take 1 tablet by zina th once daily. Unrln-9-MBH-EPA-Fis h Oil (FISH OIL) 1,000 (120-180) mg cap (1 source) Start: 02-06-2024 take 2 capsules by mouth once daily Poqnm-9-HDX-EPA-Fis h Oil (FISH OIL) 1,000 (120-180) mg [...] CNOV Office Visit (VASSMD ) KAMAR FOUNTAIN ([id number]) 1945 M Date Time Provider Department 05/04/24 1:15 PM GABBY GAMA During your visit today, we recorded the following information about you: Pulse Blood pressure 83/minute 126/64 Gabby Gama DO 05/04/2024 2:19 PM Signed [facility] [place] DEPARTMENT OF VASCULAR SURGERY OUTPATIENT VISIT DATE May 04, 2024 OUTPATIENT VISIT TYPE ESTABLISHED SERVICE DATE: 05/04/2024 SERVICE TIME: 1:15 PM PRIMARY CARE PHYSICIAN: Claude Medina APRN.BEEF TAGGER HISTORY OF PRESENT ILLNESS: Mr. Fountain is a 78 year old male who presents today for a vascular surgery follow-up visit after carotid duplex. He denies any complaints. 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 - Jucub-6-JGQ-EPA-Fish Oil (FISH OIL) 1,000 (120-180) mg cap [...] ORAL T (more content not included)... Normal [facility] CAROTID ARTERIES MECHE VAS LABon 05-04-2024 US CAROTID ARTERIES MECHE VAS LAB Non-Invasive Vascular Laboratory [facility] Carotid Duplex Bilateral/Complete Date [...] physician: Juan Farah MD, RPVI Final CC [facility] Medical Image : [id number] ISUID See Link below for Image Normal [facility] Basic Metabolic Panlon 04-26 Anion gap [Moles/Vol] 8 mmol/L Low -18 [facility] Comment on above: Performed By: #### B MP, CBC ####[facility] [address] [place], [place] [phone] Calcium [Mass/Vol] 9.2 mg/dL Normal 8.5-10.2 [facility] Comment on above: Performed By: #### B MP, CBC ####[facility] [address] [place] [address] Chloride [Moles/Vol] 101 mmol/L Normal 97-105 [facility] Comment on above: Performed By: #### B MP, CBC ####[facility] [address] [place] [address] CO2 [Moles/Vol] 26 mmol/L Normal 22-30 [facility] Comment on above: Performed By: #### B MP, CBC ####[facility] [address] [place] [address] Creatinine [Mass/Vol] 0.88 mg/dL Normal 0.73-1.22 [facility] Comment on above: Performed By: #### B MP, CBC ####[facility] [address]relrm[address] [place] [address] eGFR- Amer. >[address] [facility] Comment on above: Performed By: #### B MP, CBC ####[facility] [address] [place] [address] eGFR-All Other Races >[address] [facility] Comment on above: Result Comment: eGFR [...] GFR. Performed By: #### B MP, CBC ####[facility] [address] [place] [address] Glucose [Mass/Vol] 111 mg/dL High 74-99 [facility] Comment on above: Result Comment: The [employer] Diabetes Association (ADA) provides guidance for cutoff [...] Standards of Medical Care in Diabetes 2016, [place] Diabetes Association. Diabetes Care. 2016.39(Suppl 1). Performed By: #### B MP, CBC ####[place] [address] Potassium [Moles/Vol] 3.9 mmol/L Normal 3.7-5.1 [facility] Comment on above: Performed By: #### B MP, CBC ####[place] [address] Sodium [Moles/Vol] 135 mmol/L Low 136-144 [facility] Comment on above: Performed By: #### B MP, CBC ####[place] [address] Urea nitrogen [Mass/Vol] 16 mg/dL Normal 9-24 [facility] Comment on above: Performed By: #### B MP, CBC ####[place] [address] CBCon 04-26-2021 Absolute nRBC <0.01 Normal <0.01 [facility] Comment on above: Performed By: #### B MP, CBC ####[place] [address] Erythrocyte distribution width (RBC) [Ratio] 12.5 % Normal 11.5-15.0 [facility] Comment on above: Performed By: #### B MP, CBC ####[place] [address] Hematocrit (Bld) [Volume fraction] 43.0 % Normal 39.0-51.0 [facility] Comment on above: Performed By: #### B MP, CBC ####[place] [address] Hemoglobin (Bld) [Mass/Vol] 14.9 g/dL Normal 13.0-17.0 [facility] Comment on above: Performed By: #### B MP, CBC ####[place] [phone] MCH 30.4 pG Normal 26.0-34.0 [facility] Comment on above: Performed By: #### B MP, CBC ####[facility] [address] [place], [place] [phone] MCHC (RBC) [Mass/Vol] 34.7 g/dL Normal 30.5-36.0 [facility] Comment on above: Performed By: #### B MP, CBC ####[facility] [address] [place], [place] [address] MCV (RBC) [Entitic vol] 87.8 fL Normal 80.0-100.0 [facility] Comment on above: Performed By: #### B MP, CBC ####[facility] [address] [place], [place] [address] Platelet mean volume (Bld) [Entitic vol] 11.3 fL Normal 9.0-12.7 [facility] Comment on above: Performed By: #### B MP, CBC ####[facility] [address] [place], [place] [address] Platelets (Bld) [#/Vol] 212 10*3/uL Normal 150-400 [facility] Comment on above: Performed By: #### B MP, CBC ####[facility] I[address] [place], [place] [address] RBC (Bld) [#/Vol] 4.90 10*6/uL Normal 4.20-6.00 [facility] Comment on above: Performed By: #### B MP, CBC ####[facility] [address] [place], [place] 240[address] WBC (Bld) [#/Vol] 8.25 10*3/uL Normal 3.70-11.00 [facility] Comment on above: Performed By: #### B MP, CBC ####[facility] [address] [place], [place] [phone] CNDSon 04-26-2021 CNDS HNO ID: [id number] Author: Jasmine Alcantara DO Service: Hospital Medicine [...] Provider: Jasmine Alcantara DO Consulting: MD Dr. Elizabeth Hirsch [place] REASON FOR HOSPITALIZATION: Acute Stroke DIAGNOSIS: [...] patient declined (more content not included)... Normal [facility] THERAPY NTon 04-26-2021 THERAPY NT HNO ID: [id number] Author: Suzanne Pierre OT/L Service: Occupational Therapy Author Type: Occupational Therapist Type: Therapy (PT/OT/Speech/Resp) Filed: 04/26/2021 10:19 AM Note Text: OCCUPATIONAL THERAPY MISSED VISIT SERVICE DATE: 04/26/2021 SERVICE TIME: 1018 to 1018 ROOM: [place] [address] Attempted Evaluation. Patient not seen due to No Skilled Needs. Pt reports no concerns with self care tasks at this time. Per RN, pt ready for d/c. Will discontinue OT order, please re-consult pending change in status. SIGNATURE: Suzanne Pierre OT/L PATIENT NAME: Kamar Fountain DATE: April 26, 2021 TIME: 10:18 AM [facility] ALLIED HEALTHon 04-25-2021 ALLIED HEALTH HNO ID: [id number] Author: DODIE Urlich Service: Radiology Author Type: Clinical Reserve Officer Type: Allied Health Filed: 04/25/2021 10:59 AM [...] DODIE Ulrich April 25, 2021 10:59 AM [facility] ASP/VINCENT Resist Panelon 04-25 ADP Max Aggreg 23 % Max Low 65-93 [facility] Comment on above: Performed By: #### A SPCLP ####[facility] [place], [place] [phone] Arach Max Aggreg 8 % Max Low 75-100 [facility] Comment on above: Performed By: #### A SPCLP ####[address] [phone] Interpretation (NOTE) Normal [facility] Comment on above: Result Comment: Perf [...] percent. These parameters were developed at the [facility] utilizing the assay and reagents performed on this patient's platelets. Moses OCASIO. Shayne Hutchinson. Diana OCASIO. Markie ROSEN. A prospective, blinded determination of the natural history of aspirin resistance among stable patients with cardiovascular disease. Journal of the [place] College of Cardiology. 41(6):961-5, 2002. There is [...] medication history. Performed By: #### A SPCLP ####[facility] [address] [place], [place] [phone] Basic Metabolic Panlon 04-25 Anion gap [Moles/Vol] 9 mmol/L Normal 9-18 [facility] Comment on above: Performed By: #### B MP, CBC ####[facility] [address] [place] [address] Calcium [Mass/Vol] 9.3 mg/dL Normal 8.5-10.2 [facility] Comment on above: Performed By: #### B MP, CBC ####[facility] Ilwuspvbsa8220 [address] Chloride [Moles/Vol] 101 mmol/L Normal 97-105 [facility] Comment on above: Performed By: #### B MP, CBC ####[facility] Sldufoojgy1619 [address] CO2 [Moles/Vol] 29 mmol/L Normal 22-30 [facility] Comment on above: Performed By: #### B MP, CBC ####[facility] Nbjmracwgt9719 [address] Creatinine [Mass/Vol] 0.95 mg/dL Normal 0.73-1.22 [facility] Comment on above: Performed By: #### B MP, CBC ####[facility] [address] [place] [address] eGFR- Amer. >[address] [facility] Comment on above: Performed By: #### B MP, CBC ####[facility] [address] [place] [address] eGFR-All Other Races >[address] [facility] Comment on above: Result Comment: eGFR [...] GFR. Performed By: #### B MP, CBC ####[facility] [address] [place] [address] Glucose [Mass/Vol] 116 mg/dL High 74-99 [facility] Comment on above: Result Comment: The [employer] Diabetes Association (ADA) provides guidance for cutoff [...] Standards of Medical Care in Diabetes 2016, [place] Diabetes Association. Diabetes Care. 2016.39(Suppl 1). Performed By: #### B MP, CBC ####[facility] Hittzbwhgy4247 [address] Potassium [Moles/Vol] 4.0 mmol/L Normal 3.7-5.1 [facility] Comment on above: Performed By: #### B MP, CBC ####[facility] Kngnhnrvft3164 [address] Sodium [Moles/Vol] 139 mmol/L Normal 136-144 [facility] Comment on above: Performed By: #### B MP, CBC ####[facility] [address] [place] [address] Urea nitrogen [Mass/Vol] 15 mg/dL Normal 9-24 [facility] Comment on above: Performed By: #### B MP, CBC ####[facility] [address] [place] [address] CBCon 04-25-2021 Absolute nRBC <0.01 Normal <0.01 [facility] Comment on above: Performed By: #### B MP, CBC ####[facility] [address] [place] [address] Erythrocyte distribution width (RBC) [Ratio] 12.8 % Normal 11.5-15.0 [facility] Comment on above: Performed By: #### B MP, CBC ####[place] [address] Hematocrit (Bld) [Volume fraction] 44.3 % Normal 39.0-51.0 [facility] Comment on above: Performed By: #### B MP, CBC ####[place] [address] Hemoglobin (Bld) [Mass/Vol] 15.2 g/dL Normal 13.0-17.0 [facility] Comment on above: Performed By: #### B MP, CBC ####[place] [address] MCH 30.3 pG Normal 26.0-34.0 [facility] Comment on above: Performed By: #### B MP, CBC ####[facility] [address] [place] [address] MCHC (RBC) [Mass/Vol] 34.3 g/dL Normal 30.5-36.0 [facility] Comment on above: Performed By: #### B MP, CBC ####[place] [address] MCV (RBC) [Entitic vol] 88.2 fL Normal 80.0-100.0 [facility] Comment on above: Performed By: #### B MP, CBC ####[facility] [address] [place] [address] Platelet mean volume (Bld) [Entitic vol] 10.9 fL Normal 9.0-12.7 [facility] Comment on above: Performed By: #### B MP, CBC ####[facility] Mecvadwpfi9374 [phone] Platelets (Bld) [#/Vol] 203 10*3/uL Normal 150-400 [facility] Comment on above: Performed By: #### B MP, CBC ####[facility] Sevvgoiafi9027 [phone] RBC (Bld) [#/Vol] 5.02 10*6/uL Normal 4.20-6.00 [facility] Comment on above: Performed By: #### B MP, CBC ####[facility] [address] [place], [place] [phone] WBC (Bld) [#/Vol] 8.85 10*3/uL Normal 3.70-11.00 [facility] Comment on above: Performed By: #### B MP, CBC ####[facility] [address] [place], [place] [phone] CONSULT PROGon 04-25-2021 CONSULT PROG HNO ID: [id number] Author: Sherrie Castano MD Service: Neurology General Author Type: Physician Type: Consult Progress Note Filed: 04/25/2021 4:55 PM Note Text: [facility] TeleNeurology Consult Note Patient seen using Teleneurology Services. Recommendations are placed in the chart. Please review. For questions after hours, when teleneurologist is not available, for LEOMINSTER: Please Page [phone] for the [facility] from 12pm to 8Am Admitting [...] tremor. No asterixis. Finger-to- nose-finger intact bilaterally Glbs-lp-mlme intact bilaterally. ? Sensory: Intact to light [...] 137 04/24/2021 (more content not included)... Normal [facility] CONSULT PROG HNO ID: [id number] Author: Sherrie Castano MD Service: Neurology General Author Type: Physician Type: Consult Progress Note Filed: 04/25/2021 2:39 PM Note Text: [facility] TeleNeurology Consult Note Patient seen using [facility]. Recommendations are placed in the chart. Please review. For questions after hours, when teleneurologist is not available, for LEOMINSTER: Please Page [phone] for the [facility] Neurology Group from 12pm to 8Am Admitting [...] tremor. No asterixis. Finger-to- nose-finger intact bilaterally Yuyo-jj-nzxb intact bilaterally. ? Sensory: Intact to light [...] 137 04/24/2021 (more content not included)... Normal [facility] Lipid Panel, [place] 021 Cholesterol [Mass/Vol] 184 mg/dL Normal <200 [facility] Comment on above: Performed By: #### L IPB ####[facility] Ueobepmmjr5047 [address] Cholesterol in HDL [Mass/Vol] 35 mg/dL Low >39 [facility] Comment on above: Performed By: #### L IPB ####[facility] Ipxsvaekse8441 [address] Cholesterol in LDL [Mass/Vol] 93 mg/dL Normal <100 [facility] Comment on above: Performed By: #### L IPB ####[facility] Zawfjpawki1657 [address] Fasting Time Unknown Normal [facility] Comment on above: Performed By: #### L IPB ####[facility] Yydtmvrblq6995 [address] LDL:HDL Ratio 2.66 High <2.54 [facility] Comment on above: Result Comment: Refe rence: 1. National Cholesterol Education Program ATP III Guideline At-A-Glance Quick Desk Reference: National Heart, Lung, and Blood [place]. National Institutes of Health. 2001: NIH Publication No. 01-3305. 2. An International Atherosclerosis Society position paper: global recommendations for the management of dyslipidemia: executive summary, Atherosclerosis. 2014: 232(2):410-413. Performed By: #### L IPB ####[facility] [address] [place] [address] Non HDL Cholesterol 149 mg/dL High <130 [facility] Comment on above: Performed By: #### L IPB ####[facility] Oedrinwbgf3525 [address]721[address] TC:HDL Ratio 5.26 [address] <[address]10 [facility] Comment on above: Performed By: #### L IPB ####[facility] Crnesjkyrj2717 [address] Triglyceride [Mass/Vol] 280 mg/dL High <150 [facility] Comment on above: Performed By: #### L IPB ####[facility] [address] [place] [address] VLDL Cholesterol 56 mg/dL High <30 [facility] Comment on above: Performed By: #### L IPB ####[facility] [address] [place] [address] THERAPY NTon 04-25-2021 THERAPY NT HNO ID: [id number] Author: Princess Sher, PT Service: Physical Therapy Author Type: Physical Therapist Type: Therapy (PT/OT/Speech/Resp) Filed: 04/25/2021 2:13 PM Note Text: Physical Therapy Evaluation SERVICE DATE: 04/25/2021 SERVICE TIME: 1116 to 1158 ROOM: [place] [address] Recommended Discharge Disposition: Outpatient Physical Therapy Recommended [...] Unsteadiness on feet Interventions Provided: Evaluation;Therapeutic Activity (67373);Gait Training (65931) $ Evaluation-Low (28759) Billed Units: 1 unit Therapeutic Activity (21452) Treatment Minutes: 15 $ Therapeutic Activity (46756) Billed Units: 1 unit Gait Training (38830) Treatment Minutes: 10 $ Gait Training (86344) Billed Units: 1 unit Training AND education provided in: Anatomy and impact on deficits, Assistive device use, Benefits of in-hospital mobility, Curb step navigation, Discharge planning, Disease specific education, Equipment, Expected function (more content not included)... [facility] THERAPY NT HNO ID: [id number] Author: Princess Sher PT Service: Physical Therapy Author Type: Physical Therapist Type: Therapy (PT/OT/Speech/Resp) Filed: 04/25/2021 9:56 AM Note Text: PHYSICAL THERAPY MISSED VISIT SERVICE DATE: 04/25/2021 SERVICE TIME: 0950 to 0950 ROOM: [place] [address] ([facility]) Attempted Evaluation. Patient not seen due to Test/Procedure (echo). SIGNATURE: Princess Sher PT PATIENT NAME: Kamar Fountain DATE: April 25, 2021 TIME: 9:56 AM [facility] US CAROTID BILon 04-25-2021 US CAROTID MECHE [...] formation distal common proximal internal carotid arteries. Monotypist: PSCB Transcribe Date/Time: Apr 25 2021 11:29A Dictated by : AUNDREA THAO DO This examination was interpreted and the report reviewed and electronically signed by: AUNDREA THAO DO on Apr 25 2021 11:33AM EST [id number] [facility] [facility] HNO ID: [id number] Author: DODIE Chavez Service: Radiology Author Type: Clinical Reserve Officer Type: [facility] Filed: 04/24/2021 12:20 PM Note Text: [...] DODIE Chavez April 24, 2021 12:20 PM [facility] HNO ID: [id number] Author: DODIE Neely Service: Radiology Author Type: Clinical Reserve Officer Type: [facility] Filed: 04/23/2021 10:38 PM Note Text: [...] PERIPHERAL IV DATA: Inpatient - refer to [facility] documentation RADIOLOGY DEPARTMENT: CT; Exam(s) Completed: CTA Brain and CTA Neck SIGNATURE: DODIE Neely PATIENT NAME: Kamar Fountain DATE: April 23, 2021 TIME: 10:[address] [facility] APC Resistanceon 04-24-2021 APC Resistance 2.52 Ratio Normal >1.96 [facility] Comment on above: Result Comment: The specimen was treated with heparinase to remove heparin activity from the plasma. No resistance to Activated Protein C was identified in a functional test. The Factor V Leiden mutation is unlikely. This does not exclude other causes for the hypercoagulable state. Performed By: #### F VIIIC, PRCFUN, AT3ASY, PRSCLT, APC, STACLT ####[facility] [place], [place] [phone]#### HYPER ####[place] [phone] Comment Test Not Indicated Normal [facility] Comment on above: Performed By: #### F VIIIC, PRCFUN, AT3ASY, PRSCLT, APC, STACLT ####[place] [phone]#### HYPER ####[place] [phone] APTTon 04-24-2021 aPTT Coag (Bld) [Time] 23.6 s Normal 23.0-32.4 [facility] Comment on above: Result Comment: Unfr [...] laboratory APTT reagent in use throughout the [facility]. Performed By: #### H SCRP, PROCAL, HBA1C ####[place] [phone]#### PT, CBCDIF, PTT, CK ####[place] [address] Antithrombin Assayon 021 Antithrombin Assay 92 % Normal 84-138 [facility] Comment on above: Performed By: #### F VIIIC, PRCFUN, AT3ASY, PRSCLT, APC, STACLT ####[place] [phone]#### HYPER ####[address] X[address]yk[address]amtq3979 José Miguel [place], [place] [phone] CASE MGT INIT Tone 2020 CASE MGT INIT LEON HNO ID: [id number] Author: Veronica Messina RN Service: ? Author Type: Registered Nurse Type: Care Mgt Initial Assessment Filed: 04/24/2021 2:22 PM Note Text: CARE MANAGEMENT: ASSESSMENT AND DISCHARGE PLAN SERVICE DATE: April 24, 2021 SERVICE TIME: 2:12 PM network director spoke with patient to complete Care Management Assessment. Introduction made and role of Care Management explained. 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 Last discharge within 30 days: No Advance Directive: Current Advance Directive: None Projection Printer Attempted to Assist with AD Completion: Yes [...] Cane;Glucometer Has the Patient Been in a Senior Living Facility in the Past 30 days?: No Patient states only uses cane as needed. Not on a regular basis. Patient states he does not require any assistance prior to admission. . Drives himself. 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 No Is Patient Psychosocially Complex?: No ASSESSMENT AND PLAN: Medical Needs: Medical Needs: Two or more chronic diseases Psychosocial Needs: Psychosocial Needs: None FREEDOM OF CHOICE EXPLAINED: Mccloud of Choice Given: No (No skilled service [...] 24, 2021 TIME: 2:08 PM PAGER/CONTACT #: [phone] [facility] CBC and Differentialon 04-24 Abs Baso <0.03 Normal <0.11 [facility] Comment on above: Performed By: #### H SCRP, PROCAL, HBA1C ####[facility] [address] [place], [place] [phone]#### PT, CBCDIF, PTT, CK ####[facility] [address] [place] [address] Abs Eosin <0.03 [address] <[address]46 [facility] Comment on above: Performed By: #### H SCRP, PROCAL, HBA1C ####[place] [address]#### PT, CBCDIF, PTT, CK ####[place] [address] Abs [place] 0.66 k/uL Normal <0.87 [facility] Comment on above: Performed By: #### H SCRP, PROCAL, HBA1C ####[place] [address]#### PT, CBCDIF, PTT, CK ####[place] [address] Abs Neut 11.13 k/uL High 1.45-7.50 [facility] [facility] Comment on above: Performed By: #### H SCRP, PROCAL, HBA1C ####[place] [address]#### PT, CBCDIF, PTT, CK ####[place] [address] Absolute nRBC <0.01 Normal <0.01 [facility] Comment on above: Performed By: #### H SCRP, PROCAL, HBA1C ####[place] [address]#### PT, CBCDIF, PTT, CK ####[place] [address] Basophils/100 WBC (Bld) 0.1 % Normal [facility] Comment on above: Performed By: #### H SCRP, PROCAL, HBA1C ####[place] [phone]#### PT, CBCDIF, PTT, CK ####[place] [address] DTYPE Auto Diff Normal [facility] Comment on above: Performed By: #### H SCRP, PROCAL, HBA1C ####[place] [address] [address] [place] [phone]#### PT, CBCDIF, PTT, CK ####[place] [address] Eosinophils/100 WBC (Bld) 0.0 % Normal [facility] Comment on above: Performed By: #### H SCRP, PROCAL, HBA1C ####[place] [address] [address] [place] [phone]#### PT, CBCDIF, PTT, CK ####[place] [address] Erythrocyte distribution width (RBC) [Ratio] 12.9 % Normal 11.5-15.0 [facility] Comment on above: Performed By: #### H SCRP, PROCAL, HBA1C ####[place] [address] [address] [place] [phone]#### PT, CBCDIF, PTT, CK ####[place] [address] Hematocrit (Bld) [Volume fraction] 44.2 % Normal 39.0-51.0 [facility] Comment on above: Performed By: #### H SCRP, PROCAL, HBA1C ####[place] [address] [address] [place] [phone]#### PT, CBCDIF, PTT, CK ####[place] [address] Hemoglobin (Bld) [Mass/Vol] 15.0 g/dL Normal 13.0-17.0 [facility] Comment on above: Performed By: #### H SCRP, PROCAL, HBA1C ####[place] [address] [address] [place] [phone]#### PT, CBCDIF, PTT, CK ####[place] [address] Lymphocytes (Bld) [#/Vol] 1.64 10*3/uL Normal 1.00-4.00 [facility] Comment on above: Performed By: #### H SCRP, PROCAL, HBA1C ####[place] [address] [address] [place] [phone]#### PT, CBCDIF, PTT, CK ####[place] [address] Lymphocytes/100 WBC (Bld) 12.2 % Normal [facility] Comment on above: Performed By: #### H SCRP, PROCAL, HBA1C ####[place] [phone]#### PT, CBCDIF, PTT, CK ####[place] [address] MCH 30.2 pG Normal 26.0-34.0 [facility] Comment on above: Performed By: #### H SCRP, PROCAL, HBA1C ####[place] [phone]#### PT, CBCDIF, PTT, CK ####[place] [address] MCHC (RBC) [Mass/Vol] 33.9 g/dL Normal 30.5-36.0 [facility] Comment on above: Performed By: #### H SCRP, PROCAL, HBA1C ####[place] [address] [address] [place] [phone]#### PT, CBCDIF, PTT, CK ####[place] [address] MCV (RBC) [Entitic vol] 89.1 fL Normal 80.0-100.0 [facility] Comment on above: Performed By: #### H SCRP, PROCAL, HBA1C ####[address] [phone]#### PT, CBCDIF, PTT, CK ####[facility] [address] [place] [address] Monocytes/100 WBC (Bld) 4.9 % Normal [facility] Comment on above: Performed By: #### H SCRP, PROCAL, HBA1C ####[place] [address] [phone]#### PT, CBCDIF, PTT, CK ####[place] [address] Neutrophils/100 WBC (Bld) 82.8 % Normal [facility] Comment on above: Performed By: #### H SCRP, PROCAL, HBA1C ####[place] [address] [address] [place] [phone]#### PT, CBCDIF, PTT, CK ####[place] [address] NRBCs 0.0 /[address] [facility] Comment on above: Performed By: #### H SCRP, PROCAL, HBA1C ####[place] [address] [address] [place] [phone]#### PT, CBCDIF, PTT, CK ####[place] [address] Platelet mean volume (Bld) [Entitic vol] 11.4 fL Normal 9.0-12.7 [facility] Comment on above: Performed By: #### H SCRP, PROCAL, HBA1C ####[place] [address] [phone]#### PT, CBCDIF, PTT, CK ####[place] [address] Platelets (Bld) [#/Vol] 247 10*3/uL Normal 150-400 [facility] Comment on above: Performed By: #### H SCRP, PROCAL, HBA1C ####[place] [address] [address] [place] [phone]#### PT, CBCDIF, PTT, CK ####[place] [address] [place] [phone] RBC (Bld) [#/Vol] 4.96 10*6/uL Normal 4.20-6.00 [facility] Comment on above: Performed By: #### H SCRP, PROCAL, HBA1C ####[place] [phone]#### PT, CBCDIF, PTT, CK ####[facility] [address] [place], [place] [phone] WBC (Bld) [#/Vol] 13.44 10*3/uL High 3.70-11.00 [facility] Comment on above: Performed By: #### H SCRP, PROCAL, HBA1C ####[place] [phone]#### PT, CBCDIF, PTT, CK ####[facility] [address] [place] [address] CKon 04-24-2021 CK [Catalytic activity/Vol] 123 U/L Normal 51-298 [facility] Comment on above: Performed By: #### H SCRP, PROCAL, HBA1C ####[place] [phone]#### PT, CBCDIF, PTT, CK ####[facility] [address] [place] [address] CONSULTon 04-24-2021 CONSULT HNO ID: [id number] Author: Robert Quiles MD Service: Vascular Surgery [...] after waking up from a nap following latter day attendance. He notes the dizziness has somewhat [...] (aspirin non-enteric coated 81mg ORAL OR 300mg MN) 81 mg PO/FT DAILY Given, 04/24 95604/24/21537 -- 04/24/21599 enoxaparin 40 mg injection (LOVENOX) (Medical Risk Categories) 40 mg SUBCUTANEOUS EVERY 24 HOURS Given, 04/24 60304/24/21537 -- 04/24/21599 activity - mobilize patient (pa,[place]) ALLERGIES No Known Allergies COMPLETE REVIEW OF [...] % ? ? (more content not included)... [facility] CONSULT HNO ID: [id number] Author: Sherrie Castano MD Service: Neurology General Author Type: Physician Type: Consults Filed: 04/24/2021 9:30 AM Note Text: [facility] TeleNeurology Consult Note Patient seen using Tel[facility]rology Services. Recommendations are placed in the chart. Please review. For questions after hours, when teleneurologist is not available, for LEOMINSTER: Please Page [phone] for the [facility] from 12pm to 8Am Admitting [...] contrast (radiology procedure) INTRAVENOUS DIRECTED PRN Erickson Almodovar MD PAST MEDICAL HISTORY Diagnosis Date - [...] vomiting, or (more content not included)... Normal [facility] CTA HEAD W IVCONon 1 CTA HEAD W IVCON * * *Final Report* * * DATE OF EXAM: Apr 23 2021 10:36PM [facility] [place] HEAD W IVCON / [...] discussed with also brought at 12:00 AM Monotypist: EFRAIN Transcribe Date/Time: Apr 23 2021 11:42P Dictated by : MARIAM PIMENTEL MD This examination was interpreted and the report reviewed and electronically signed by: MARIAM PIMENTEL MD on Apr 24 2021 12:03AM EST [id number] [facility] CTA NECK W IVCONon CTA NECK W IVCON * * *Final Report* * * DATE OF EXAM: Apr 23 2021 10:36PM [facility] [place] CTA NECK W IVCON / [...] discussed with also brought at 12:00 AM Monotypist: EFRAIN Transcribe Date/Time: Apr 23 2021 11:42P Dictated by : MARIAM PIMENTEL MD This examination was interpreted and the report reviewed and electronically signed by: MARIAM PIMENTEL MD on Apr 24 2021 12:03AM EST [id number] Normal [facility] Comp Metabolic Panelon 04-24 Albumin [Mass/Vol] 4.2 g/dL Normal 3.9-4.9 [facility] Comment on above: Performed By: #### C MP ####[facility] [address] [place] [address] ALP [Catalytic activity/Vol] 70 U/L Normal 38-113 [facility] Comment on above: Performed By: #### C MP ####[facility] [address] [place] [address] ALT [Catalytic activity/Vol] 23 U/L Normal 10-54 [facility] Comment on above: Performed By: #### C MP ####[facility] [address] [place] [address] Anion gap [Moles/Vol] 11 mmol/L Normal 9-18 [facility] Comment on above: Performed By: #### C MP ####[facility] [address] [place] [address] AST [Catalytic activity/Vol] 19 U/L Normal 14-40 [facility] Comment on above: Performed By: #### C MP ####[facility] [address] [place] [address] Bilirubin [Mass/Vol] 0.5 mg/dL Normal 0.2-1.3 [facility] Comment on above: Performed By: #### C MP ####[facility] [address] [place] [address] Calcium [Mass/Vol] 9.0 mg/dL Normal 8.5-10.2 [facility] Comment on above: Performed By: #### C MP ####[facility] [address] [place] [address] Chloride [Moles/Vol] 99 mmol/L Normal 97-105 [facility] Comment on above: Performed By: #### C MP ####[facility] [address] [place] [address] CO2 [Moles/Vol] 28 mmol/L Normal 22-30 [facility] Comment on above: Performed By: #### C MP ####[facility] [address] [place] [address] Creatinine [Mass/Vol] 0.89 mg/dL Normal 0.73-1.22 [facility] Comment on above: Performed By: #### C MP ####[facility] [address] [place] [address] eGFR- Amer. >[address] [facility] Comment on above: Performed By: #### C MP ####[facility] [address] [place] [address] eGFR-All Other Races >[address] [facility] Comment on above: Result Comment: eGFR [...] actual GFR. Performed By: #### C MP ####[facility] [address] [place] [address] Glucose [Mass/Vol] 137 mg/dL High 74-99 [facility] Comment on above: Result Comment: The [place] Diabetes Association (ADA) provides guidance for cutoff [...] Standards of Medical Care in Diabetes 2016, [place] Diabetes Association. Diabetes Care. 2016.39(Suppl 1). Performed By: #### C MP ####[facility] [address] [place] [address] Potassium [Moles/Vol] 4.3 mmol/L Normal 3.7-5.1 [facility] Comment on above: Performed By: #### C MP ####[facility] [address] [place] [address] Protein [Mass/Vol] 6.5 g/dL Normal 6.3-8.0 [facility] Comment on above: Performed By: #### C MP ####[facility] [address] [place] [address] Sodium [Moles/Vol] 138 mmol/L Normal 136-144 [facility] Comment on above: Performed By: #### C MP ####[facility] [address] [place] [address] Urea nitrogen [Mass/Vol] 16 mg/dL Normal 9-24 [facility] Comment on above: Performed By: #### C MP ####[facility] [address] [place] [address] ED NOTEon 04-24-2021 ED NOTE HNO ID: [id number] Author: Akosua Elder RN Service: ? Author Type: Registered Nurse Type: ED Notes Filed: 04/24/2021 3:05 AM Note Text: admitting dr in room to see pt. [facility] ED NOTE HNO ID: [id number] Author: Akosua Elder RN Service: ? Author Type: Registered Nurse Type: ED Notes Filed: 04/24/2021 2:09 AM Note Text: pt and update on bed assignment. delay . is going home. pt given pillow and bed lowered for comfort. call [facility] within reach. [facility] ED NOTE HNO ID: [id number] Author: Nettie Jacobsen RN Service: ? Author Type: Registered Nurse Type: ED Notes Filed: 04/24/2021 1:24 AM Note Text: Pt report was given to Akosua AVENDANO [facility] ED NOTE HNO ID: [id number] Author: Nettie Jacobsen RN Service: ? Author Type: Registered Nurse Type: ED Notes Filed: 04/24/2021 12:04 AM Note Text: Dr Scooby is bedside [facility] LUIGI Antibody Panelon 10-04-2 021 Centromere <0.2 Normal <1.0 [facility] Comment on above: Result Comment: NEGA TIVE Negative: <1.0 AI Positive: >0.9 AI Test performed using the Multiplex Flow Immunoassay technology. Performed By: #### E NAID ####[address] [phone] Chromatin Antibody 0.2 AI Normal <1.0 [facility] Comment on above: Result Comment: NEGA TIVE Negative: <1.0 AI Positive: >0.9 AI Test performed using the Multiplex Flow Immunoassay technology. Performed By: #### E NAID ####[place] [address] [address], [place] [phone] STEPHANI 1 Antibody <0.2 [address] <1.0 [facility] Comment on above: Result Comment: NEGA TIVE Negative: <1.0 AI Positive: >0.9 AI Test performed using the Multiplex Flow Immunoassay technology. Performed By: #### E NAID ####[address] [place], [place] [phone] Ribosomal MARKETING PRODUCTION COORDINATOR <0.2 [address] <[address]0 [facility] Comment on above: Result Comment: NEGA TIVE Negative: <1.0 AI Positive: >0.9 AI Test performed using the Multiplex Flow Immunoassay technology. Performed By: #### E NAID ####[address] [phone] MARKETING PRODUCTION COORDINATOR Antibody 0.2 AI Normal <1.0 [facility] Comment on above: Result Comment: NEGA TIVE Negative: <1.0 AI Positive: >0.9 AI Test performed using the Multiplex Flow Immunoassay technology. Performed By: #### E NAID ####[place] [address] [address], [place] [phone] Scleroderma IgG Ab <0.2 Normal <1.0 [facility] Comment on above: Result Comment: NEGA TIVE Negative: <1.0 AI Positive: >0.9 AI Test performed using the Multiplex Flow Immunoassay technology. Performed By: #### E NAID ####[address] [phone] Sm Antibody <0.2 [address] <1.0 [facility] Comment on above: Result Comment: NEGA TIVE Negative: <1.0 AI Positive: >0.9 AI Test performed using the Multiplex Flow Immunoassay technology. Performed By: #### E NAID ####[place] [phone] SSA Antibody <0.2 Normal <1.0 [facility] Comment on above: Result Comment: NEGA TIVE Negative: <1.0 AI Positive: >0.9 AI Test performed using the Multiplex Flow Immunoassay technology. Performed By: #### E NAID ####[address] [phone] SSB Antibody <0.2 [address] <1.0 [facility] Comment on above: Result Comment: NEGA TIVE Negative: <1.0 AI Positive: >0.9 AI Test performed using the Multiplex Flow Immunoassay technology. Performed By: #### E NAID ####[place] [phone] Expedited [id number] 04-24-20 SARS-CoV-2 (COVID-19) RNA MARYLU+probe Ql (Unsp spec) UPPER RESPIRATORY TRACT SWAB Normal [facility] Comment on above: Performed By: #### E XCOVD ####[address] SARS-CoV-2 (COVID-19) RNA MARYLU+probe Ql (Unsp spec) Negative for COVID19 (SARS CoV2) by RT-PCR or equivalent method. Normal Negative for COVID19 (SARS CoV2) by RT-PCR or equivalent method. [facility] Comment on above: Result Comment: This test has been authorized by FDA under an Emergency Use Authorization (EUA). Performed By: #### E XCOVD ####[address] Factor VIII:C Assayon 2020 Factor VIII:C Assay 249 % High 50-173 [facility] Comment on above: Result Comment: The [...] F VIIIC, PRCFUN, AT3ASY, PRSCLT, APC, STACLT ####[facility] [address] [place] [address] [phone]#### HYPER ####[facility] [address] [place], [place] [phone] [phone] HISTORY PHYSICALon HISTORY PHYSICAL HNO ID: [id number] Author: Gina Lopez MD Service: Hospital Medicine Author Type: Physician Type: HANDP Filed: 04/24/2021 5:47 AM Note Text: DEPARTMENT OF HOSPITAL MEDICINE HISTORY AND PHYSICAL EXAM SERVICE DATE: 04/24/2021 Code Status: Not on file SERVICE TIME: 3:50 AM Primary Care Physician: Claude Medina APRN.[facility] NIGHT AND WEEKEND COVERAGE: [place] COVERAGE: Days: [phone], please page attending physician. Nights: [phone], please page [place] [facility] Night coverage pager [phone]. Subjective CHIEF COMPLAINT: Dizziness HPI: This is [...] Power 5/5 all limbs. Sensation grossly intact. Pdlets-sv-iqiw test and zaut-lo-abhj test within normal range. Gait not assessed. [...] Electrolyte replacement (more content not included)... Normal [facility] Hemoglobin A1con 04-24-2021 Glucose [Mass/Vol] 157 mg/dL Normal [facility] Comment on above: Result Comment: eAG: (Estimated average glucose) is a calculated value from HgbA1c and is entry level account representative of the average blood glucose level in the last 2-3 month period. Performed By: #### H SCRP, PROCAL, HBA1C ####[facility] [address] [place], [place] [phone]#### PT, CBCDIF, PTT, CK ####[facility] Itxkbrhjjh8514 [phone] HbA1c (Bld) [Mass fraction] 7.1 % High 4.3-5.6 [facility] Comment on above: Result Comment: Amer ican Diabetes Association guidelines indicate that patients with HgbA1c in the range 5.7-6.4% are at increased risk for development of diabetes, and intervention by lifestyle modification may be beneficial. HgbA1c greater or equal to 6.5% is considered diagnostic of diabetes. Performed By: #### H SCRP, PROCAL, HBA1C ####[place] [address] [address] [place] [phone]#### PT, CBCDIF, PTT, CK ####[address] Neuon 1 Hex Phase Confirm 37.9 sec Normal 34.2-47.9 [facility] Comment on above: Performed By: #### F VIIIC, PRCFUN, AT3ASY, PRSCLT, APC, STACLT ####[place] [address] [address] [place] [phone]#### HYPER ####[address] [place], [place] [address]d [phone] Hex Phase Delta 0.6 delta sec Normal <7.1 [facility] Comment on above: Performed By: #### F VIIIC, PRCFUN, AT3ASY, PRSCLT, APC, STACLT ####[place] [phone]#### HYPER ####[address] [address] [place] [address] [place] [phone] Hex Phase Screen 38.5 sec Normal 34.0-51.8 [facility] Comment on above: Performed By: #### F VIIIC, PRCFUN, AT3ASY, PRSCLT, APC, STACLT ####[address] [place] [phone]#### HYPER ####[address] [address] [place] [address] [place] [phone] Hypercoag Diag Pnlon 021 aPTT Coag (Bld) [Time] 25.6 s Normal 23.0-32.4 [facility] Comment on above: Result Comment: Unfr [...] laboratory APTT reagent in use throughout the [facility]. Performed By: #### F VIIIC, PRCFUN, AT3ASY, PRSCLT, APC, STACLT ####[place] [phone]#### HYPER ####[place] [address] [address] [place] [phone] aPTT Coag (Bld) [Time] 28.0 s Normal 24.0-35.1 [facility] Comment on above: Performed By: #### F VIIIC, PRCFUN, AT3ASY, PRSCLT, APC, STACLT ####[address] [place] [phone]#### HYPER ####[place] [address] [address] [place] [phone] CRP [Mass/Vol] mg/L Normal <0.9 [facility] Comment on above: Performed By: #### F VIIIC, PRCFUN, AT3ASY, PRSCLT, APC, STACLT ####[place] [address] [address] [place] [phone]#### HYPER ####[place] [phone] [address] [address] [place] [phone] Fibrinogen 270 mg/dL Normal 200-400 [facility] Comment on above: Performed By: #### F VIIIC, PRCFUN, AT3ASY, PRSCLT, APC, STACLT ####[address] [place] [address]#### HYPER ####[place] [address] Homocysteine 5.8 umol/L Normal <15.1 [facility] Comment on above: Performed By: #### F VIIIC, PRCFUN, AT3ASY, PRSCLT, APC, STACLT ####[place] [address]#### HYPER ####[place] [address] IgA Cardiolipin Ab. <9.0 Normal <12.0 [facility] Comment on above: Result Comment: Nega tive: <12.0 APL Indeterminate: 12.0-20.0 APL Positive: >20.0 APL The following results were obtained with an [employer] QUANTA Lite MANDO IgA III CASTRO. Cardiolipin IgA values obtained with different manufacturers' assay methods may not be used interchangeably. The magnitude of the reported IgA levels cannot be correlated to an endpoint titer. Performed By: #### F VIIIC, PRCFUN, AT3ASY, PRSCLT, APC, STACLT ####[place] [address]#### HYPER ####[place] [address] [address] [place] [address] IgG Cardiolipin Ab. <9.0 Normal <15.0 [facility] Comment on above: Result Comment: Nega [...] F VIIIC, PRCFUN, AT3ASY, PRSCLT, APC, STACLT ####[address] [place] [phone]#### HYPER ####[place] [address] IgM Cardiolipin Ab. <9.0 Normal <12.5 [facility] Comment on above: Result Comment: Nega [...] F VIIIC, PRCFUN, AT3ASY, PRSCLT, APC, STACLT ####[place] [phone]#### HYPER ####[place] [phone] Interpretation (NOTE) Normal [facility] Comment on above: Result Comment: Perf [...] negative for the c.*97G>A variant (legacy name 94009Q>A) in the 3' untranslated region of the [...] F VIIIC, PRCFUN, AT3ASY, PRSCLT, APC, STACLT ####[address] [phone]#### HYPER ####[place] [phone] [phone] PT Gene Report See Below Normal [facility] Comment on above: Result Comment: (NOT E) Prothrombin Gene Mutation Laboratory Accession Number: [id number] Result: NORMAL Interpretation: The DNA sample is negative for the c.*97G>A variant (legacy name 29219K>A) in the 3' untranslated region of the Factor II (F2) gene. This result is not associated with an increased risk of thromboembolic disease. Thromboembolic disease is a multifactorial disorder and other causes are not excluded by this result. Methodology: Isolated Genomic DNA from the patient's blood specimen is evaluated for the c*97G>A ([id number]) variant of the F2 gene [RefSeq [id number];GRCh38/hg38] by multiplex polymerase chain reaction (PCR) followed by melting curve analysis. Limitations: This assay is designed to detect the c.*97G>A (75891L>A) variant in the F2 gene. Uncommon variants or single nucleotide polymorphisms may affect binding of probes and may rarely result in false negative, false positive or indeterminate results. This assay does not detect other disease-associated rare variants in F2 or other causes of thromboembolic disease. Disclaimer: This test was developed and its performance characteristics determined by [facility]'s [facility] [place] ([facility]). It has not been cleared or approved by the FDA. [facility] is regulated under CLIA as certified to perform high- complexity testing. This test is used for clinical purposes. It should not be regarded as investigational or for research. References: 1) Inheritied Thrombophilias in . ACOG Practice Bulletin. No. 197. [employer] College [employer]nec[employer]. Obsete Gynecol 2018;132:e18-34. 2) Meenu SR, Maribell FR, Trevor PH, and Milagros HAIRSTON. A common genetic variation in the 3'-untranslated region of the prothrombin gene is associated with elevated plasma prothrombin levels and an increase in venous thrombosis. Blood 88:3698-703, 1995. 3) Carol I, Anderson V, Reece C, Shayne K. Prothrombin 96473J>T: 16 new cases, association with the 71929V>G polymorphism, and literature review. J Thromb Haemost. 2009;9:1585-7. As reviewed by Robert Waterman, PhD, HCLD Performed By: #### F VIIIC, PRCFUN, AT3ASY, PRSCLT, APC, STACLT ####[facility] [address] [place], [place] [phone]#### HYPER ####[address] [place], [place] [phone] PT INR 1.1 Normal 0.9-1.3 [facility] Comment on above: Result Comment: Brianna min K Antagonist (VKA) Therapeutic Range: INR 2 to 3 (Target INR of 2.5) Note: For patients treated with VKA drugs, such as warfarin, the [employer] 2012 Guideline recommends [...] F VIIIC, PRCFUN, AT3ASY, PRSCLT, APC, STACLT ####[place] [phone]#### HYPER ####[place] [phone] PT Sec 11.4 sec Normal 9.7-13.0 [facility] Comment on above: Performed By: #### F VIIIC, PRCFUN, AT3ASY, PRSCLT, APC, STACLT ####[address] [phone]#### HYPER ####[address] [phone] Thrombin Time 18.0 sec Normal <18.6 [facility] Comment on above: Performed By: #### F VIIIC, PRCFUN, AT3ASY, PRSCLT, APC, STACLT ####[address] [phone]#### HYPER ####[facility] [address] [place] [phone] [phone] MRI BRAIN WO IVCONon 021 MRI BRAIN WO IVCON * * *Final Report* * * DATE OF EXAM: Apr 24 2021 12:34PM [facility] 0294 - MRI BRAIN WO IVCON / [...] 04/23/2021. OTHERWISE, UNREMARKABLE MRI BRAIN WITHOUT CONTRAST. Monotypist: EFRAIN Transcribe Date/Time: Apr 24 2021 12:36P Dictated by : ECHO TONY MD This examination was interpreted and the report reviewed and electronically signed by: ECHO TONY MD on Apr 24 2021 12:45PM EST [id number] Normal [facility] Procalcitoninon 04-24-2021 Procalcitonin 0.08 ng/mL Normal <0.09 [facility] Comment on above: Result Comment: For a guided interpretation of test results, please visit the Change in Procalcitonin Calculator, [email or web address]. Performed By: #### H SCRP, PROCAL, HBA1C ####[place] [phone]#### PT, CBCDIF, PTT, CK ####[place] [address] Protein C Functionalon 04-24 Protein C Functional 107 % Normal 76-147 [facility] Comment on above: Performed By: #### F VIIIC, PRCFUN, AT3ASY, PRSCLT, APC, STACLT ####[place] [phone]#### HYPER ####[place] [phone] Protein S Clottableon 2020 Protein S Clottable 104 % Normal 59-152 [facility] Comment on above: Result Comment: The specimen was treated with heparinase to remove heparin activity from the plasma. Performed By: #### F VIIIC, PRCFUN, AT3ASY, PRSCLT, APC, STACLT ####[address] [phone]#### HYPER ####[place] [phone] [phone] Protimeon 04-24-2021 PT INR 1.0 Normal 0.9-1.3 [facility] Comment on above: Result Comment: Brianna min K Antagonist (VKA) Therapeutic Range: INR 2 to 3 (Target INR of 2.5) Note: For patients treated with VKA drugs, such as warfarin, the [employer] 2012 Guideline recommends [...] Chest 2012, 141:7S-47S Yumiko RA, et al. [facility] 2017, 70: 252-289 Performed By: #### H SCRP, PROCAL, HBA1C ####[place] [phone]#### PT, CBCDIF, PTT, CK ####[place] [phone] PT Sec 10.9 sec Normal 9.7-13.0 [facility] Comment on above: Performed By: #### H SCRP, PROCAL, HBA1C ####[address] [phone]#### PT, CBCDIF, PTT, CK ####[place] [phone] Ultra-sensitive CRPon 2020 UltraSens C-ReacProt 1.4 mg/L Normal <3.1 [facility] Comment on above: Result Comment: (NOT [...] for Disease Control and Prevention and the [employer]. Circulation 2003;107:499-511. Performed By: #### H SCRP, PROCAL, HBA1C ####[facility] [address] [place], [place] [phone]#### PT, CBCDIF, PTT, CK ####[facility] [address] [place] [address] Urinalysison 04-24-2021 Bilirubin, Urine Negative Normal Negative [facility] Comment on above: Performed By: #### U AMIC, UA ####[facility] [address]36[address] [place] [address] Clarity (U) Clear Normal Clear [facility] Comment on above: Performed By: #### U AMIC, UA ####[facility] [address] [place] [address] Color (U) Yellow Normal Yellow [facility] Comment on above: Performed By: #### U AMIC, UA ####[facility] [address] [place] [address] Glucose Ql (U) Trace Critically abnormal Negative [facility] Comment on above: Performed By: #### U AMIC, UA ####[facility] [address] [place] [address] Hemoglobin/Blood,Ur Negative Normal Negative [facility] Comment on above: Performed By: #### U AMIC, UA ####[facility] [address]agqmuvaz[address]76 [place] [address] Ketones Ql (U) Trace Critically abnormal Negative [facility] Comment on above: Performed By: #### U AMIC, UA ####[facility] Wwsmeuglcx[address] [place] [address] Leukest Negative Normal Negative [facility] Comment on above: Performed By: #### U AMIC, UA ####[facility] [address] [place] [address] Nitrite Ql (U) Negative Normal Negative [facility] Comment on above: Performed By: #### U AMIC, UA ####[facility] [address] [place] [address] pH (U) 6.0 [pH] Normal 5.0-8.0 [facility] Comment on above: Performed By: #### U AMIC, UA ####[facility] [address] [place] [address] Protein, Urine 2+ Critically abnormal Negative [facility] Comment on above: Performed By: #### U AMIC, UA ####[facility] [address] [place] [address] Specific [place], Ur >=1.030 Normal 1.005-1.030 [facility] Comment on above: Performed By: #### U AMIC, UA ####[facility] [address] [place] [address] Urobilinogen Qn (U) 0.2 {Bao'U}/dL Normal 0.2-1.0 [facility] Comment on above: Performed By: #### U AMIC, UA ####[facility] [address] [place] [address] Urine Microscopic (FOR LAB U SE ONLY)on 04-24-2021 Bacteria Occasional Critically abnormal 0 [facility] Comment on above: Performed By: #### U AMIC, UA ####[facility] [address] [place] [address] Cast SEE COMMENT Normal 0 [facility] Comment on above: Result Comment: 0 Performed By: #### U AMIC, UA ####[facility] [address] [place] [address] Crystals LM Nom (Urine sed) SEE COMMENT Critically abnormal 0 [facility] Comment on above: Result Comment: Few Amorphous Performed By: #### U AMIC, UA ####[facility] [address] [place] [address] Epithelial cells LM Ql (Urine sed) SEE COMMENT Normal [facility] Comment on above: Result Comment: 0-5 Squamous Epithelial Cells Performed By: #### U AMIC, UA ####[facility] [address]nted[address] [place] [address] RBC 0-3 Normal 0-3 [facility] Comment on above: Performed By: #### U AMIC, UA ####[facility] Pehlsrzzxs0174 [address] WBC 0-5 Normal 0-5 [facility] Comment on above: Performed By: #### U AMIC, UA ####[facility] V[address]tuubx[address]h110[address] [place] [address] ALLIED HEALTHon 04-23-2021 ALLIED HEALTH HNO ID: [id number] Author: DODIE Neely Service: Radiology Author Type: Clinical Reserve Officer Type: Allied Health Filed: 04/23/2021 9:50 PM [...] Neely April 23, 2021 9:[address] [facility] CBCon 04-23-2021 Absolute nRBC <0.01 Normal <0.01 [facility] Comment on above: Performed By: #### C MP, MG1, CBC ####[facility] Junjyxbmuy8316 [address] Erythrocyte distribution width (RBC) [Ratio] 12.6 % Normal 11.5-15.0 [facility] Comment on above: Performed By: #### C MP, MG1, CBC ####[facility] Irlbynomcu7597 [address] Hematocrit (Bld) [Volume fraction] 47.6 % Normal 39.0-51.0 [facility] Comment on above: Performed By: #### C MP, MG1, CBC ####[facility] Micejkvlyl4[address] [place] [address] Hemoglobin (Bld) [Mass/Vol] 16.3 g/dL Normal 13.0-17.0 [facility] Comment on above: Performed By: #### C MP, MG1, CBC ####[facility] Nicuutdinb7572 [place] [address] MCH 30.3 pG Normal 26.0-34.0 [facility] Comment on above: Performed By: #### C MP, MG1, CBC ####[facility] [address] [place] [address] MCHC (RBC) [Mass/Vol] 34.2 g/dL Normal 30.5-36.0 [facility] Comment on above: Performed By: #### C MP, MG1, CBC ####[facility] [address] [place] [address] MCV (RBC) [Entitic vol] 88.5 fL Normal 80.0-100.0 [facility] Comment on above: Performed By: #### C MP, MG1, CBC ####[facility] [address] [place] [address] Platelet mean volume (Bld) [Entitic vol] 11.2 fL Normal 9.0-12.7 [facility] Comment on above: Performed By: #### C MP, MG1, CBC ####[facility] [address] [place] [address] Platelets (Bld) [#/Vol] 242 10*3/uL Normal 150-400 [facility] Comment on above: Performed By: #### C MP, MG1, CBC ####[facility] Tv[address]xzzknv9325 [place] [address] RBC (Bld) [#/Vol] 5.38 10*6/uL Normal 4.20-6.00 [facility] Comment on above: Performed By: #### C MP, MG1, CBC ####[facility] [address]ubojzxy4557 [place] [address] WBC (Bld) [#/Vol] 14.54 10*3/uL High 3.70-11.00 [facility] Comment on above: Performed By: #### C MP, MG1, CBC ####[facility] [address] [place] [phone] CT BRAIN WO IVCONon 04-23-20 CT BRAIN WO IVCON * * *Final Report* * * DATE OF EXAM: Apr 23 2021 9:50PM [facility] [place]IN [place] / [...] base and imaged soft tissues are unremarkable. Vba Programmer (topogram) images: No additional findings. IMPRESSION: No acute intracranial process identified. Monotypist: PSCB Transcribe Date/Time: Apr 23 2021 9:51P Dictated by : EDEN DENNIS MD This examination was interpreted and the report reviewed and electronically signed by: EDEN DENNIS MD on Apr 23 2021 9:55PM EST [id number] Normal [facility] Comp Metabolic Panelon 04-23 Albumin [Mass/Vol] 4.7 g/dL Normal 3.9-4.9 [facility] Comment on above: Performed By: #### C MP, MG1, CBC ####[facility] Fixnctbjcz[address]09 [place] [address] ALP [Catalytic activity/Vol] 80 U/L Normal 38-113 [facility] Comment on above: Performed By: #### C MP, MG1, CBC ####[facility] Cfkyejgcrk3105 [place] [address] ALT [Catalytic activity/Vol] 29 U/L Normal 10-54 [facility] Comment on above: Performed By: #### C MP, MG1, CBC ####[facility] [address] [place] [address] Anion gap [Moles/Vol] 14 mmol/L Normal 9-18 [facility] Comment on above: Performed By: #### C MP, MG1, CBC ####[facility] [address] [place] [address] AST [Catalytic activity/Vol] 22 U/L Normal 14-40 [facility] Comment on above: Performed By: #### C MP, MG1, CBC ####[facility] [address] [place] [address] Bilirubin [Mass/Vol] 0.5 mg/dL Normal 0.2-1.3 [facility] Comment on above: Performed By: #### C MUSA, MG1, CBC ####[facility] [address] [place] [address] Calcium [Mass/Vol] 9.3 mg/dL Normal 8.5-10.2 [facility] Comment on above: Performed By: #### C MP, MG1, CBC ####[facility] Lijrijxuup9879 [place] [address] Chloride [Moles/Vol] 96 mmol/L Low 97-105 [facility] Comment on above: Performed By: #### C MP, MG1, CBC ####[facility] [address] [place] [address] CO2 [Moles/Vol] 27 mmol/L Normal 22-30 [facility] Comment on above: Performed By: #### C MP, MG1, CBC ####[facility] Icnvfzkqnq0747 [place] [address] Creatinine [Mass/Vol] 0.79 mg/dL Normal 0.73-1.22 [facility] Comment on above: Performed By: #### C MP, MG1, CBC ####[facility] Sbgzlmwftg3395 [phone] eGFR- Amer. >[address] [facility] Comment on above: Performed By: #### C MP, MG1, CBC ####[facility] Zrefysrvfr1165 [address] eGFR-All Other Races >[address] [facility] Comment on above: Result Comment: eGFR [...] Performed By: #### C MP, MG1, CBC ####[facility] Smfvxtbbbh0974 [address]721[address] Glucose [Mass/Vol] 225 mg/dL High 74-99 [facility] Comment on above: Result Comment: The [employer] Association (ADA) provides guidance for cutoff [...] Standards of Medical Care in Diabetes 2016, [employer]. Diabetes Care. 2016.39(Suppl 1). Performed By: #### C MP, MG1, CBC ####[facility] Wkspcykwga9610 [address]21[address] Potassium [Moles/Vol] 4.3 mmol/L Normal 3.7-5.1 [facility] Comment on above: Performed By: #### C MP, MG1, CBC ####[facility] Bes[address]exiyb[address]62 [place] [address] Protein [Mass/Vol] 7.2 g/dL Normal 6.3-8.0 [facility] Comment on above: Performed By: #### C MP, MG1, CBC ####[facility] Cbiqcjlaay3242 [place] [address] Sodium [Moles/Vol] 137 mmol/L Normal 136-144 [facility] Comment on above: Performed By: #### C MP, MG1, CBC ####[facility] Jsgpmlhbfu6194 [place] [address] Urea nitrogen [Mass/Vol] 15 mg/dL Normal 9-24 [facility] Comment on above: Performed By: #### C MP, MG1, CBC ####[facility] [address] [place] [address] ED NOTEon 04-23-2021 ED NOTE HNO ID: [id number] Author: Carmina Arteaga RN Service: Nursing Author Type: Registered Nurse Type: ED Notes Filed: 04/23/2021 9:14 PM Note Text: Patient presents to ER with LST after vomiting many times since 1300. He was given zofran 8mg ivp en route, no relief. He states light sensitivity and dizziness. Placed on con't monitoring. Normal [facility] ED NOTE HNO ID: [id number] Author: Hay Pimentel RN Service: ? Author Type: Registered Nurse Type: ED Notes Filed: 04/23/2021 9:08 PM Note Text: Bed: ED-13 Expected date: 04/23/21 Expected time: 9:08 PM Means of arrival: [facility] Comments: LST Normal [facility] ED PROV NOTEon 04-23-2021 ED PROV NOTE HNO ID: [id number] Author: Erickson Almodovar MD Service: ? Author [...] in his chair and felt slightly dizzy. Brawley nauseated so went to the bathroom and [...] nerve deficit. Motor: No weakness. Comments: Patient's haqivs-hs-ffjx was normal with no evidence of ataxia. [...] the Ativan and is able to stand. Uivtex-fx-rtoq and gmau-xt-fesl were normal. Patient is still somewhat vertiginous [...] condition. EKG (more content not included)... Normal [facility] Magnesiumon 04-23-2021 Magnesium [Mass/Vol] 1.9 mg/dL Normal 1.7-2.3 [facility] Comment on above: Performed By: #### C MP, MG1, CBC ####[facility] [address] [place], [place] [phone] Troponin Ton 04-23-2021 Troponin T <0.010 Normal 0.000-0.029 [facility] Comment on above: Performed By: #### T NT ####[facility] Ehtzgryjcb1183 [phone] Vital Signs Date Time Vital Sign Value Performing Clinician Facility 05-04-2024 13:19-0400 Diastolic blood pressure 64 mm[Hg] Gabby Gama DO Work Phone: [facility] 05-04-2024 13:19-0400 Heart rate 83 /min Gabby Gama DO Work Phone: [facility] 05-04-2024 13:19-0400 SaO2% (BldA) [Mass fraction] 95 % Gabby Gama DO Work Phone: [facility] 05-04-2024 13:19-0400 Systolic blood pressure 126 mm[Hg] Gabby Gama DO Work Phone: [facility] 02-26-2023 14:57-0400 Diastolic blood pressure 55 mm[Hg] Татьяна Octavio PUBLIC HEALTH REPRESENTATIVE.BEEF TAGGER Work Phone: [facility] 02-26-2023 14:57-0400 Heart rate 63 /min Татьяна Octavio PUBLIC HEALTH REPRESENTATIVE.BEEF TAGGER Work Phone: [facility] 02-26-2023 14:57-0400 SaO2% (BldA) [Mass fraction] 95 % Татьяна Octavio PUBLIC HEALTH REPRESENTATIVE.BEEF TAGGER Work Phone: [facility] 02-26-2023 14:57-0400 Systolic blood pressure 110 mm[Hg] Татьяна Octavio PUBLIC HEALTH REPRESENTATIVE.BEEF TAGGER Work Phone: [facility] 11-30-2021 13:27-0400 Body height 172.7 cm Gabby Gama DO Work Phone: [facility] 11-30-2021 13:27-0400 Body weight 97.98 kg Gabby Gama DO Work Phone: [facility] 05-12-2022 13:27-0400 Diastolic blood pressure 66 mm[Hg] Gabby Gama DO Work Phone: [facility] 11-30-2021 13:27-0400 Heart rate 63 /min Gabby Gama DO Work Phone: [facility] 11-30-2021 13:27-0400 SaO2% (BldA) [Mass fraction] 95 % Gabby Gama DO Work Phone: [facility] 11-30-2021 13:27-0400 Systolic blood pressure 112 mm[Hg] Gabby Gama DO Work Phone: [facility] 10-19-2021 09:40-0400 Body height 172.7 cm Erickson Cast DO Work Phone: [facility] 10-19-2021 09:40-0400 Body weight 99.02 kg Erickson Cast DO Work Phone: [facility] 10-19-2021 09:40-0400 Diastolic blood pressure 70 mm[Hg] Erickson Cast DO Work Phone: [facility] 10-19-2021 09:40-0400 Heart rate 60 /min Erickson Cast DO Work Phone: [facility] 10-19-2021 09:40-0400 SaO2% (BldA) [Mass fraction] 98 % Erickson Cast DO Work Phone: [facility] 10-19-2021 09:40-0400 Systolic blood pressure 134 mm[Hg] Erickson Cast DO Work Phone: [facility] 09-20-2019 16:38-0500 BMI (Body Mass Index) 32.49 [...] Start: 05-04-2024 End: 05-04-2024 ambulatory GABBY GAMA Facility:[facility] Start: 02-26-2023 End: 02-26-2023 Office outpatient visit 25 minutes Татьяна Cunningham APRN.BEEF TAGGER Work Phone: [facility] Comment on above: [...] DTaP,Tdap,Td Vaccine (2 - Td or Tdap) [facility] Start: 05-04-2025 BP Controlled (<130/80) BP Controlle d (<130/80) [facility] Start: 03-22-2024 Covid-19 Vaccine () Covid-19 Vaccine () [facility] Start: 03-22-2024 Influenza vaccination Influenza Vacc ine (#1) [facility] Start: 02-27-2024 BP CONTROLLED (<130/80) BP CONTROLLE D (<130/80) [facility] Start: 07-22-2023 Advance Directive Discussion Advance Directive Discussion [facility] Start: 03-22-2023 Influenza vaccination [facility] Start: 11-30-2022 BP CONTROLLED (<130/80) BP CONTROLLE D (<130/80) [facility] Start: 07-22-2022 ADVANCE DIRECTIVE DISCUSSION ADVANCE DIRECTIVE DISCUSSION [facility] Start: 07-22-2022 DEPRESSION ASSESSMENT DEPRESSION ASS ESSMENT [facility] Start: 04-25-2022 Hepatitis B surface antibody level LDL CHOLESTEROL [facility] Start: 10-23-2021 Hemoglobin A1c measurement HbA1C [facility] Start: 10-23-2021 Hemoglobin A1c/Hemoglobin.total in Blood HBA1C [facility] Start: 10-10-2021 COVID-19 VACCINE (4 - Booster for Moderna series) COVID-19 VACCINE (4 - Booster for Moderna series) [facility] Start: 08-07-2021 COVID-19 VACCINE (4 - Booster for Moderna series) COVID-19 VACCINE (4 - Booster for Moderna series) [facility] Start: 08-07-2021 COVID-19 VACCINE (4 - Moderna series) COVID-19 VACCINE (4 - Moderna series) [facility] Start: 07-22-2021 ADVANCE DIRECTIVE DISCUSSION ADVANCE DIRECTIVE DISCUSSION [facility] Start: 11-01-2016 Pneumococcal Vaccine : 65+ (2 of 2 - PPSV23 or PCV20) Pneumococcal Vaccine: 65+ (2 of 2 - PPSV23 or PCV20) [facility] Start: 2012 PNEUMOVAX AGE 65 AND OVER WITH 5YR LOOKBACK (#1) PNEUMOVAX AGE 65 AND OVER WITH 5YR LOOKBACK (#1) [facility] Start: 1997 SHINGRIX VACCINE (1 of 2) SHINGRIX VACCINE (1 of 2) [facility] Start: 1992 COLOGUARD (FIT-DNA) COLOGUARD (FIT-D NA) [facility] Start: 1992 Colonoscopy COLONOSCOPY [facility] Start: 1992 COLORECTAL CANCER SCREENING COLORECTAL CANCER SCREENING [facility] Start: [address] COLONOGRAPHY [facility] Start: 1992 FECAL OCCULT BLOOD FECAL OCCULT BLOO D [facility] Start: [address] [facility] Start: 1966 Urine microalbumin profile DTAP,TDAP,TD (1 - Tdap) [facility] Start: 1965 ANNUAL PCP TEAM SERIALS LIBRARIAN JOSIAH DISEASE VISIT ANNUAL PCP TEAM CHRONIC DISEASE VISIT [facility] Start: 1965 Anxiety Screening Anxiety Screening [facility] Start: 1965 BP CONTROLLED (<130/80) BP CONTROLLE D (<130/80) [facility] Start: 1965 Depression Screening Depression Scre ening [facility] Start: 1965 HEPATITIS C SCREENING HEPATITIS C [facility] Start: 1965 Hepatitis C screening Hepatitis C [facility] Start: 1959 Adult depression screening assessment DEPRESSION SCREENING [facility] Start: 1957 3 comp foot exam completed DIABETIC FOOT EXAM [facility] Start: 1957 Diabetic foot examination Diabetic Foot Exam [facility] Start: 1957 Glaucoma screening Dilated Retinal E xam [facility] Start: 1957 Hepatitis B screening URINE AL BUMIN:CREATININE RATIO [facility] Start: 1957 Hepatitis C antibody , confirmatory test DILATED RETINAL EXAM [facility] Start: 1953 PNEUMOCOCCAL: 65+ (1 - PCV) PNEUMOCOCCAL: 65+ (1 - PCV) [facility] Start: 1947 ABDOMINAL AORTIC ANEURYSM SCREENING ABDOMINAL AORTIC ANEURYSM SCREENING [facility] End: 10-19-2022 ECG COMPLETE ECG COMPLETE ECG Routine Cerebrovascular accident (CVA), unspecified mechanism (HCC) Bilateral carotid artery stenosis Primary hypertension 1 Occurrences starting 10/19/2021 until 10/19/2022 [facility] Work Phone: Comment on above: 1 Occurrences starti ng 10/19/2021 until 10/19/2022 End: 11-30-2022 US CAROTID ARTERIES [facility] US CAROTID ARTERIES [facility] Vascular Lab Routine Cerebrovascular accident (CVA), unspecified mechanism (HCC) Occlusion and stenosis of right carotid artery 1 Occurrences starting 11/30/2021 until 11/30/2022 [facility] Work Phone: Comment on above: 1 Occurrences starti ng 11/30/2021 until 11/30/2022 [facility] Immunizations Immunization Date Immunization Notes Care Provider Charles martinez 07-31-2023 influenza virus vacc ine, unspecified formulation Gabby Gama DO Work Phone: [facility] Payers Date Payer Category Payer Medicare [id number] 2012 Medicare MEDICARE MEDICAR E A AND B [id number] 2012-Present [phone] [place] [address] Medicare [id number] 2012 Medicare [id number] Social History Date Type Detail Facility Assertion Tobacco smoking consumption unknown (finding) [facility] Work Phone: Start: 10-29-2011 End: 05-04-2024 Tobacco smoking status NHIS Ex-smoker [facility] End: 09-22-1991 History of tobacco use Current smoker [facility] Start: 10-29-2011 End: 05-04-2024 Tobacco use and exposure Smokeless tobacco non-user [facility] Start: 10-19-2021 End: 05-04-2024 Alcohol intake Current non-drinker of alcohol (finding) [facility] Start: 1945 Sex Assigned At Not on file [facility] Start: 08-26-2021 End: 09-25-2021 Exposure to SARS-CoV-2 (event) Not sure [facility] End: 09-22-1991 History of tobacco use Cigarette Smoker [facility] Start: 02-26-2023 End: 05-04-2024 History of Social function [facility] Start: 02-26-2023 End: 05-04-2024 Tobacco use panel [facility] National Score (1-100), lower number is lower risk 78 [facility] Goals Date Patient Goal Desired Activity /State [...] DO - 05/04/2024 1:15 PM Татьяна Marcos, PUBLIC HEALTH REPRESENTATIVE.BEEF TAGGER - 02/26/2023 3:01 PM EDTAddendum Note - Cathryn Hurtado - 01/18/2023 10:31 AM Kary Gama DO - 11/30/2021 4:47 PM EDT Note Date & Type Note Facility 05-04-2024 Note HNO ID: [id number] Author: GABBY GAMA DO Service: ? Author Type: Physician Type: Progress Notes Filed: 05/04/2024 14:19 Note Text: [facility] [place] [facility] OF VASCULAR SURGERY OUTPATIENT VISIT DATE May 04, 2024 OUTPATIENT VISIT TYPE ESTABLISHED SERVICE DATE: 05/04/2024 SERVICE TIME: 1:15 PM PRIMARY CARE PHYSICIAN: Claude Medina APRN.BEEF TAGGER HISTORY OF PRESENT ILLNESS: Mr. Fountain is [...] Take 20 mg by mouth twice daily. Yevqlvasumzrb-Ywktplmb-Fnfhlm (CENTRUM SILVER) ORAL Tab Take 1 tablet [...] DATE: May 04, 2024 TIME: 1:15 PM [facility] 05-04-2024 History of Present illness Narrative Images from the original note were not included. [facility] DEPARTMENT OF VASCULAR SURGERY OUTPATIENT VISIT DATE May 04, 2024 OUTPATIENT VISIT TYPE ESTABLISHED SERVICE DATE: 05/04/2024 SERVICE TIME: 1:15 PM PRIMARY CARE PHYSICIAN: Claude Medina APRN.BEEF TAGGER HISTORY OF PRESENT ILLNESS: Mr. Fountain is [...] Take 20 mg by mouth twice daily. Plhqxdfkpfhzx-Lsopakyi-Lrbzcf (CENTRUM SILVER) ORAL Tab Take 1 tablet [...] TIME: 1:15 PM documented in this encounter [facility] 02-26-2023 History of Present illness Narrative Images from the original note were not included. [facility] DEPARTMENT OF VASCULAR SURGERY OUTPATIENT VISIT DATE [...] Take 81 mg by mouth once daily. Bmkkeduyytspe-Tkzdoqll-Ebzswv (CENTRUM SILVER) ORAL Tab Take 1 tablet [...] TIME: 3:01 PM documented in this encounter [facility] 01-18-2023 Miscellaneous Notes Addended by: CATHRYN HURTADO on: 01/18/2023 10:31 AM Modules accepted: Orders Patients calling into the office stating that they where told that her was supposed to follow up in one year with a Mary Jo [facility] but there are no orders. Please advise documented in this encounter [facility] 11-30-2021 History of Present illness Narrative This office note has been dictated. Gabby Gama DO documented in this encounter [facility] 10-19-2021 History of Present illness Narrative Images from the original note were not included. [facility] OUTPATIENT VISIT DATE October 19, 2021 PRIMARY CARE PHYSICIAN: Claude Medina (Sarina) [address] [place], [place] [id number] HISTORY OF PRESENT ILLNESS: Mr. Fountain is [...] the left. He thankfully has an intact jamul of [place]. 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 Wsrkdhcytyzdf-Bqixabca-Ldwwqt (CENTRUM SILVER) ORAL Tab Take 1 tablet [...] Department of Medicine and Division of Cardiology, [facility] Divinity Professorglobal commodity manager [facility] Divinity Professor of Congestive Heart Failure Clinic [facility] Cardiology Office Divinity Professor [facility] Staff Supervisor Phosphorus Processing, Adonis Velásquez Department of Cardiovascular Medicine/[facility] [place], [facility] Clinical Gold Nib Grinder Profressor of Medicine, [facility] Please note: This note has been produced using speech recognition software and may contain errors related to that system including jd, punctuation, spelling, words, gender and phrases that may be inappropriate. documented in this encounter [facility] 04-26-2021 Note HNO ID: [id number] Author: Sia Herrera RN Service: Care Management [...] Physician Primary Care Physician Name/Phone: Claude Medina [phone] TRANSPORTATION ARRANGEMENTS: Transportation Arrangements: Car ADDITIONAL CONTACT [...] 26, 2021 TIME: 11:23 AM PAGER/CONTACT #: [phone] [facility] 04-25-2021 Note HNO ID: [id number] Author: Robert Quiles MD Service: Vascular Surgery [...] DATE: April 25, 2021 TIME: 6:18 PM [id number] Addendum CTA reviewed with in house radiology and center line reformatting performed personally on Sherri Intuition. Stenosis on left ICA <50%. Recommend continue aggressive medical management with DAPT, statin therapy. [facility] 04-25-2021 Note HNO ID: [id number] Author: Jasmine Alcantara DO Service: Hospital Medicine Author Type: Physician Type: Progress Notes Filed: 04/25/2021 3:48 PM Note Text: DEPARTMENT OF HOSPITAL MEDICINE PROGRESS NOTE SERVICE DATE: 04/25/2021 SERVICE TIME: 3:44 PM Hospital Medicine/Primary Attending: Jasmine Alcantara DO NIGHT AND WEEKEND COVERAGE: [place] COVERAGE: Days: [phone], please page attending physician. Nights: [phone], please page [facility] Night coverage pager [phone]. Subjective INTERVAL HPI: feels much better today. [...] (aspirin non-enteric coated 81mg ORAL OR 300mg MN) 81 mg PO/FT DAILY Given, 04/25 83804/24/21537 -- 04/24/21 06 enoxapar (more content not included)... [facility] 04-25-2021 Note HNO ID: [id number] Author: Sridhar Gonsales RN Service: Diabetes Education [...] April 25, 2021 TIME: 11:31 AM PAGER: [phone] [facility] 04-24-2021 Note HNO ID: [id number] Author: Sridhar Gonsales RN Service: Diabetes Education [...] April 24, 2021 TIME: 2:52 PM PAGER: [phone] [facility] 04-24-2021 Note HNO ID: [id number] Author: Jasmine Alcantara DO Service: Hospital Medicine Author Type: Physician Type: Progress Notes Filed: 04/24/2021 3:05 PM Note Text: DEPARTMENT OF HOSPITAL MEDICINE PROGRESS NOTE SERVICE DATE: 04/24/2021 SERVICE TIME: 2:52 PM Hospital Medicine/Primary Attending: Jasmine Alcantara DO NIGHT AND WEEKEND COVERAGE: [place] COVERAGE: : [phone], please page attending physician. Nights: [phone], please page [facility] Night coverage pager [phone]. Subjective INTERVAL HPI: doing better today. Seen [...] recent imaging Assessment/Plan Problem List Stroke (cerebrum) ([facility]) POA: Yes Type 2 diabetes mellitus ([facility]) POA: . Hypertension POA: . Obesity (BMI [...] C5 foraminal segment. 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 [facility] Evaluation note Diagnosis Cerebrovascular accident (CVA), unspecified mechanism (HCC)- Primary Encounter for screening for cardiovascular disorders Screening for other and unspecified cardiovascular conditions Bilateral carotid artery stenosis Occlusion and stenosis of carotid artery without mention of cerebral infarction Primary hypertension Unspecified essential hypertension Abnormal ECG Nonspecific abnormal electrocardiogram (ECG) (EKG) Mixed hyperlipidemia [facility] Cerebrovascular accident (CVA), unspecified mechanism (HCC) Stenosis of left carotid artery Occlusion and stenosis of carotid artery without mention of cerebral infarction Occlusion of right carotid artery Occlusion and stenosis of carotid artery without mention of cerebral infarction Occlusion and stenosis of right carotid artery Occlusion and stenosis of carotid artery without mention of cerebral infarction [facility] Stenosis of left carotid artery- Primary Occlusion and stenosis of carotid artery without mention of cerebral infarction [facility] Diagnosis Bilateral carotid artery stenosis- Primary Occlusion and stenosis of carotid artery without mention of cerebral infarction Primary hypertension Unspecified essential hypertension [facility] Diagnosis Bilateral carotid artery stenosis- Primary Occlusion and stenosis of carotid artery without mention of cerebral infarction [facility] Outpatient Procedure (Routine) - Closed Specialty Diagnoses / Procedures Referred By Ted anderson Referred To Contact [facility] Diagnoses Cerebrovascular accident (CVA), unspecified mechanism (HCC) Bilateral carotid artery stenosis Primary hypertension Abnormal ECG Procedures ECG COMPLETE ECG ROUTINE ECG W/LEAST 12 LDS W/I&R Erickson Cast DO [address] [place] [id number] [facility] [address] [place] [address] Referral ID Status Reason Start Date Expiration Date V isits Requested Visits Authorized [id number] Closed Auto-Generate d Referral 10/19/2021 10/19/2022 1 1 [facility] for referral (narrative)* Outpatient Procedure (Routine) - Pending Review Specialty Diagnoses / Procedures Referred By Contac t Referred To Contact [facility] Diagnoses Cerebrovascular accident (CVA), unspecified mechanism (HCC) Occlusion and stenosis of right carotid artery Procedures US CAROTID ARTERIES MECHE VAS LAB DUPLEX SCAN EXTRACRANIAL ART COMPL BI STUDY Gabby Gama DO [address] [place] [address] [facility] [address] [place] [address] Referral ID Status Reason Start Date Expiration Date Visits Requested Visits Authorized [id number] Pending Review Auto-Generat ed Referral 11/30/2021 11/30/2022 1 1 [facility] Summary Purpose Family History No Family History Records FoundNo Family History Records FoundNo Family History Records Found Advance Directives Documents on File Type Date Recorded 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 DATE CREATED AUTHOR AUTHOR'S ORGANIZ ATION 05/06/2024 [facility] Source Comments (unrecognize d section and content) In the event this informatio n is protected by the Federal Confidentiality of Alcohol and Drug Abuse Patient Records regulations: The Federal rules restrict any use of the information to criminally investigate or prosecute any alcohol or drug abuse patient.[facility] the event this information is protected by the Federal Confidentiality of Alcohol and Drug Abuse Patient Records regulations: The Federal rules restrict any use of the information to criminally investigate or prosecute any alcohol or drug abuse patient.[facility] the event this information is protected by the Federal Confidentiality of Alcohol and Drug Abuse Patient Records regulations: The Federal rules restrict any use of the information to criminally investigate or prosecute any alcohol or drug abuse patient.[facility] the event this information is protected by the Federal Confidentiality of Alcohol and Drug Abuse Patient Records regulations: The Federal rules restrict any use of the information to criminally investigate or prosecute any alcohol or drug abuse patient.[facility] the event this information is protected by the Federal Confidentiality of Alcohol and Drug Abuse Patient Records regulations: The Federal rules restrict any use of the information to criminally investigate or prosecute any alcohol or drug abuse patient.[facility] Reason for Visit (unrecogniz ed section and content) Reason Comments CARD New Patient Consult no cardiac issu es Reason Comments Established Patient Specialty Diagnoses / Procedures Referred By Contac t Referred To Contact Vascular Surgery Diagnoses Cerebrovascular accident (CVA), unspecified mechanism (HCC) Stenosis of left carotid artery Occlusion of right carotid artery Procedures CONSULT TO VASCULAR SURGERY NEW PATIENT VISIT LEVEL 5 Kristi Bae APRN.BEEF TAGGER [address] [place] [address] Referral ID Status Reason Start Date Expiration Date V isits Requested Visits Authorized [id number] Closed PCP Requested Referral 07/28/2021 07/28/2022 1 1 Reason Comments Appointment Reason Comments Established Patient Care Teams (unrecognized sec tion and content) Data Specialist Relationship Specialty Start Date End Date Claude Medina, PUBLIC HEALTH REPRESENTATIVE.BEEF TAGGER [address] [place], [place] [id number] PCP - General Family Practice 04/23/21 Data Specialist Relationship Specialty Start Date End Date Claude Medina, PUBLIC HEALTH REPRESENTATIVE.BEEF TAGGER [address] [place] [address] PCP - General Family Practice 04/23/21 Data Specialist Relationship Specialty Start Date End Date Claude Medina, PUBLIC HEALTH REPRESENTATIVE.BEEF TAGGER [address] [place] [address] PCP - General Family Medicine 04/23/21 Data Specialist Relationship Specialty Start Date End Date Claude Medina, PUBLIC HEALTH REPRESENTATIVE.BEEF TAGGER [address] [place] [address] PCP - General Family Medicine 04/23/21 Data Specialist Relationship Specialty Start Date End Date Claude Medina, PUBLIC HEALTH REPRESENTATIVE.BEEF TAGGER [address] [place] [address] PCP - General Family Medicine 04/23/21 FOR [...] BE BASED ON THE PRIMARY CLINICAL RECORDS. [facility] [employer] [facility]. provides no warranty or guarantee of the accuracy or completeness of information in this document.
[2025-04-14 22:03] LABS: Hematocrit 42.7 % (40-54); Hemoglobin 14.9 g/dL (13.0-16.5); Immature Granulocytes Count 0.010 X10^3/uL (0.0-0.0); Mean Corp Hgb Conc 34.9 g/dL (32-36); Mean Corpuscular Volume 85.2 fL (80-94); Mean Platelet Vol. 11.9 fl (6.2-12.0); NRBC Flagged by Analyzer 0 % (0-5); Platelet Count 211 K/mm3 (150-450); RBC Distribution Width CV 12.7 % (11.6-14.6); RBC Distribution Width SD 38.9 fl (35.1-43.9); Red Blood Count 5.01 M/mm3 (4.6-6.2); White Blood Count 7.9 K/mm3 (4.4-11.0)
[2025-04-14 22:17] LABS: AST(SGOT) 28 U/L (<=37); Alanine Aminotransfer ALT/SGPT 36 U/L (<=46); Albumin, Serum 4.5 g/dL (3.4-4.8); Alkaline Phosphatase 81 U/L (40-129); Anion Gap 11 (5-15); BUN 18 mg/dL (4-19); BUN/Creat Ratio 18.0 RATIO (10-20); Calcium,Total 9.5 mg/dL (7.6-11.0); Carbon Dioxide 25.2 mmol/L (21.0-32.0); Chloride 102 mmol/L (98-108); Cholesterol 107 mg/dL (<=200); Globulin 2.3 g/dL (2.2-4.2); Glucose 105 mg/dL (70-99); Low Density Lipoprotein Calc. 32 mg/dL; Potassium 4.2 mmol/L (3.3-5.1); Triglycerides 178 mg/dL; Very Low Density Lipoprotein 36 mg/dL (5-40); cholesterol:hdl ratio screen 2.73
== END | disposition home or self-care (01) ==
PROVIDERS: PCP Nurse Practitioner; Visit Provider Nurse Practitioner
DX: E11.65 Type 2 diabetes mellitus with hyperglycemia (principal); E78.1 Pure hyperglyceridemia; I10 Essential (primary) hypertension; N40.0 Benign prostatic hyperplasia without lower urinary tract symptoms
CPT/HCPCS: 80053; 80061; 83036; 85025